=== PATIENT | male | born 1940 | race Caucasian/White ===

== ENCOUNTER 2016-12-26 05:09 | Inpatient (IN) | payer MEDICARE, OTHER ==
[2016-12-26] VITALS (16 sets, daily range): BP systolic 99–150; BP diastolic 63–80; PULSE 76–119; RESP 14–24; O2SAT 91–99
[~2016-12-26] VITALS: Ht 180.3 cm; Wt 104.2 kg
[~2016-12-26 05:09] MED LIST: ALBU8.5H2 INHALATION; ATEN25TA PO; BECL8.7A6 IH; FEXO-46 PO; IPRA3AMP IH; MONT10TA23 PO; OMEP20TA86 PO; OXYC5TAB72 PO; POLY17PO6 PO
[2016-12-26] MEDS ORDERED: Albuterol-Ipratropium 3 mL Inhalation Solution ONE (05:17)
[2016-12-26] MEDS ORDERED: Albuterol 2.5 mg/3 mL Inhalation Solution NEB ONE ×2 (05:24→05:25)
[2016-12-26] MEDS ORDERED: MethylprednisoLONE Sodium Succinate 62.5 mg/mL 2 mL Inj IVPUSH ONE (05:25)
[2016-12-26 05:26] LABS: BASOPHILS % (AUTO) 0.5 % (0-3); EOSINOPHILS % (AUTO) 2.2 % (0-5); MONOCYTES % (AUTO) 5.9 % (4-12); Mean Corpuscular Hemoglobin 29.3 pg (27.0-35.0); Platelet Count 240 bil/L (150-400)
[2016-12-26 05:52] LABS: TROPONIN T 0.01 ug/L (0.0-0.011)
--- NOTE | 2016-12-26 06:02 | ED.REPORT ---
HPI-Dyspnea / Wheezing Date of Service Dec 26, 2016 ED Provider: Timmy Pozo MD 76 year old male with a history of COPD and HTN presents to the ER via EMS due to acute on chronic shortness of breath onset just prior to arrival. He states that he recently started smoking again, about 1/2 pack daily for the past 3-4 weeks and reports associated respiratory symptoms. Over the past 4 days he has increased his cigarette consumption. This morning when he went outside to smoke he felt dramatically worsening shortness of breath and called EMS. Patient denies fever, chills, nausea, vomiting, diarrhea, and any significant cardiac history. At home he is on O2, and takes a DuoNeb every 4 hours. Nursing Notes Stated Complaint: DIFFICULTY BREATHING Chief Complaint: Respiratory Distress Nursing Notes Reviewed: Yes Allergies: Coded Allergies: Penicillins (Verified Allergy, Severe, Skin rash, 12/26/16) Scheduled Atenolol (Atenolol) 25 Mg Tablet 25 MG PO DAILY Fexofenadine (Fexofenadine) 60 Mg Tablet 60 MG PO DAILY Fluticasone Propionate (Flovent HFA 110 mcg) Unknown Strength Aer.w.adap Unknown Dose IH BID Ipratropium/Albuterol Sulfate (Iprat-Albut 0.5-3(2.5) mg/3 mL Inhalant Soln) 3 Ml Ampul.neb 3 ML IH Q4H Montelukast (Montelukast) 10 Mg Tablet 10 MG PO HS Omeprazole (Omeprazole) 20 Mg Tablet.dr 20 MG PO BID Scheduled PRN Albuterol HFA (Proair HFA) 8.5 Gm Hfa.aer.ad 4 PUFFS INHALATION BID PRN PRN For Shortness of Breath General Time Seen by MD: 05:25 Chief Complaint Shortness of breath Hx Obtained From: Patient Arrived By: Ambulance Onset Occurred: Just prior to arrival Symptom Duration: Since onset Associated with: Denies: Fever, Nausea, Vomiting Pertinent Negative: Pt denies other symptoms Context Related History: Reports: COPD, Denies: Congestive heart failure Similar Sx Previous: Yes Past Medical History Past Medical History RA Sleep apnea History of pancreatitis Denies history of AL Reports: COPD, GERD, Hyperlipidemia, Hypertension, Denies: Cancer, Congestive heart failure, Coronary artery disease, Diabetes mellitus, Stroke, Transient ischemic attack Denies: Atrial fibrillation Past Surgical History Right great toe arthroplasty Right knee repair Reports: Appendectomy, Cholecystectomy Smoking History Current Every Day Smoker Review of Systems Constitutional: Denies: Chills, Fever Respiratory: Reports: Shortness of breath, Denies: Non-productive cough Cardiovascular: Denies: Chest pain, Palpitations Musculoskeletal: Denies: Extremity swelling Complete sys rev & neg: except as marked. GI: Denies: Diarrhea, Nausea, Vomiting Physical Exam Initial Vital Signs Vital Signs (First) Date Time Temp Pulse Resp B/P Pulse Ox O2 Delivery O2 Flow Rate FiO2 12/26/16 05:13 37.0 118 24 150/80 99 12/26/16 05:59 Venturi Mask 9 Initial VS: Reviewed Head / Eyes: Atraumatic, Normocephalic Abdomen / GI: Soft, Non-tender, No guarding, No rebound, No distention Extremities: Vascular intact, Neuro intact, No swelling, No tenderness Skin: Warm, Dry, No cyanosis Neurologic: Alert, Oriented, Nonfocal General/Constitutional: Awake, Alert, Well developed, Well nourished Neck: Atraumatic, Supple, No meningismus, Full range of motion, No swelling, Non-tender, No masses Respiratory / Chest: No rales, No rhonchi Wheezing / Retractions: Positive: Wheezing expiratory, Wheezing mild Bloody, dark sputum. Cardiovascular: Regular rhythm, No murmurs Heart Rate / Rhythm: Positive: Tachycardia Interpretation & Diagnostics Lab Results Interpretation Result Diagram: 12/26/1622 12/26/16 0522 Test 12/26/16 05:22 12/26/16 05:55 White Blood Count 19.3th/mm3 (3.8-10.1) Red Blood Count 5.84mil/mm3 (4.40-5.80) Hemoglobin 17.1g/dL (13.8-17.2) Hematocrit 51.4% (41.0-50.0) Mean Corpuscular Volume 88.0fL (81-100) Mean Corpuscular Hemoglobin 29.3pg (27.0-35.0) Mean Corpuscular Hemoglobin Concent 33.3% (32.0-37.0) Red Cell Distribution Width 14.3% (12.3-15.4) Platelet Count 240bil/L (150-400) Neutrophils (%) (Auto) 80.0% (40-74) Lymphocytes (%) (Auto) 10.8% (14-46) Monocytes (%) (Auto) 5.9% (4-12) Eosinophils (%) (Auto) 2.2% (0-5) Basophils (%) (Auto) 0.5% (0-3) Sodium Level 139mEq/L (134-144) Potassium Level 4.0mEq/L (3.5-5.2) Chloride Level 100mEq/L (97-108) Carbon Dioxide Level 22mmol/L (18-29) Blood Urea Nitrogen 9mg/dL (8-27) Creatinine 0.71mg/dL (0.76-1.27) Estimat Glomerular Filtration Rate 115mL/min (>59) Glucose Level 99mg/dL (60-99) Calcium Level 9.8mg/dL (8.5-10.1) Magnesium Level 2.1mg/dL (1.6-2.6) Total Bilirubin 0.3mg/dL (0.0-1.2) Aspartate Amino Transf (AST/SGOT) 29U/L (0-50) Alanine Aminotransferase (ALT/SGPT) 31U/L (0-44) Alkaline Phosphatase 141U/L (25-160) Troponin T 0.010ug/L (0.0-0.011) Total Protein 8.2g/dL (6.4-8.4) Albumin 5.0g/dL (3.4-5.0) Procalcitonin 0.06ng/mL (0.00-0.08) Lactic Acid Level 1.2mmol/L (0.4-2.0) Hold Nguyen Top Tube Received (Received) ECG Interpretation ECG Interpretation: Sinus tachycardia Nonspecific T wave abnormal Mutliple PVC's Time: 06:04 Interpreted by: ED physician X-Ray Chest Interpretation Chest Xray Interpretation: No infiltrate. View: Portable, 1 view Interpretation / Wet Read by: Wet read ED physician Re-Eval/Medical Decision Med Decision/Clinical Course I decided to admit this gentleman empirically for pneumonia despite the relatively normal x-ray and lack of infectious symptoms because of his purulent appearing sputum with blood streaking and severe leukocytosis in the setting of severe COPD. Source of Hx: Old records Re-Evaluation/Progress : Time of Eval: 06:16 Re-Evaluation/Progress Note: Discussed physical examination results and need for admission. Patient is amenable to the plan. All other questions addressed. Consultation : Referral / Consult Name: MichealMax MD Consulted With: Hospitalist Requested Call at: 06:26 Call Returned at: 07:41 Labor Employment Associate: Agrees with eval, Agrees with plan, Accepts admit Counseled Regarding: Diagnosis, Lab results, Need for admission Discharge & Departure Impression: Primary Impression: Pneumonia, community acquired Additional Impression: COPD exacerbation Disposition: ADMITTED TO HOSPITAL Discharge Condition All VS Reviewed: Yes Condition: Stable Referrals: Jane Morales MD (PCP) Shayla Attestation Portions of this note were transcribed by Lowell Arellano. I, Dr. Pozo, personally performed the history, physical exam and medical decision-making; I reviewed and confirmed the accuracy of the information in the transcribed note. Signed by: Shayla Griffin, 12/26/2016 and 07:44 copies to: Jane Morales MD, Kirk H MD Dec 26, 2016 06:02 LOWELL ARELLANO Dec 26, 2016 06:10
[2016-12-26 06:04] LABS: Magnesium 2.1 mg/dL (1.6-2.6)
[2016-12-26] MEDS ORDERED: Azithromycin Inj 500 MG in Dextrose 5% 250 ML IV ONE (06:15)
[2016-12-26] MEDS ORDERED: cefTRIAXone Inj 2,000 MG in Dextrose 5% Minibag Plus 50 ML IV ONE (06:15)
[2016-12-26] MEDS ORDERED: 0.9% Sodium Chloride 1,000 ML IV ONE (06:15)
[2016-12-26] MEDS ORDERED: FLUT12AE8 IH (07:17)
[2016-12-26] MEDS ORDERED: Polyethylene Glycol (PEG) 17 Gm Powder PO PRN (07:50)
[2016-12-26] MEDS ORDERED: Ondansetron 2 mg/mL 2 mL Inj IVPUSH PRN (08:10)
[2016-12-26] MEDS ORDERED: Alum-Mag Hydrox-Simeth 30 mL Suspension PO PRN (08:10)
[2016-12-26] MEDS ORDERED: FEXOFENADINE 60 MG PO SCH (08:30)
--- NOTE | 2016-12-26 08:35 | NUR ---
ADMIT Report received from Sage Veras RN, from ED. Pt brought onto floor via gurney at 0835. Pt unsteady on feet, but able to bear weight. Admit interventions and MED REC completed by admit nurse. Pt oriented to unit, room and call light. Belongings recorded and placed in closet/bedside with waiver signed. Plan to have watch video when we can locate. Pt given pt services booklet. No apparent s/sx of distress. Pt plan put on board and instructions given about care.
--- NOTE | 2016-12-26 08:56 | DRSVH ---
PROCEDURE: X-RAY CHEST ONE VIEW, PORTABLE ([id number]) INDICATIONS: sob TECHNIQUE: One view of the chest was acquired. COMPARISON: Located Within [facility], CR, CHEST 1VW (PORTABLE), 03/12/2013, 9:13. [facility] al, CT, CT CHEST WO CON, 03/01/2016, 14:19. FINDINGS: Surgical changes and devices: None. Lungs and pleura: No pleural effusions or pneumothorax. Lungs are clear. Mediastinum: Mediastinal contours appear normal. Heart size is normal. Bones and chest wall: No suspicious bony lesions. Overlying soft tissues appear unremarkable. Bone island redemonstrated within the left fifth posterior rib. IMPRESSION: No acute cardiopulmonary disease. Dictated by: Robert Pardo RRA Interpreted: Svetlana Ngo MD on 12/26/2016 at 8:56 Transcribed by: ISIS on 12/26/2016 at 8:56 Approved by: Svetlana Ngo MD, PhD on 12/26/2016 at 16:30
[2016-12-26 10:24] LABS: APPEARANCE,URINE HAZY (CLEAR,HAZY); COLOR,URINE STRAW (YELLOW)
[2016-12-26 10:25] LABS: OCCULT BLOOD,URINE TRACE (NEGATIVE); UROBILINOGEN,URINE NORMAL (NORMAL)
[2016-12-26] MEDS: MethylprednisoLONE Sodium Succinate 40 mg/mL Inj IVPUSH SCH ×3 (10:35→23:43)
[2016-12-26] MEDS: Pantoprazole 20 mg ER24 Tablet PO SCH ×2 (10:35→17:12)
--- NOTE | 2016-12-26 11:50 | NUR ---
Pt off floor to CT via WC
--- NOTE | 2016-12-26 12:28 | DRSVH ---
PROCEDURE: CT ANGIO CHEST PULMONARY EMBOLISM ([id number]) INDICATIONS: Hypoxia with normal CXR TECHNIQUE: After the administration of intravenous contrast, 2 mm thick sections acquired from the pulmonary api marcy to the posterior costophrenic angles. 3-dimensional maximum intensity projection (MIP) coronal a nd sagittal reformats were then acquired through the thorax. For radiation dose reduction, the follo wing was used: automated exposure control, adjustment of mA and/or kV according to patient size. COMPARISON: [facility], CT, CT CHEST WO CON, 03/01/2016, 14:19. FINDINGS: Image quality: Excellent. Pulmonary arteries: Pulmonary arteries are normal in size, and demonstrate no intraluminal filling d efects to suggest central pulmonary embolism. Lungs and pleura: No evidence of pneumonia, nor edema. Multiple subpleural nodules within the right u pper lobe, right posterior lung base, and left upper lobe, are unchanged. No pleural effusions or pne umothorax. Central and peripheral airways are patent. Mediastinum: Heart size is normal, without pericardial effusion. There is calcification of the coron grant vasculature. No mediastinal or hilar adenopathy. Thoracic aorta is normal in caliber and enhance ment. Esophagus is normal in caliber, without hiatal hernia. Bones and chest wall: No suspicious bony lesions. Ribs and thoracic spine appear intact throughout. Thyroid gland is within normal limits. No axillary or supraclavicular adenopathy. Abdomen: Visualized portions of the upper abdomen demonstrate no change in the peripherally calcifie d low-density focus in the right hepatic dome laterally, and no change in the low-density focus withi n the medial segment left hepatic lobe measuring roughly 20 mm. There is a 16 mm diameter low-density left adrenal nodule, which demonstrates canceled units of -1.2, consistent with an adenoma, which ap pears to be new since the prior examination. IMPRESSION: 1. No acute process. No pulmonary embolus. 2. No change in small bilateral pulmonary nodules. 3. Cardiomegaly and coronary artery disease. 4. Left adrenal adenoma. Dictated by: Esperanza Self M.D. on 12/26/2016 at 12:22 Approved by: Esperanza Self M.D. on 12/26/2016 at 12:27
[2016-12-26] MEDS: Albuterol 2.5 mg/3 mL Inhalation Solution NEB PRN ×2 (14:03→16:15)
[2016-12-26] MEDS: Albuterol-Ipratropium 3 mL Inhalation Solution NEB SCH ×2 (14:30→20:59)
--- NOTE | 2016-12-26 16:04 | NUR ---
O2 Needs/Ambulation Upon arrival to floor pt tapicnic and SOB with any activity. Given 2-3L O2 NC as needed. Pt respirations WNL, SpO2 in high 90's. After SOB episode was over, place pt back on Room Air. CPOX monitoring in place. Pt satting in mid 90's and tolerating well. Pt directed to not overexert self and call for assistance to ambulate. Ambulation Upon arrival pt very unsteady but able to bear weight. After eating and later in shift, pt found to be steady on feet. Continuing as SBA for safety.
--- NOTE | 2016-12-26 17:31 | PCM.HPMED ---
Subjective Date of Service Dec 26, 2016 Primary Provider: Admitting Physician: Max Burton MD Primary Care Physician: Jane Morales MD Attending Physician: Max Burton MD Chief Complaint: "I was extremely short of breath" History of Present Illness: Patient is a 76-year-old white male with history of COPD and hypertension who recently started smoking again approximately half a pack a day for the past 3 or 4 weeks and reports associated respiratory symptoms. Over the past 4 days he has increased his cigarette consumption. This morning when he went outside to smoke he felt dramatically worse with increased shortness of breath and he went back inside and lacks a door and called EMS services. Patient was seen by EMS services was given a DuoNeb treatment in route to the hospital. Patient was brought to [facility] emergency room where he was evaluated by Dr. Timmy Pozo. Dr. Pozo did a CBC which showed a white blood cell count of 19,300.. Patient had a chest x-ray which showed no acute disease. However due to the elevated white blood cell count and acute on chronic respiratory failure patient was presumed to have pneumonia or acute exacerbation of chronic bronchitis with exacerbation of COPD with acute and chronic respiratory failure and patient was admitted to the hospital service for further evaluation and treatment recommendations. Review of Systems: General: Patient has had no fever chills or sweats. However, he states that he has not intentionally lost 15 pounds recently by putting himself on a diet. HEENT: Patient has no headache, patient has no diplopia, patient has no changes in vision. Patient has no problems with his ears, nose or throat. Patient wears upper and lower dentures.. Patient has no pharyngitis or history of thrush. Neck: Patient has no stiffness in the neck. Patient has no lymphadenopathy. Patient has no other problems with their neck. Pulmonary: Patient has shortness of breath which has improved since treatment in the emergency room. He still is uncomfortable. And his breathing interferes with his ability to speak somewhat has known COPD and is on oxygen at home. However he admits to recently starting smoking and increasing in number of cigarettes that he has been smoking a day. Cardiovascular: Patient has no chest pain. Patient has no history of heart murmur. Patient has no palpitations. Patient has no history of myocardial infarction. Patient has no history of coronary artery disease. He has never had a stress test. Gastrointestinal: Patient has no history of hepatitis A, B or C. Patient has no history of peptic ulcer disease. Patient has no history of gastroesophageal reflux disease. Patient has no history of nausea, vomiting, or diarrhea. Patient has no history of hematemesis, hematochezia, or melena. Patient has no history of colitis. She was diagnosed with gallstone pancreatitis probably 5 years ago and this resulted in a cholecystectomy. Renal: Patient has no history of kidney disease. No history of kidney stones. Genitourinary: Patient has no history of dysuria, frequency, or incontinence at this time. However he had a TURP for benign prostatic hypertrophy. Now he only gets up to the bathroom once at night. And he has no incontinence. Musculoskeletal: Patient has no history of muscular skeletal problems. Neurologic: Patient has no history of stroke, no history of seizure, no history of TIA. Psychiatric: Patient has no history of psychiatric problems. Although he has had a lot of anxiety over the news lately and attributes his relapse into cigarette smoking to this. The remainder of the entire review of systems was reviewed with patient and is as mentioned above otherwise negative. Allergies Coded Allergies: Penicillins (Verified Allergy, Severe, Skin rash, 12/26/16) Home Medications Scheduled Atenolol (Atenolol) 25 Mg Tablet 25 MG PO DAILY Fexofenadine (Fexofenadine) 60 Mg Tablet 60 MG PO DAILY Fluticasone Propionate (Flovent HFA 110 mcg) Unknown Strength Aer.w.adap Unknown Dose IH BID Ipratropium/Albuterol Sulfate (Iprat-Albut 0.5-3(2.5) mg/3 mL Inhalant Soln) 3 Ml Ampul.neb 3 ML IH Q4H Montelukast (Montelukast) 10 Mg Tablet 10 MG PO HS Omeprazole (Omeprazole) 20 Mg Tablet.dr 20 MG PO BID Scheduled PRN Albuterol HFA (Proair HFA) 8.5 Gm Hfa.aer.ad 4 PUFFS INHALATION BID PRN PRN For Shortness of Breath PMH RA is on his computerized list of past medical history patient denies any history of rheumatoid arthritis. He certainly is not being treated for. Sleep apnea, he is not sure about this diagnosis either. History of pancreatitis. He did have gallstone pancreatitis in the past Denies history of NC or other heart disease however he has never had a stress test. Patient report: COPD for which he sees Dr. Rod, GERD, Hyperlipidemia, Hypertension, Surgical History Patient has had a tonsillectomy as a young boy. Patient has had all 4 of his wisdom teeth removed Patient has had a transurethral resection of his prostate. Patient has had a right great toe arthroplasty. Patient has had a right knee repair by arthroscopy. Patient has had a cholecystectomy 5 years ago here at [facility] by Dr. Guerrero. Patient had an umbilical hernia repair with mesh by Dr. Rod Patient's computerized chart states that he had an appendectomy. He states that he has never had an appendectomy. Family History Patient's mother in her 70s from emphysema. Patient's father in his 70s from "cancer" Patient has 1 sibling a sister who is "overweight" he does not know of any other medical problems that his sister might have Social History Hx Alcohol Use: Yes (he drank beer for the first 6 years that he was in the but since then has not had much appetite for alcohol) Hx Substance Use: No Hx Tobacco Use: Yes (Quit last year 2008) Smoking Status: Current Every Day Smoker Additional Information He was born in [place] and graduated high school there and [place]. He went to 2 years of college and then dropped out. 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 He was for 7 years and has one child who is a daughter who lives in [place]. He tells me that his ex- could not handle substance abuse and committed suicide. For the first 6 years in the he drank quite a bit of beer, but since then has not had much of an appetite for alcohol She smoked 1 pack per day from the age of approximately 23 to his 60s. He then quit and then recently approximately 3-4 weeks ago started smoking again. He has been smoking half pack per day he attributes this to the negative news that he is seeing on TV and reading the paper. More recently he smoking even more. Exam Vital Signs Vital Sign - Last Date Time Temp Pulse Resp B/P Pulse Ox O2 Delivery O2 Flow Rate FiO2 12/26/16 16:15 82 20 95 Nasal Cannula 2.00 12/26/16 10:44 36.6 130/69 Exam General: Patient is lying supine in bed with his head elevated at approximately 20. HEENT: Head is atraumatic and normocephalic. Eyes: Pupils are equally round and reactive to light and accommodation. Extraocular muscles are intact. Sclera are white, anicteric. Subconjunctival mucosa is pink. Ears and nose are unremarkable. Oropharynx: There is no mucosal lesions, there is no thrush, there is no pharyngitis. Neck: Is supple, there are no nodes, or masses or tenderness. Chest: Is significant for bilateral scattered wheezing and decreased breath sounds throughout. There are no rubs or rhonchi noted Heart: Rate, rhythm is regular. There is no murmur, rub or gallop. Abdomen: Good bowel sounds are present. Abdomen is soft, nontender, no organomegaly or masses were appreciated. Extremities: Are symmetrical and well perfused. There is no edema, there is no cellulitis, no rash. Neurologic: There are no focal neurological deficits. Cranial nerves II through XII are intact. There are no sensory or motor deficits. Psychiatric: Patients mood is calm and shows no sign of agitation. Genital: Deferred Rectal: Deferred Lab and Diagnostics Result Diagram: 12/26/1652112/26/16521 X-Rays, CTs and MRIs PROCEDURE: X-RAY CHEST ONE VIEW, PORTABLE ([id number]) INDICATIONS: sob TECHNIQUE: One view of the chest was acquired. COMPARISON: [facility], CR, CHEST 1VW (PORTABLE), 03/12/2013, 9:13. [facility], CT, CT CHEST WO CON, 03/01/2016, 14:19. FINDINGS: Surgical changes and devices: None. Lungs and pleura: No pleural effusions or pneumothorax. Lungs are clear. Mediastinum: Mediastinal contours appear normal. Heart size is normal. Bones and chest wall: No suspicious bony lesions. Overlying soft tissues appear unremarkable. Bone island redemonstrated within the left fifth posterior rib. IMPRESSION: No acute cardiopulmonary disease. Dictated by: Robert Pardo RRA Interpreted: Svetlana Ngo MD on 12/26/2016 at 8:56 Transcribed by: ISIS on 12/26/2016 at 8:56 Approved by: Svetlana Ngo MD, PhD on 12/26/2016 at 16:30 PROCEDURE: CT ANGIO CHEST PULMONARY EMBOLISM ([id number]) INDICATIONS: Hypoxia with normal CXR TECHNIQUE: After the administration of intravenous contrast, 2 mm thick sections acquired from the pulmonary apices to the posterior costophrenic angles. 3-dimensional maximum intensity projection (MIP) coronal and sagittal reformats were then acquired through the thorax. For radiation dose reduction, the following was used: automated exposure control, adjustment of mA and/or kV according to patient size. COMPARISON: [facility], CT, CT CHEST WO CON, 03/01/2016, 14:19. FINDINGS: Image quality: Excellent. Pulmonary arteries: Pulmonary arteries are normal in size, and demonstrate no intraluminal filling defects to suggest central pulmonary embolism. Lungs and pleura: No evidence of pneumonia, nor edema. Multiple subpleural nodules within the right upper lobe, right posterior lung base, and left upper lobe, are unchanged. No pleural effusions or pneumothorax. Central and peripheral airways are patent. Mediastinum: Heart size is normal, without pericardial effusion. There is calcification of the coronary vasculature. No mediastinal or hilar adenopathy. Thoracic aorta is normal in caliber and enhancement. Esophagus is normal in caliber, without hiatal hernia. Bones and chest wall: No suspicious bony lesions. Ribs and thoracic spine appear intact throughout. Thyroid gland is within normal limits. No axillary or supraclavicular adenopathy. Abdomen: Visualized portions of the upper abdomen demonstrate no change in the peripherally calcified low-density focus in the right hepatic dome laterally, and no change in the low-density focus within the medial segment left hepatic lobe measuring roughly 20 mm. There is a 16 mm diameter low-density left adrenal nodule, which demonstrates canceled units of -1.2, consistent with an adenoma, which appears to be new since the prior examination. IMPRESSION: 1. No acute process. No pulmonary embolus. 2. No change in small bilateral pulmonary nodules. 3. Cardiomegaly and coronary artery disease. 4. Left adrenal adenoma. Dictated by: Esperanza Self M.D. on 12/26/2016 at 12:22 Approved by: Esperanza Self M.D. on 12/26/2016 at 12:27 Assessment & Plan Patient is a 76-year-old white male with history of COPD and hypertension who recently started smoking again approximately half a pack a day for the past 3 or 4 weeks and reports associated respiratory symptoms. Over the past 4 days he has increased his cigarette consumption. This morning when he went outside to smoke he felt dramatically worse with increased shortness of breath and he went back inside and lacks a door and called EMS services. Patient was seen by EMS services was given a DuoNeb treatment in route to the hospital. Patient was brought to [facility] emergency room where he was evaluated by Dr. Timmy Pozo. Dr. Pozo did a CBC which showed a white blood cell count of 19,300.. Patient had a chest x-ray which showed no acute disease. However due to the elevated white blood cell count and acute on chronic respiratory failure patient was presumed to have pneumonia or acute exacerbation of chronic bronchitis with exacerbation of COPD with acute and chronic respiratory failure and patient was admitted to the hospital service for further evaluation and treatment recommendations. # Acute on chronic respiratory failure with hypoxia - Likely due to AECB (known as acute exacerbation of chronic bronchitis) - We will continue SVN treatments with DuoNeb and albuterol. - We will continue with IV Solu-Medrol, scheduled basis. 125 mg were given in the emergency room. - We will continue with Rocephin and azithromycin given in the emergency room. -We will check blood cultures which are pending - We will order sputum cultures - We will check a respiratory pathogen panel by PCR - We will check a strep pneumonia and urinary antigen and Legionella urinary antigen. - We will continue montelukast # Hypertension - We will continue patient's home medications of atenolol - We will continue to monitor closely # Anxiety leading to recent recurrent tobacco use - Patient counseled on ways to alleviate his anxiety. - The patient was encouraged to quit smoking. # Multiple subpleural nodules within the right upper lobe, right posterior lung base, and left upper lobe - These are reported to be unchanged compared to previous CT scan done in February 2016.. - We will check cocci serology and cryptococcal serology. # Disposition: Patient is likely to be here for a few days in order to improve his acute on chronic respiratory failure. Pain Evaluation: Adequate Pain Control GI Prophylaxis: Proton Pump Inhibitor VTE Prophylaxis: Sub-Q Enoxaparin Resuscitation Status: CPR: Attempt Resuscitation Max Burton MD Dec 26, 2016 17:31
--- NOTE | 2016-12-26 18:16 | NUR ---
TELE Tele reported pt SR 90's with PVCs in pairs and triplets, becoming more common this afternoon. MD notified, new orders placed. Continuing to follow up with plan.
[2016-12-26 19:21] LABS: Magnesium 2.1 mg/dL (1.6-2.6)
--- NOTE | 2016-12-26 22:50 | NUR ---
Resp Pt has faint wheezes to lung bases. Overall decreased. Pt states, "I am feeling much better." He does not require oxygen at this time. Reviewed nebulizer schedule. Pt verbalizes understanding. Will cont to monitor
[2016-12-27] VITALS (13 sets, daily range): BP systolic 118–143; BP diastolic 65–77; PULSE 52–94; RESP 18–20; O2SAT 92–96
[2016-12-27] MEDS: Albuterol 2.5 mg/3 mL Inhalation Solution NEB PRN ×2 (00:08→06:02)
[2016-12-27] MEDS: Albuterol-Ipratropium 3 mL Inhalation Solution NEB SCH ×4 (03:03→20:36)
[2016-12-27 06:48] LABS: BASOPHILS % (AUTO) 0.1 % (0-3); EOSINOPHILS % (AUTO) 0 % (0-5); MONOCYTES % (AUTO) 3.2 % (4-12); Mean Corpuscular Hemoglobin 29.7 pg (27.0-35.0); Mean Corpuscular Volume 89.5 fL (81-100); Platelet Count 196 bil/L (150-400)
[2016-12-27 07:29] LABS: Magnesium 2.2 mg/dL (1.6-2.6)
[2016-12-27] MEDS: cefTRIAXone Inj 2,000 MG in Dextrose 5% Minibag Plus 50 ML IV SCH (07:37)
[2016-12-27] MEDS: Pantoprazole 20 mg ER24 Tablet PO SCH ×2 (07:37→16:18)
[2016-12-27] MEDS: MethylprednisoLONE Sodium Succinate 40 mg/mL Inj IVPUSH SCH ×2 (07:38→16:18)
--- NOTE | 2016-12-27 08:55 | NUR ---
off floor-xray pt off the floor for a chest X-ray.
[2016-12-27] MEDS: Azithromycin Inj 500 MG in Dextrose 5% w/Vial Mate 250 ML IV SCH (09:24)
--- NOTE | 2016-12-27 11:22 | DRSVH ---
PROCEDURE: X-RAY CHEST, TWO VIEWS ([id number]) INDICATIONS: hypoxia with leukocytosis TECHNIQUE: 2 views of the chest were acquired. COMPARISON: [facility], CT, CT ANGIO CHEST PE, 12/26/2016, 11:55. [facility] , CR, XR CHEST 1VW (PORTABLE), 12/26/2016, 5:17. [facility], CR, CHEST 1VW (PORTABLE), 01/2013, 9:13. FINDINGS: Surgical changes and devices: None. Lungs and pleura: No pleural effusions or pneumothorax. Lungs are abnormal with chronic interstitia l prominence, and large lung volumes to the degree of COPD is presumed. Mediastinum: Mediastinal contours are normal. Heart size is normal. Bones and chest wall: No suspicious bony abnormalities. Soft tissues appear unremarkable. IMPRESSION: COPD but no acute disease, chronic interstitial prominence. A definite source of leukocy tosis is not seen. Dictated by: Wilmar Kim M.D. on 12/27/2016 at 11:20 Approved by: Wilmar Kim M.D. on 12/27/2016 at 11:20
--- NOTE | 2016-12-27 11:53 | DRSVH ---
[facility] [address] [place] [address] Echocardiogram Report Name: CARRINGTON MARMOLEJO VStudy Date : 12/27/2016 Height: 71 in Hospital Exam Location: [facility] Weight: 215 lb Gender: Male BSA: 2. 2 m2 : 1940 Age: 76 yrs BP: 128 /63 mmHg Reason For Study: Hypoxia Ordering Physician: HOSPITALIST [facility] Performed By: Miley Collier Referring Physician: Dr Jane Morales Interpretation Summary The left ventricle is grossly normal size. The ejection fraction is estimated to be 60-65%. There are no obvious focal wall motion abnormalities noted but poor endocardial definition reduces the sensitivity for the detection of such. The right ventricle is normal in size and function. The right ventricular systolic pressure is estimated at 27 mmHg assuming a right atrial pressure of 8 mm Hg. The left atrium is mildly dilated. The right atrium is mild to moderately dilated. There is no clear cut evidence for valvular heart disease. The aortic root is mildly dilated. The ascending aorta is mildly enlarged. Procedure: A two-dimensional transthoracic echocardiogram with color flow and Doppler was performed. The study quality was technically difficult. There is no prior echocardiogram noted for this patient. The patient was in normal sinus rhythm during the exam. The patient had occasional PVCs during the exam. Left Ventricle: The left ventricle is grossly normal size. Left ventricular systolic function is normal. The ejection fraction is estimated to be 60-65%. There are no obvious focal wall motion abnormalities noted but poor endocardial definition reduces the sensitivity for the detection of such. Diastolic function could not be accurately assessed due to unobtainable data. Right Ventricle: The right ventricle is normal in size and function. Atria: The left atrium is mildly dilated. The right atrium is mild to moderately dilated. The interatrial septum is intact with no evidence for an atrial septal defect. Mitral Valve: The mitral valve is not well visualized. The mitral valve is grossly normal. There is no mitral regurgitation noted. Aortic Valve: The aortic valve is not well visualized. The aortic valve opens well. No aortic regurgitation is present. Tricuspid Valve: The tricuspid valve is not well visualized, but is grossly normal. There is a trace or physiologic amount of tricuspid regurgitation. The right ventricular systolic pressure is estimated at 27 mmHg assuming a right atrial pressure of 8 mm Hg. Pulmonic Valve: The pulmonic valve is not well visualized. There is no pulmonic valvular regurgitation. There is no significant valvular heart disease. Great Vessels: The aortic root is mildly dilated. The ascending aorta is mildly enlarged. The pulmonary artery is not well visualized, but is probably normal size. The IVC is of normal diameter and collapses less than 50% with a sniff. This suggests a right atrial pressure of 8 mm Hg. Pericardium/ Pleura There is no pericardial effusion. There is no pleural effusion. MMode/2D Measurements & Calculations RA long axis Ao root diam RVD1 (basal) LA A2 area: 23.4 cm : 4.3 cm LA A4 area: 19.1 cm asc Aorta Diam LA length (vol) RA area: 24.0 cm RA vol: 87.3 ml LA vol: 70.5 ml RA : 40.1 ml/m LA vol index RVDd major: 7.3 cm IVC diam: 2.8 cm RVD2 (mid): 4.3 cm Doppler Measurements & Calculations Ao V2 max MV E max michelle MV E/A: 0.79 TR max michelle : 133.7 cm/sec : 75.9 cm/sec MV A dur: 0.13 sec: 219.4 cm/sec Ao max PG MV A max michelle TR max PG : 7.1 mmHg : 96.0 cm/sec : 19.3 mmHg Ao mean PG MV P1/2t: 92.2 msec PA V2 max : 3.2 mmHg : 101.2 cm/sec PA mean PG PA Accel Time : 0.14 sec MV dec time MV P1/2t max michelle Ao V2 mean PA V2 mean : 0.32 sec : 80.6 cm/sec : 68.6 cm/sec Ao V2 VTI: 26.8 cm MVA(P1/2t): 2.4 cm2 Reading Physician:JAIMIE
--- NOTE | 2016-12-27 13:02 | NUR ---
Social Work-initial assessment/ readiness for discharge: Data:See initial assessment. Pt is a 76 y/o male who was admitted on 12/26/16 for CAP per H&P. Pt's insurance is [employer] and PCP is Jane Morales MD. EMR Reviewed. Pt's readmission score is 3-high risk. SW met with pt at bedside to discuss discharge planning, SW role explained. Pt is alert and oriented x3. Pt resides at home alone where he remains independent with ADls. Pt has a fww/cane/ and powerchair, but does not use them. Pt drives and had no HH or SNF history. 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 SW discussed DPOA/ advanced directive, pt states he has completed this, SW encouraged a copy to be brought into the hospital. Per RN notes, pt has been independent in his room. Pt states he will take the bus home or his friend will pick him up .SW provided phone number and plan on white board in room. No anticipated discharge needs. SW will continue to follow if needs arise. Assessment:Pt who is independent at baseline. Plan:Pt to discharge home when medically stable via POV. No anticipated discharge needs. SW will continue to follow if needs arise. MIRNA Storey Addendum: 12/27/16 at 1307 by REYNA ZUNIGA SS Amended: Links added.
[2016-12-27] MEDS ORDERED: LORazepam 0.5 mg Tablet PO PRN (22:10)
--- NOTE | 2016-12-27 22:22 | PCM.PNMED ---
Subjective Date of Service Dec 27, 2016 Subjective Patient was sitting up on the side of bed and the room and he states he feels quite a bit better than he did yesterday. He has no other new complaints. Has no fever, no chills, no nausea, no vomiting and no diarrhea. Exam Vital Signs Vital Sign - Last Date Time Temp Pulse Resp B/P Pulse Ox O2 Delivery O2 Flow Rate FiO2 12/27/16 20:39 52 18 92 Room Air 12/27/16 20:24 36.7 134/73 12/27/16 09:35 2.00 Intake and Output 12/26/16 12/26/16 12/27/16 Cumulative From/Thru 15:00 23:00 07:00 12/26/16 05:13 - 12/27/16 05:51 Intake Total 3072 ml 1600 ml 4672 ml Output Total 1550 ml 3100 ml 4650 ml Balance 1522 ml -1500 ml 22 ml Intake Oral 1572 ml 1600 ml 3172 ml IV Total 1500 ml 1500 ml Output Urine Total 1550 ml 3100 ml 4650 ml # Voids 2 2 # Bowel Movements 1 0 1 Exam General: Patient is sitting up on the side of the bed. HEENT: Head is atraumatic and normocephalic. Eyes: Pupils are equally round and reactive to light and accommodation. Extraocular muscles are intact. Sclera are white, anicteric. Subconjunctival mucosa is pink. Ears and nose are unremarkable. Oropharynx: There is no mucosal lesions, there is no thrush, there is no pharyngitis. Neck: Is supple, there are no nodes, or masses or tenderness. Chest: Is significant for bilateral scattered wheezing and decreased breath sounds throughout. However, the breath sounds are much clearer today. There are no rubs or rhonchi noted. Heart: Rate, rhythm is regular. There is no murmur, rub or gallop. Abdomen: Good bowel sounds are present. Abdomen is soft, nontender, no organomegaly or masses were appreciated. Extremities: Are symmetrical and well perfused. There is no edema, there is no cellulitis, no rash. Neurologic: There are no focal neurological deficits. Cranial nerves II through XII are intact. There are no sensory or motor deficits. Patient's strength appears improved. Psychiatric: Patients mood is calm and shows no sign of agitation. Genital: Deferred Rectal: Deferred Lab and Diagnostics Result Diagram: 12/27/1661412/27/16614 Microbiology Name: CARRINGTON MARMOLEJO V Age/Sex: 76/M Attend Dr: Max Burton Acct: [id number] Unit: [id number] Status: ADM IN Location: [facility] [place] 3028-1 Re12/26/16 Disch: Specimen: [id number] Collected: 12/26/16 Status: RES Req#: [id number] Received: 12/27/16 Source: SPUTUM EXP Sp Desc : Subm Dr: Max Burton MD Ordered: GRAM SPT REFLEX, SPUTUM CULTURE Comments: Collected by Nurse/Unit? Y/N Y Procedure Result Verified Site Microbiology [place] [facility] SPUTUM Final 12/27/16-1002 SPT GRAM STAIN RARE EPITHELIAL CELLS RARE MIXED NORMAL OSWALDO NO POLYS SEEN This Spec is of good Quality and acceptable for Cult X-Rays, CTs and MRIs PROCEDURE: X-RAY CHEST ONE VIEW, PORTABLE ([id number]) INDICATIONS: sob TECHNIQUE: One view of the chest was acquired. COMPARISON: [facility], CR, CHEST 1VW (PORTABLE), 03/12/2013, 9:13. [facility], CT, CT CHEST WO CON, 03/01/2016, 14:19. FINDINGS: Surgical changes and devices: None. Lungs and pleura: No pleural effusions or pneumothorax. Lungs are clear. Mediastinum: Mediastinal contours appear normal. Heart size is normal. Bones and chest wall: No suspicious bony lesions. Overlying soft tissues appear unremarkable. Bone island redemonstrated within the left fifth posterior rib. IMPRESSION: No acute cardiopulmonary disease. Dictated by: Robert Pardo RRA Interpreted: Svetlana Ngo MD on 12/26/2016 at 8:56 Transcribed by: ISIS on 12/26/2016 at 8:56 Approved by: Svetlana Ngo MD, PhD on 12/26/2016 at 16:30 PROCEDURE: CT ANGIO CHEST PULMONARY EMBOLISM ([id number]) INDICATIONS: Hypoxia with normal CXR TECHNIQUE: After the administration of intravenous contrast, 2 mm thick sections acquired from the pulmonary apices to the posterior costophrenic angles. 3-dimensional maximum intensity projection (MIP) coronal and sagittal reformats were then acquired through the thorax. For radiation dose reduction, the following was used: automated exposure control, adjustment of mA and/or kV according to patient size. COMPARISON: [facility], CT, CT CHEST WO CON, 03/01/2016, 14:19. FINDINGS: Image quality: Excellent. Pulmonary arteries: Pulmonary arteries are normal in size, and demonstrate no intraluminal filling defects to suggest central pulmonary embolism. Lungs and pleura: No evidence of pneumonia, nor edema. Multiple subpleural nodules within the right upper lobe, right posterior lung base, and left upper lobe, are unchanged. No pleural effusions or pneumothorax. Central and peripheral airways are patent. Mediastinum: Heart size is normal, without pericardial effusion. There is calcification of the coronary vasculature. No mediastinal or hilar adenopathy. Thoracic aorta is normal in caliber and enhancement. Esophagus is normal in caliber, without hiatal hernia. Bones and chest wall: No suspicious bony lesions. Ribs and thoracic spine appear intact throughout. Thyroid gland is within normal limits. No axillary or supraclavicular adenopathy. Abdomen: Visualized portions of the upper abdomen demonstrate no change in the peripherally calcified low-density focus in the right hepatic dome laterally, and no change in the low-density focus within the medial segment left hepatic lobe measuring roughly 20 mm. There is a 16 mm diameter low-density left adrenal nodule, which demonstrates canceled units of -1.2, consistent with an adenoma, which appears to be new since the prior examination. IMPRESSION: 1. No acute process. No pulmonary embolus. 2. No change in small bilateral pulmonary nodules. 3. Cardiomegaly and coronary artery disease. 4. Left adrenal adenoma. Dictated by: Esperanza Self M.D. on 12/26/2016 at 12:22 Approved by: Esperanza Self M.D. on 12/26/2016 at 12:27 Cardiac Echo Impressions Echocardiogram Report Name: CARRINGTON MARMOLEJO VStudy Date : 12/27/2016 Height: 71 in Hospital Exam Location: [facility] Weight: 215 lb Gender: Male BSA: 2. 2 m2 : 1940 Age: 76 yrs BP: 128 /63 mmHg Reason For Study: Hypoxia Ordering Physician: HOSPITALIST [facility] Performed By: Miley Collier Referring Physician: Dr Jane Morales Interpretation Summary The left ventricle is grossly normal size. The ejection fraction is estimated to be 60-65%. There are no obvious focal wall motion abnormalities noted but poor endocardial definition reduces the sensitivity for the detection of such. The right ventricle is normal in size and function. The right ventricular systolic pressure is estimated at 27 mmHg assuming a right atrial pressure of 8 mm Hg. The left atrium is mildly dilated. The right atrium is mild to moderately dilated. There is no clear cut evidence for valvular heart disease. The aortic root is mildly dilated. The ascending aorta is mildly enlarged. Assessment & Plan Patient is a 76-year-old white male with history of COPD and hypertension who recently started smoking again approximately half a pack a day for the past 3 or 4 weeks and reports associated respiratory symptoms. Over the past 4 days he has increased his cigarette consumption. This morning when he went outside to smoke he felt dramatically worse with increased shortness of breath and he went back inside and lacks a door and called EMS services. Patient was seen by EMS services was given a DuoNeb treatment in route to the hospital. Patient was brought to [facility] emergency room where he was evaluated by Dr. Timmy Pozo. Dr. Pozo did a CBC which showed a white blood cell count of 19,300.. Patient had a chest x-ray which showed no acute disease. However due to the elevated white blood cell count and acute on chronic respiratory failure patient was presumed to have pneumonia or acute exacerbation of chronic bronchitis with exacerbation of COPD with acute and chronic respiratory failure and patient was admitted to the hospital service for further evaluation and treatment recommendations. # Acute on chronic respiratory failure with hypoxia - Likely due to AECB (known as acute exacerbation of chronic bronchitis) - We will continue SVN treatments with DuoNeb and albuterol. - We will continue with IV Solu-Medrol, scheduled basis. 125 mg were given in the emergency room. We will continue Cymetra 40 mg IV every 8 hours and continue to wean as tolerated. - We will continue with Rocephin and azithromycin given in the emergency room. -We will check blood cultures which are pending - We will order sputum cultures which are pending. - We have checked a respiratory pathogen panel by PCR and this was negative. - We will check a strep pneumonia and urinary antigen and Legionella urinary antigen. - We will continue montelukast # Hypertension - We will continue patient's home medications of atenolol - We will continue to monitor closely # Anxiety leading to recent recurrent tobacco use - Patient counseled on ways to alleviate his anxiety. - The patient was encouraged to quit smoking. - The patient now appears motivated to quit smoking. # Multiple subpleural nodules within the right upper lobe, right posterior lung base, and left upper lobe - These are reported to be unchanged compared to previous CT scan done in February 2016.. - We will check cocci serology and cryptococcal serology. # Disposition: Patient is likely to be here for a few days in order to improve his acute on chronic respiratory failure. Pain Evaluation: Adequate Pain Control GI Prophylaxis: Proton Pump Inhibitor VTE Prophylaxis: Sub-Q Enoxaparin VTE Mechanical Devices: Venous Foot Pump Resuscitation Status: CPR: Attempt Resuscitation Max Burton MD Dec 27, 2016 22:22
[2016-12-28] VITALS (11 sets, daily range): BP systolic 118–156; BP diastolic 58–90; PULSE 58–91; RESP 16–22; O2SAT 94–97
[2016-12-28] MEDS: MethylprednisoLONE Sodium Succinate 40 mg/mL Inj IVPUSH SCH ×3 (00:39→16:26)
[2016-12-28] MEDS: Albuterol-Ipratropium 3 mL Inhalation Solution NEB SCH ×4 (01:10→17:32)
[2016-12-28 07:21] LABS: BASOPHILS % (AUTO) 0.1 % (0-3); EOSINOPHILS % (AUTO) 0 % (0-5); MONOCYTES % (AUTO) 2.1 % (4-12); Mean Corpuscular Hemoglobin 29.4 pg (27.0-35.0); Mean Corpuscular Volume 89.6 fL (81-100); NEUTROPHILS % (AUTO) 90.9 % (40-74); Platelet Count 200 bil/L (150-400)
[2016-12-28 07:42] LABS: Magnesium 2.2 mg/dL (1.6-2.6)
[2016-12-28] MEDS: Pantoprazole 20 mg ER24 Tablet PO SCH ×2 (08:09→16:27)
[2016-12-28] MEDS: cefTRIAXone Inj 2,000 MG in Dextrose 5% Minibag Plus 50 ML IV SCH (09:08)
[2016-12-28] MEDS: Azithromycin Inj 500 MG in Dextrose 5% w/Vial Mate 250 ML IV SCH (10:14)
--- NOTE | 2016-12-28 22:28 | PCM.PNMED ---
Subjective Date of Service Dec 28, 2016 Subjective Patient is beginning to feel better. No new complaints. He is breathing better and coughing less. He states that he is able to go 6 hours in between DuoNeb treatments which he is normally not able to do at home. Exam Vital Signs Vital Sign - Last Date Time Temp Pulse Resp B/P Pulse Ox O2 Delivery O2 Flow Rate FiO2 12/28/16 20:30 Supplement Oxygen 12/28/16 20:27 36.7 74 20 132/69 97 12/27/16 09:35 2.00 Intake and Output 12/27/16 12/27/16 12/28/16 Cumulative From/Thru 15:00 23:00 07:00 12/26/16 05:13 - 12/28/16 06:36 Intake Total 1362 ml 480 ml 6514 ml Output Total 1375 ml 1520 ml 7545 ml Balance -13 ml -1040 ml -1031 ml Intake Oral 1012 ml 480 ml 4664 ml IV Total 350 ml 1850 ml Output Urine Total 1375 ml 1520 ml 7545 ml # Voids 2 # Bowel Movements 1 Exam General: Patient is laying on his right side in bed in no apparent distress. HEENT: Head is atraumatic and normocephalic. Eyes: Pupils are equally round and reactive to light and accommodation. Extraocular muscles are intact. Sclera are white, anicteric. Subconjunctival mucosa is pink. Ears and nose are unremarkable. Oropharynx: There is no mucosal lesions, there is no thrush, there is no pharyngitis. Neck: Is supple, there are no nodes, or masses or tenderness. Chest: Is significant for much clearer breath sounds today. There are no rubs or rhonchi noted. Heart: Rate, rhythm is regular. There are a few irregular beats here and there There is no murmur, rub or gallop. Abdomen: Good bowel sounds are present. Abdomen is soft, nontender, no organomegaly or masses were appreciated. Extremities: Are symmetrical and well perfused. There is no edema, there is no cellulitis, no rash. Neurologic: There are no focal neurological deficits. Cranial nerves II through XII are intact. There are no sensory or motor deficits. Patient's strength appears improved. Psychiatric: Patients mood is calm and shows no sign of agitation. Genital: Deferred Rectal: Deferred Lab and Diagnostics Result Diagram: 12/28/1658 12/28/1658 Microbiology Name: CARRINGTON MARMOLEJO V Age/Sex: 76/M Attend Dr: Max Burton Acct: [id number] Unit: [id number] Status: ADM [place] [facility] [place]28-1 Re12/26/16 Disch: Specimen: [id number] Collected: 12/26/16 Status: RES Req#: [id number] Received: 12/27/16 Source: SPUTUM EXP Sp Desc : Subm Dr: Max Burton MD Ordered: GRAM SPT REFLEX, SPUTUM CULTURE Comments: Collected by Nurse/Unit? Y/N Y Procedure Result Verified Site Microbiology [place] [facility] SPUTUM GS Final 12/27/16-1002 SPT GRAM STAIN RARE EPITHELIAL CELLS RARE MIXED NORMAL OSWALDO NO POLYS SEEN This Spec is of good Quality and acceptable for Cult RESPIRATORY CULTURE Preliminary 12/28/16-0841 SCANT NORMAL OSWALDO PRESENT X-Rays, CTs and MRIs PROCEDURE: X-RAY CHEST ONE VIEW, PORTABLE ([id number]) INDICATIONS: sob TECHNIQUE: One view of the chest was acquired. COMPARISON: [facility], CR, CHEST 1VW (PORTABLE), 03/12/2013, 9:13. [facility], CT, CT CHEST WO CON, 03/01/2016, 14:19. FINDINGS: Surgical changes and devices: None. Lungs and pleura: No pleural effusions or pneumothorax. Lungs are clear. Mediastinum: Mediastinal contours appear normal. Heart size is normal. Bones and chest wall: No suspicious bony lesions. Overlying soft tissues appear unremarkable. Bone island redemonstrated within the left fifth posterior rib. IMPRESSION: No acute cardiopulmonary disease. Dictated by: Robert Pardo RR Interpreted: Svetlana gNo MD on 12/26/2016 at 8:56 Transcribed by: ISIS on 12/26/2016 at 8:56 Approved by: Svetlana Ngo MD, PhD on 12/26/2016 at 16:30 PROCEDURE: CT ANGIO CHEST PULMONARY EMBOLISM ([id number]) INDICATIONS: Hypoxia with normal CXR TECHNIQUE: After the administration of intravenous contrast, 2 mm thick sections acquired from the pulmonary apices to the posterior costophrenic angles. 3-dimensional maximum intensity projection (MIP) coronal and sagittal reformats were then acquired through the thorax. For radiation dose reduction, the following was used: automated exposure control, adjustment of mA and/or kV according to patient size. COMPARISON: [facility], CT, CT CHEST WO CON, 03/01/2016, 14:19. FINDINGS: Image quality: Excellent. Pulmonary arteries: Pulmonary arteries are normal in size, and demonstrate no intraluminal filling defects to suggest central pulmonary embolism. Lungs and pleura: No evidence of pneumonia, nor edema. Multiple subpleural nodules within the right upper lobe, right posterior lung base, and left upper lobe, are unchanged. No pleural effusions or pneumothorax. Central and peripheral airways are patent. Mediastinum: Heart size is normal, without pericardial effusion. There is calcification of the coronary vasculature. No mediastinal or hilar adenopathy. Thoracic aorta is normal in caliber and enhancement. Esophagus is normal in caliber, without hiatal hernia. Bones and chest wall: No suspicious bony lesions. Ribs and thoracic spine appear intact throughout. Thyroid gland is within normal limits. No axillary or supraclavicular adenopathy. Abdomen: Visualized portions of the upper abdomen demonstrate no change in the peripherally calcified low-density focus in the right hepatic dome laterally, and no change in the low-density focus within the medial segment left hepatic lobe measuring roughly 20 mm. There is a 16 mm diameter low-density left adrenal nodule, which demonstrates canceled units of -1.2, consistent with an adenoma, which appears to be new since the prior examination. IMPRESSION: 1. No acute process. No pulmonary embolus. 2. No change in small bilateral pulmonary nodules. 3. Cardiomegaly and coronary artery disease. 4. Left adrenal adenoma. Dictated by: Esperanza Self M.D. on 12/26/2016 at 12:22 Approved by: Esperanza Self M.D. on 12/26/2016 at 12:27 Cardiac Echo Impressions Echocardiogram Report Name: CARRINGTON MARMOLEJO VStudy Date : 12/27/2016 Height: 71 in Hospital Exam Location: [facility] Weight: 215 lb Gender: Male BSA: 2. 2 m2 : 1940 Age: 76 yrs BP: 128 /63 mmHg Reason For Study: Hypoxia Ordering Physician: HOSPITALIST [facility] Performed By: Miley Collier Referring Physician: Dr Jane Morales Interpretation Summary The left ventricle is grossly normal size. The ejection fraction is estimated to be 60-65%. There are no obvious focal wall motion abnormalities noted but poor endocardial definition reduces the sensitivity for the detection of such. The right ventricle is normal in size and function. The right ventricular systolic pressure is estimated at 27 mmHg assuming a right atrial pressure of 8 mm Hg. The left atrium is mildly dilated. The right atrium is mild to moderately dilated. There is no clear cut evidence for valvular heart disease. The aortic root is mildly dilated. The ascending aorta is mildly enlarged. Assessment & Plan Patient is a 76-year-old white male with history of COPD and hypertension who recently started smoking again approximately half a pack a day for the past 3 or 4 weeks and reports associated respiratory symptoms. Over the past 4 days he has increased his cigarette consumption. This morning when he went outside to smoke he felt dramatically worse with increased shortness of breath and he went back inside and lacks a door and called EMS services. Patient was seen by EMS services was given a DuoNeb treatment in route to the hospital. Patient was brought to [facility] emergency room where he was evaluated by Dr. Timmy Pozo. Dr. Pozo did a CBC which showed a white blood cell count of 19,300.. Patient had a chest x-ray which showed no acute disease. However due to the elevated white blood cell count and acute on chronic respiratory failure patient was presumed to have pneumonia or acute exacerbation of chronic bronchitis with exacerbation of COPD with acute and chronic respiratory failure and patient was admitted to the hospital service for further evaluation and treatment recommendations. # Acute on chronic respiratory failure with hypoxia - Likely due to AECB (known as acute exacerbation of chronic bronchitis) - We will continue SVN treatments with DuoNeb and albuterol. - We will continue with IV Solu-Medrol, scheduled basis. 125 mg were given in the emergency room. We will continue Cymetra 40 mg IV every 8 hours and continue to wean as tolerated. - We will continue with Rocephin and azithromycin given in the emergency room. -We will check blood cultures which are pending - We will order sputum cultures which are pending. - We have checked a respiratory pathogen panel by PCR and this was negative. - We will check a strep pneumonia and urinary antigen and Legionella urinary antigen. - We will continue montelukast # Leukocytosis - History of been secondary to acute exacerbation of chronic bronchitis - White blood cell count is improving and current IV antibiotics - Continue IV Rocephin and azithromycin for 1 more day and then switch to by mouth medications. # Frequent PVCs with occasional bigeminy - Continue to monitor and correct electrolytes as needed - She likely needs cardiology follow-up as an outpatient. # Hypertension - We will continue patient's home medications of atenolol - We will continue to monitor closely # Anxiety leading to recent recurrent tobacco use - Patient counseled on ways to alleviate his anxiety. - The patient was encouraged to quit smoking. - The patient now appears motivated to quit smoking. # Multiple subpleural nodules within the right upper lobe, right posterior lung base, and left upper lobe - These are reported to be unchanged compared to previous CT scan done in February 2016.. - We will check cocci serology and cryptococcal serology. # Disposition: We will continue IV and about except for 1 more day and then likely discharge patient home on oral antibiotics tomorrow.. Pain Evaluation: Adequate Pain Control GI Prophylaxis: Proton Pump Inhibitor VTE Prophylaxis: Sub-Q Enoxaparin VTE Mechanical Devices: Venous Foot Pump Resuscitation Status: CPR: Attempt Resuscitation Max Burton MD Dec 28, 2016 22:28
[2016-12-29] VITALS (9 sets, daily range): BP systolic 111–132; BP diastolic 56–72; PULSE 56–94; RESP 16–20; O2SAT 72–98
[2016-12-29] MEDS: MethylprednisoLONE Sodium Succinate 40 mg/mL Inj IVPUSH SCH ×2 (00:02→09:33)
[2016-12-29] MEDS: Albuterol-Ipratropium 3 mL Inhalation Solution NEB SCH ×3 (00:18→12:07)
--- NOTE | 2016-12-29 03:25 | NUR ---
Heart Rate Sinus Santhosh 42-45 bpm during night with periodic non-sustained vtach >90 bpm lasting a few seconds.
[2016-12-29 07:16] LABS: BASOPHILS % (AUTO) 0.1 % (0-3); EOSINOPHILS % (AUTO) 0 % (0-5); MONOCYTES % (AUTO) 3.7 % (4-12); Mean Corpuscular Hemoglobin 29.4 pg (27.0-35.0); Mean Corpuscular Volume 88.7 fL (81-100); NEUTROPHILS % (AUTO) 86.2 % (40-74); Platelet Count 218 bil/L (150-400)
[2016-12-29 07:42] LABS: Magnesium 2.2 mg/dL (1.6-2.6)
[2016-12-29] MEDS: Pantoprazole 20 mg ER24 Tablet PO SCH (09:32)
[2016-12-29] MEDS: cefTRIAXone Inj 2,000 MG in Dextrose 5% Minibag Plus 50 ML IV SCH (09:32)
[2016-12-29] MEDS: Azithromycin Inj 500 MG in Dextrose 5% w/Vial Mate 250 ML IV SCH (10:34)
--- NOTE | 2016-12-29 15:13 | NUR ---
Social Work: Discharge Data: Pt is a 76 y/o male admitted for CAP, COPD exacerbation. Day 3 of hospitalization. D/C orders are in. EMR reviewed. No d/c needs. [employer] OPERATOR will continue to follow if needs arise. Assessment: Pt who is independent at baseline. Plan: Pt will d/c home via POV today. No d/c needs. TOW MOTOR OPERATOR will continue to follow if needs arise. MIRNA Richards
--- NOTE | 2016-12-29 15:18 | PCM.DIMED ---
Discharge Instructions Date of Service Dec 29, 2016 Dates of Hospitalization Dec 26, 2016 at 07:56 Discharge Diagnosis Discharge Diagnosis Acute Exacerbation of Chronic Broncitis with Acute on Chronic Respiratory Failure Diet Heart Healthy Activity No restrictions (Patient may return to usual activities gradually as tolerated) Call your provider Fever or Chills, Shortness of breath, Bleeding, Chest pain, Vomitting, Excessive diarrhea, Weakness (unilateral), Other Patient Instructions Follow-up Provider: Jane Morales MD Follow-up with PCP in: 1 week Max Burton MD Dec 29, 2016 15:18
[2016-12-29] MEDS ORDERED: CEFD300C3 PO (15:21)
[2016-12-29] MEDS ORDERED: AZIT250T4 PO (15:21)
[2016-12-29] MEDS ORDERED: NICO1PAT16 TRANSDERM (15:55)
--- NOTE | 2016-12-29 16:12 | NUR ---
Discharge Reviewed d/c instructions with pt in room including new prescriptions and care notes, pt signed and given original, copies to chart. IV d/c intact, tele removed. VS stable at d/c. All belongings packed by pt in room and taken with them. Pt taken off unit via WC by [employer] to bus pick up man, pt will take bus which drops off right at his house
--- NOTE | 2016-12-30 00:50 | PCM.DC.MED ---
Discharge Summary Date of Service Dec 29, 2016 Dates of Hospitalization Date of Hospital Admission Dec 26, 2016 at 07:56 Date of Discharge: Dec 29, 2016 Providers: Admitting Physician: Max Burton MD Primary Care Physician: Jane Morales MD Attending Physician: Max Burton MD Diagnosis at Time of Discharge Diagnosis at Time of Discharge Acute Exacerbation of Chronic Broncitis with Acute on Chronic Respiratory Failure Procedures XRay, CTs & MRIs PROCEDURE: X-RAY CHEST ONE VIEW, PORTABLE ([id number]) INDICATIONS: sob TECHNIQUE: One view of the chest was acquired. COMPARISON: [facility], CR, CHEST 1VW (PORTABLE), 03/12/2013, 9:13. [facility], CT, CT CHEST WO CON, 03/01/2016, 14:19. FINDINGS: Surgical changes and devices: None. Lungs and pleura: No pleural effusions or pneumothorax. Lungs are clear. Mediastinum: Mediastinal contours appear normal. Heart size is normal. Bones and chest wall: No suspicious bony lesions. Overlying soft tissues appear unremarkable. Bone island redemonstrated within the left fifth posterior rib. IMPRESSION: No acute cardiopulmonary disease. Dictated by: Robert Pardo RRA Interpreted: Svetlana Ngo MD on 12/26/2016 at 8:56 Transcribed by: ISIS on 12/26/2016 at 8:56 Approved by: Svetlana Ngo MD, PhD on 12/26/2016 at 16:30 PROCEDURE: CT ANGIO CHEST PULMONARY EMBOLISM ([id number]) INDICATIONS: Hypoxia with normal CXR TECHNIQUE: After the administration of intravenous contrast, 2 mm thick sections acquired from the pulmonary apices to the posterior costophrenic angles. 3-dimensional maximum intensity projection (MIP) coronal and sagittal reformats were then acquired through the thorax. For radiation dose reduction, the following was used: automated exposure control, adjustment of mA and/or kV according to patient size. COMPARISON: [facility], CT, CT CHEST WO CON, 03/01/2016, 14:19. FINDINGS: Image quality: Excellent. Pulmonary arteries: Pulmonary arteries are normal in size, and demonstrate no intraluminal filling defects to suggest central pulmonary embolism. Lungs and pleura: No evidence of pneumonia, nor edema. Multiple subpleural nodules within the right upper lobe, right posterior lung base, and left upper lobe, are unchanged. No pleural effusions or pneumothorax. Central and peripheral airways are patent. Mediastinum: Heart size is normal, without pericardial effusion. There is calcification of the coronary vasculature. No mediastinal or hilar adenopathy. Thoracic aorta is normal in caliber and enhancement. Esophagus is normal in caliber, without hiatal hernia. Bones and chest wall: No suspicious bony lesions. Ribs and thoracic spine appear intact throughout. Thyroid gland is within normal limits. No axillary or supraclavicular adenopathy. Abdomen: Visualized portions of the upper abdomen demonstrate no change in the peripherally calcified low-density focus in the right hepatic dome laterally, and no change in the low-density focus within the medial segment left hepatic lobe measuring roughly 20 mm. There is a 16 mm diameter low-density left adrenal nodule, which demonstrates canceled units of -1.2, consistent with an adenoma, which appears to be new since the prior examination. IMPRESSION: 1. No acute process. No pulmonary embolus. 2. No change in small bilateral pulmonary nodules. 3. Cardiomegaly and coronary artery disease. 4. Left adrenal adenoma. Dictated by: Esperanza Self M.D. on 12/26/2016 at 12:22 Approved by: Esperanza Self M.D. on 12/26/2016 at 12:27 Cardiac Echo Impression Echocardiogram Report Name: CARRINGTON MARMOLEJO VStudy Date : 12/27/2016 Height: 71 in Hospital Exam Location: [facility] Weight: 215 lb Gender: Male BSA: 2. 2 m2 : 1940 Age: 76 yrs BP: 128 /63 mmHg Reason For Study: Hypoxia Ordering Physician: HOSPITALIST [facility] Performed By: Miley Collier Referring Physician: Dr Jane Morales Interpretation Summary The left ventricle is grossly normal size. The ejection fraction is estimated to be 60-65%. There are no obvious focal wall motion abnormalities noted but poor endocardial definition reduces the sensitivity for the detection of such. The right ventricle is normal in size and function. The right ventricular systolic pressure is estimated at 27 mmHg assuming a right atrial pressure of 8 mm Hg. The left atrium is mildly dilated. The right atrium is mild to moderately dilated. There is no clear cut evidence for valvular heart disease. The aortic root is mildly dilated. The ascending aorta is mildly enlarged. Brief History Patient is a 76-year-old white male with history of COPD and hypertension who recently started smoking again approximately half a pack a day for the past 3 or 4 weeks and reports associated respiratory symptoms. Over the past 4 days he has increased his cigarette consumption. This morning when he went outside to smoke he felt dramatically worse with increased shortness of breath and he went back inside and lacks a door and called EMS services. Patient was seen by EMS services was given a DuoNeb treatment in route to the hospital. Patient was brought to [facility] emergency room where he was evaluated by Dr. Timmy Pozo. Dr. Pozo did a CBC which showed a white blood cell count of 19,300.. Patient had a chest x-ray which showed no acute disease. However, due to the elevated white blood cell count and acute on chronic respiratory failure patient was presumed to have pneumonia or acute exacerbation of chronic bronchitis with exacerbation of COPD with acute and chronic respiratory failure. Therefore, patient was admitted to the hospitalist service for further evaluation and treatment recommendations. Hospital Course Patient is a 76-year-old white male with history of COPD and hypertension who recently started smoking again approximately half a pack a day for the past 3 or 4 weeks and reports associated respiratory symptoms. Over the past 4 days he has increased his cigarette consumption. This morning when he went outside to smoke he felt dramatically worse with increased shortness of breath and he went back inside and lacks a door and called EMS services. Patient was seen by EMS services was given a DuoNeb treatment in route to the hospital. Patient was brought to [facility] emergency room where he was evaluated by Dr. Timmy Pozo. Dr. Pozo did a CBC which showed a white blood cell count of 19,300.. Patient had a chest x-ray which showed no acute disease. However, due to the elevated white blood cell count and acute on chronic respiratory failure patient was presumed to have pneumonia or acute exacerbation of chronic bronchitis with exacerbation of COPD with acute and chronic respiratory failure. Therefore, patient was admitted to the hospitalist service for further evaluation and treatment recommendations. # Acute on chronic respiratory failure with hypoxia - Likely due to AECB (known as acute exacerbation of chronic bronchitis) - We will continue SVN treatments with DuoNeb and albuterol. - We will continue with IV Solu-Medrol, scheduled basis. 125 mg were given in the emergency room. We will continue Cymetra 40 mg IV every 8 hours and continue to wean as tolerated. - We will continue with Rocephin and azithromycin given in the emergency room. -We will check blood cultures which are pending - We will order sputum cultures which are pending. - We have checked a respiratory pathogen panel by PCR and this was negative. - We will check a strep pneumonia and urinary antigen and Legionella urinary antigen. - We will continue montelukast # Leukocytosis - History of been secondary to acute exacerbation of chronic bronchitis - White blood cell count is improving and current IV antibiotics - Continue IV Rocephin and azithromycin for 1 more day and then switch to by mouth medications. # Frequent PVCs with occasional bigeminy - Continue to monitor and correct electrolytes as needed - She likely needs cardiology follow-up as an outpatient. # Hypertension - We will continue patient's home medications of atenolol - We will continue to monitor closely # Anxiety leading to recent recurrent tobacco use - Patient counseled on ways to alleviate his anxiety. - The patient was encouraged to quit smoking. - The patient now appears motivated to quit smoking. # Multiple subpleural nodules within the right upper lobe, right posterior lung base, and left upper lobe - These are reported to be unchanged compared to previous CT scan done in February 2016.. - We will check cocci serology and cryptococcal serology. # Disposition: We will continue IV and about except for 1 more day and then likely discharge patient home on oral antibiotics tomorrow.. Exam Vital Signs (Last) Date Time Temp Pulse Resp B/P Pulse Ox O2 Delivery O2 Flow Rate FiO2 12/29/16 13:16 36.7 76 18 117/68 93 Room Air 12/27/16 09:35 2.00 Exam General: Patient is laying on his right side in bed in no apparent distress. HEENT: Head is atraumatic and normocephalic. Eyes: Pupils are equally round and reactive to light and accommodation. Extraocular muscles are intact. Sclera are white, anicteric. Subconjunctival mucosa is pink. Ears and nose are unremarkable. Oropharynx: There is no mucosal lesions, there is no thrush, there is no pharyngitis. Neck: Is supple, there are no nodes, or masses or tenderness. Chest: Is significant for much clearer breath sounds today. There are no rubs or rhonchi noted. Heart: Rate, rhythm is regular. There are a few irregular beats here and there There is no murmur, rub or gallop. Abdomen: Good bowel sounds are present. Abdomen is soft, nontender, no organomegaly or masses were appreciated. Extremities: Are symmetrical and well perfused. There is no edema, there is no cellulitis, no rash. Neurologic: There are no focal neurological deficits. Cranial nerves II through XII are intact. There are no sensory or motor deficits. Patient's strength appears improved. Psychiatric: Patients mood is calm and shows no sign of agitation. Genital: Deferred Rectal: Deferred Test 12/26/16 05:22 12/26/16 05:55 12/26/16 09:18 12/26/16 23:31 Troponin T 0.010ug/L (0.0-0.011) Pro-B-Type Natriuretic Peptide 161.2pg/mL (0-486) Procalcitonin 0.06ng/mL (0.00-0.08) Thyroid Stimulating Hormone (TSH) 1.450uIU/mL (0.450-4.500) Lactic Acid Level 1.2mmol/L (0.4-2.0) Hold Nguyen Top Tube Received (Received) Urine Color Straw (YELLOW) Urine Appearance Hazy (CLEAR,HAZY) Urine pH 6.0 (5.0-8.0) Urine Specific [place] 1.005 (1.003-1.035) Urine Protein Negativemg/dL (NEG,TRACE) Urine Glucose (UA) Negativemg/dL (NEGATIVE) Urine Ketones Negativemg/dL (NEGATIVE) Urine Occult Blood Trace (NEGATIVE) Urine Nitrite Negative (NEGATIVE) Urine Bilirubin Negative (NEGATIVE) Urine Urobilinogen Normalmg/dL (NORMAL) Urine Leukocyte Esterase Negative (NEGATIVE) Urine RBC 0-2/hpf (0-2) Urine WBC 0-5/hpf (0-5) Urine Epithelial Cells Occasional/hpf (NONE-MOD) Urine Crystals None seen (NONE SEEN) Urine Bacteria None/hpf (NONE-FEW) Urine Hyaline Casts None/lpf (NONE) Urine Granular Casts None seen (NONE SEEN) Urine Waxy Casts None seen (NONE SEEN) Urine Red Blood Cell Casts None seen (NONE SEEN) Urine White Blood Cell Casts None seen (NONE SEEN) Urine Mucus None seen (None Seen) Urine Trichomonas None seen (NONE SEEN) Urine Yeast None (NONE SEEN) Urinalysis Comment None Urine Culture Reflexed Not indicated Urine Legionella pneumophilia Ag Negative (Negative) Test 12/27/16 06:15 12/29/16 07:00 Phosphorus Level 3.0mg/dL (2.5-4.9) White Blood Count 10.3th/mm3 (3.8-10.1) Red Blood Count 5.23mil/mm3 (4.40-5.80) Hemoglobin 15.4g/dL (13.8-17.2) Hematocrit 46.4% (41.0-50.0) Mean Corpuscular Volume 88.7fL (81-100) Mean Corpuscular Hemoglobin 29.4pg (27.0-35.0) Mean Corpuscular Hemoglobin Concent 33.2% (32.0-37.0) Red Cell Distribution Width 14.2% (12.3-15.4) Platelet Count 218bil/L (150-400) Neutrophils (%) (Auto) 86.2% (40-74) Lymphocytes (%) (Auto) 8.9% (14-46) Monocytes (%) (Auto) 3.7% (4-12) Eosinophils (%) (Auto) 0% (0-5) Basophils (%) (Auto) 0.1% (0-3) Sodium Level 139mEq/L (134-144) Potassium Level 4.6mEq/L (3.5-5.2) Chloride Level 102mEq/L (97-108) Carbon Dioxide Level 22mmol/L (18-29) Blood Urea Nitrogen 16mg/dL (8-27) Creatinine 0.72mg/dL (0.76-1.27) Estimat Glomerular Filtration Rate 113mL/min (>59) Glucose Level 134mg/dL (60-99) Calcium Level 9.6mg/dL (8.5-10.1) Magnesium Level 2.2mg/dL (1.6-2.6) Total Bilirubin 0.2mg/dL (0.0-1.2) Aspartate Amino Transf (AST/SGOT) 13U/L (0-50) Alanine Aminotransferase (ALT/SGPT) 22U/L (0-44) Alkaline Phosphatase 86U/L (25-160) Total Protein 6.4g/dL (6.4-8.4) Albumin 4.1g/dL (3.4-5.0) Microbiology Results Name: CARRINGTON MARMOLEJO Jason Age/Sex: 76/M Attend Dr: Max Burton Acct: [id number] Unit: [id number] Status: ADM [place] [facility] [place] Re12/26/16 Disch: Specimen: [id number] Collected: 12/26/16 Status: RES Req#: [id number] Received: 12/27/16 Source: SPUTUM EXP Sp Desc : Subm Dr: Max Burton MD Ordered: GRAM SPT REFLEX, SPUTUM CULTURE Comments: Collected by Nurse/Unit? Y/N Y Procedure Result Verified Site Microbiology [place] CULT SPUTUM GS Final 12/27/16-1002 SPT GRAM STAIN RARE EPITHELIAL CELLS RARE MIXED NORMAL OSWALDO NO POLYS SEEN This Spec is of good Quality and acceptable for Cult RESPIRATORY CULTURE Preliminary 12/28/16-840 SCANT NORMAL OSWALDO PRESENT Discharge Medications Discharge Medications Atenolol (Atenolol) 25 Mg Tablet 25 MG PO DAILY (Reported) Azithromycin (Zithromax (Z-Smith)) 250 Mg Tablet 250 MG PO DIRECTED Take two tablets by mouth on day 1, then take one tablet daily on days 2 through 5. Prescribed by: MARZENA BURTON MD Cefdinir (Cefdinir) 300 Mg Capsule 300 MG PO BID Prescribed by: MARZENA BURTON MD Fexofenadine (Fexofenadine) 60 Mg Tablet 60 MG PO DAILY (Reported) Fluticasone Propionate (Flovent HFA 110 mcg) Unknown Strength Aer.w.adap Unknown Dose IH BID (Reported) Ipratropium/Albuterol Sulfate (Iprat-Albut 0.5-3(2.5) mg/3 mL Inhalant Soln) 3 Ml Ampul.neb 3 ML IH Q4H (Reported) Montelukast (Montelukast) 10 Mg Tablet 10 MG PO HS (Reported) Nicotine 21 mg/24 hr Patch (Nicotine 21 mg/24 hr Patch) 1 Each Patch.dysq 1 PATCH TRANSDERM DAILY Prescribed by: MARZENA BURTON MD Omeprazole (Omeprazole) 20 Mg Tablet.dr 20 MG PO BID (Reported) As needed Albuterol HFA (Proair HFA) 8.5 Gm Hfa.aer.ad 4 PUFFS INHALATION BID PRN PRN For Shortness of Breath (Reported) Followup Plan Disposition: Patient is being discharged home. Discharge Diet: Heart Healthy Discharge Activity: No restrictions (Patient may return to usual activities gradually as tolerated) Follow-up Provider: Jane Morales MD Follow-up with PCP in: 1 week Time spent Time spent on discharging this patient was greater than 35 minutes, over half of which was involved in counseling and coordination of care. Max Burton MD Dec 30, 2016 00:50
== END 2016-12-29 16:14 | disposition home or self-care (01) | DRG 189 ==
LOC: SED 05:09 → EDBD 05:09 → MPC 07:56
PROVIDERS: ADMIT Internal Medicine Infectious Disease; ATTEND Internal Medicine Infectious Disease
DX: J96.21 Acute and chronic respiratory failure with hypoxia (principal); J18.9 Pneumonia, unspecified organism; J44.1 Chronic obstructive pulmonary disease with (acute) exacerbation; J20.9 Acute bronchitis, unspecified; F17.210 Nicotine dependence, cigarettes, uncomplicated; I10 Essential (primary) hypertension; R91.8 Other nonspecific abnormal finding of lung field; D72.829 Elevated white blood cell count, unspecified

== ENCOUNTER 2017-02-19 07:07 | Emergency (ER) | payer MEDICARE, OTHER ==
[~2017-02-19] VITALS: Ht 180.3 cm; Wt 109.1 kg
[2017-02-19 07:07] VITALS: BP 132/97; PULSE 82; RESP 21; O2SAT 94
[~2017-02-19 07:07] MED LIST changes: +AZIT250T4 PO; -BECL8.7A6 IH; +CEFD300C3 PO; +FLUT12AE8 IH; +NICO1PAT16 TRANSDERM; -OXYC5TAB72 PO; -POLY17PO6 PO
--- NOTE | 2017-02-19 07:56 | ED.REPORT ---
HPI-NVD Date of Service February 19, 2017 ED Provider: Giuseppe Enrique DO The pt is a 76 y/o male w/ a hx of COPD, GERD, HTN, hyperlipidemia, and a cholecystectomy presenting to the ED via EMS complaining of diarrhea onset 2 days ago. He reports having 20 bowel movements a day with lightly colored fluid. Imodium provided no relief. He also had one episode of vomiting earlier this morning due to motion sickness from the ambulance for which he received 80 mg of Zofran. He denies any pain or fever. He was hospitalized for pneumonia on 12/26/16 and discharged on 12/29/16. Nursing Notes Stated Complaint: DIARRHEA Chief Complaint: Male Abdominal Pain Nursing Notes Reviewed: Yes Allergies: Coded Allergies: Penicillins (Verified Allergy, Severe, Skin rash, 02/19/17) Scheduled Atenolol (Atenolol) 25 Mg Tablet 25 MG PO DAILY Azithromycin (Zithromax (Z-Smith)) 250 Mg Tablet 250 MG PO DIRECTED Take two tablets by mouth on day 1, then take one tablet daily on days 2 through 5. Cefdinir (Cefdinir) 300 Mg Capsule 300 MG PO BID Fexofenadine (Fexofenadine) 60 Mg Tablet 60 MG PO DAILY Fluticasone Propionate (Flovent HFA 110 mcg) Unknown Strength Aer.w.adap Unknown Dose IH BID Ipratropium/Albuterol Sulfate (Iprat-Albut 0.5-3(2.5) mg/3 mL Inhalant Soln) 3 Ml Ampul.neb 3 ML IH Q4H Montelukast (Montelukast) 10 Mg Tablet 10 MG PO HS Nicotine 21 mg/24 hr Patch (Nicotine 21 mg/24 hr Patch) 1 Each Patch.dysq 1 PATCH TRANSDERM DAILY Omeprazole (Omeprazole) 20 Mg Tablet.dr 20 MG PO BID Scheduled PRN Albuterol HFA (Proair HFA) 8.5 Gm Hfa.aer.ad 4 PUFFS INHALATION BID PRN PRN For Shortness of Breath Diphenoxylate/Atropine 2.5-0.025 mg (Lomotil 2.5-0.025 mg) 1 Each Tablet 1 TABLET PO DIRECTED PRN PRN For Diarrhea or Loose Stool 1-2 tabs every 6hrs, hold if constipated General Time Seen by MD: 07:55 Chief Complaint Diarrhea Hx Obtained From: Patient Arrived By: Ambulance Onset Occurred: 2 days ago Symptom Duration: Since onset Recent Healthcare: Recent doctor visit, Recent hospitalization Past Medical History Past Medical History RA Sleep apnea History of pancreatitis Denies history of CA Reports: COPD, GERD, Hyperlipidemia, Hypertension Past Surgical History Right great toe arthroplasty Right knee repair Reports: Appendectomy, Cholecystectomy Smoking History Current Every Day Smoker Ambulatory Status Independent Review of Systems Constitutional: Denies: Fever GI: Reports: Diarrhea, Nausea, Vomiting, Denies: Abdominal pain Complete sys rev & neg: except as marked. Cardiovascular: Denies: Chest pain Musculoskeletal: Denies: Back pain, Extremity pain Physical Exam Initial Vital Signs Vital Signs (First) Date Time Temp Pulse Resp B/P Pulse Ox O2 Delivery O2 Flow Rate FiO2 02/19/17 07:07 35.8 82 21 132/97 94 Room Air Initial VS: Reviewed General/Constitutional: Awake, Alert Distress / Hydration: Positive: Dehydration mild Abdomen: Atraumatic, Soft, Non-tender ENT: Airway patent Mouth: Positive: Mucous membranes dry Respiratory / Chest: Atraumatic, Breath sounds = bilat, No rhonchi, No wheezing Rales / Rhonchi: Positive: Rales diffuse (Faint ) Cardiovascular: Heart rate NL, Regular rhythm, Heart sounds NL Back: Atraumatic, Full range of motion Skin: Atraumatic, Color NL, No rash, Warm, Dry Neurologic: Oriented X3, Speech NL Head / Eyes: Atraumatic, Normocephalic Neck: Atraumatic, Full range of motion Psychiatric: Affect NL, Mood NL Interpretation & Diagnostics Lab Results Interpretation Result Diagram: 02/19/17 0840 02/19/17 0840 Test 02/19/17 08:40 White Blood Count 14.9th/mm3 (3.8-10.1) Red Blood Count 5.76mil/mm3 (4.40-5.80) Hemoglobin 16.8g/dL (13.8-17.2) Hematocrit 50.1% (41.0-50.0) Mean Corpuscular Volume 87.0fL (81-100) Mean Corpuscular Hemoglobin 29.2pg (27.0-35.0) Mean Corpuscular Hemoglobin Concent 33.5% (32.0-37.0) Red Cell Distribution Width 14.5% (12.3-15.4) Platelet Count 247bil/L (150-400) Neutrophils (%) (Auto) 87.6% (40-74) Lymphocytes (%) (Auto) 5.3% (14-46) Monocytes (%) (Auto) 5.4% (4-12) Eosinophils (%) (Auto) 1.0% (0-5) Basophils (%) (Auto) 0.3% (0-3) Sodium Level 138mEq/L (134-144) Potassium Level 3.8mEq/L (3.5-5.2) Chloride Level 103mEq/L (97-108) Carbon Dioxide Level 18mmol/L (18-29) Blood Urea Nitrogen 20mg/dL (8-27) Creatinine 0.86mg/dL (0.76-1.27) Estimat Glomerular Filtration Rate 92mL/min (>59) Glucose Level 140mg/dL (60-99) Calcium Level 10.0mg/dL (8.5-10.1) Magnesium Level 1.7mg/dL (1.6-2.6) Total Bilirubin 0.5mg/dL (0.0-1.2) Aspartate Amino Transf (AST/SGOT) 23U/L (0-50) Alanine Aminotransferase (ALT/SGPT) 33U/L (0-44) Alkaline Phosphatase 137U/L (25-160) Total Protein 7.4g/dL (6.4-8.4) Albumin 4.7g/dL (3.4-5.0) Lipase 12U/L (13-60) Hold Nguyen Top Tube Received (Received) CT Abd / Pelvis Interpretation IMPRESSION: 1. Fluid distention of the small and large bowel without a focal transition point. Findings likely represent an ileus and possible gastroenteritis. 2. Pneumobilia redemonstrated in the left hepatic lobe likely related to prior surgery or other intervention. Dictated by: Colt Childers M.D. on 02/19/2017 at 12:07 Approved by: Colt Childers M.D. on 02/19/2017 at 12:15 Study type: Abdom CT oral contrast Interpretation / Wet Read by: Interpret - Radiologist Re-Eval/Medical Decision Med Decision/Clinical Course No obvious infectious cause for diarrhea, CT shows gastroenteritis without ileus or obstruction given the general absence of vomiting. Will treat with antidiarrheals and recommend strict return and follow-up precautions. Source of Hx: Old records Re-Evaluation/Progress #1: Time of Eval: 09:35 Re-Evaluation/Progress Note: Pt rechecked. Stool sample is negative. Will examine CT. Re-Evaluation/Progress #2: Time of Eval: 12:41 Re-Evaluation/Progress Note: Pt rechecked. Informed pt of plan for treatment. Pt understands and agrees with plan for treatment. F/U instructions and RTER warnings given. All questions addressed. Counseled Regarding: Diagnosis, Lab results Discharge & Departure Impression: Primary Impression: Diarrhea Diarrhea type: unspecified type Qualified Code: R19.7 - Diarrhea, unspecified Disposition: Home Discharge Condition All VS Reviewed: Yes Condition: Stable Additional Instructions: Overall your labs are reassuring. Use Lomotil to help with your diarrhea. Stay hydrated. Call your regular doctor in the morning for close follow-up. Return to the ER as needed for worsening symptoms. Referrals: Jane Morales MD (PCP) Scribe Attestation Portions of this note were transcribed by Drew Key and Saman Jones. I, Dr. Brian Leavitt personally performed the history, physical exam and medical decision- making; I reviewed and confirmed the accuracy of the information in the transcribed note. Signed by: Drew Key and Leslie Hardy, 02/19/17 and 1135. copies to: Jane Morales MD, Timmildred Hernandez February 19, 2017 07:56 Drew Key February 19, 2017 11:25 SAMAN JONES February 19, 2017 11:45
[2017-02-19] MEDS ORDERED: 0.9% Sodium Chloride 1,000 ML IV ONE (08:09)
[2017-02-19] MEDS: Ondansetron 2 mg/mL 2 mL Inj IVPUSH PRN ×2 (08:40→12:35)
[2017-02-19 08:50] LABS: BASOPHILS % (AUTO) 0.3 % (0-3); MONOCYTES % (AUTO) 5.4 % (4-12); Mean Corpuscular Hemoglobin 29.2 pg (27.0-35.0); NEUTROPHILS % (AUTO) 87.6 % (40-74); Platelet Count 247 bil/L (150-400)
[2017-02-19 09:15] LABS: Magnesium 1.7 mg/dL (1.6-2.6)
[2017-02-19 09:43] VITALS: BP 125/95; PULSE 106; RESP 12; O2SAT 92
[2017-02-19] MEDS ORDERED: Albuterol-Ipratropium 3 mL Inhalation Solution NEB ONE (10:45)
[2017-02-19 10:57] VITALS: PULSE 106; RESP 22; O2SAT 93
--- NOTE | 2017-02-19 12:22 | DRSVH ---
PROCEDURE: CT ABDOMEN AND PELVIS WITH CONTRAST ([id number]) INDICATIONS: leukocytosis, abdominal pain, diarrhea TECHNIQUE: After the administration of oral and intravenous contrast, 5 mm thick sections acquired from the diap hragms to the symphysis. 5 mm thick coronal and sagittal reformats were performed. For radiation do se reduction, the following was used: automated exposure control, adjustment of mA and/or kV accordi ng to patient size. COMPARISON: [facility], CT, ABD/PELVIS W/CON (PN), 10/19/2012, 9:58. FINDINGS: Image quality: Excellent. ABDOMEN: Lung bases: There is a stable small 3 mm nodule in the right lower lobe. Mild linear scarring is als o demonstrated in the right lower lobe. Heart size is normal. There is coronary arterial vascular c alcification. A small hiatal hernia is present with a small amount of fluid in the visualized distal esophagus. Solid organs: There is a small cyst is redemonstrated in the liver as well as a peripherally calcifie d lesion in the right hepatic dome which appears stable. A small amount of pneumobilia is again note d in the left hepatic lobe. Gallbladder is surgically absent. There is mild biliary ductal dilatati on likely reflecting postsurgical change. The spleen is normal in size. Pancreas enhances normally. There is a stable small right adrenal nodule measuring 9 mm. Kidneys demonstrate no hydronephrosis . Peritoneum and bowel: There is prominent fluid distention of the stomach and proximal duodenum as wel l small fluid distention throughout the small bowel except for a nondistended segment in the terminal ileum. There is also mild fluid distention in the ascending and proximal transverse colon with nond istention of the distal colon. There are scattered air-fluid levels. No localized wall thickening. The appendix is normal in appearance. There is colonic diverticulosis. No free fluid or air. Nodes and vessels: No retroperitoneal or mesenteric adenopathy. Aorta and inferior vena cava are no rmal in caliber. Miscellaneous: No ventral hernias. PELVIS: Genitourinary: Bladder wall thickness is normal. Miscellaneous: No inguinal hernias or adenopathy. Bones: No suspicious bony lesions. No vertebral body compression fractures. IMPRESSION: 1. Fluid distention of the small and large bowel without a focal transition point. Findings likely represent an ileus and possible gastroenteritis. 2. Pneumobilia redemonstrated in the left hepatic lobe likely related to prior surgery or other inte rvention. Dictated by: Colt Childers M.D. on 02/19/2017 at 12:07 Approved by: Colt Childers M.D. on 02/19/2017 at 12:15
[2017-02-19 12:25] VITALS: BP 109/60; PULSE 104; RESP 16; O2SAT 94
[2017-02-19] MEDS ORDERED: DIPH1TAB PO (12:44)
== END 2017-02-19 13:28 | disposition home or self-care (01) ==
LOC: SED 07:07
DX: R19.7 Diarrhea, unspecified (principal); I10 Essential (primary) hypertension; J44.9 Chronic obstructive pulmonary disease, unspecified; K21.9 Gastro-esophageal reflux disease without esophagitis; M06.9 Rheumatoid arthritis, unspecified; E78.5 Hyperlipidemia, unspecified; F17.200 Nicotine dependence, unspecified, uncomplicated; Z88.0 Allergy status to penicillin
CPT/HCPCS: 36415; 74177; 80053; 83690; 83735; 85025; 87507; 94664; 96374; 96376; 99285; J2405; J7030; J7620; Q9967

== ENCOUNTER 2017-03-07 12:15 | Inpatient (IN) | payer MEDICARE, OTHER ==
[~2017-03-07] VITALS: Ht 180.3 cm; Wt 102.3 kg
[2017-03-07] VITALS (11 sets, daily range): BP systolic 113–144; BP diastolic 74–93; PULSE 90–114; RESP 18–28; O2SAT 91–97
[~2017-03-07 12:15] MED LIST changes: +DIPH1TAB PO; +Vancomycin Dose per Pharmacist XX ONE
--- NOTE | 2017-03-07 12:23 | ED.REPORT ---
HPI-General Illness Date of Service March 07, 2017 ED Provider: Giuseppe Enrique DO Patient is a 76 year old male with a history of COPD and hypertension who presents to the ED via EMS due to weakness. Associated symptoms include fatigue , vomiting and diarrhea. The patient has had 3 episodes of diarrhea a day continued from the last time he was seen in the ED on 02/19/17 for diarrhea. He reports he has 1 episode of vomiting a day. When asked if he is having difficulty breathing, he responds that "it's time for a breathing treatment". He denies abdominal pain, numbness or chest pain. Patient was found slumped over the table by a friend and reports that he was too weak to hold himself up. The patient states that he followed up with his primary care doctor after being discharged from the ED and doesn't think he has a new pneumonia. Patient was also recently hospitalized on 12/26/16 for pneumonia. Nursing Notes Stated Complaint: WEAKNESS Nursing Notes Reviewed: Yes Allergies: Coded Allergies: Penicillins (Verified Allergy, Severe, Skin rash, 02/19/17) Scheduled Atenolol (Atenolol) 25 Mg Tablet 25 MG PO DAILY Azithromycin (Zithromax (Z-Smith)) 250 Mg Tablet 250 MG PO DIRECTED Take two tablets by mouth on day 1, then take one tablet daily on days 2 through 5. Cefdinir (Cefdinir) 300 Mg Capsule 300 MG PO BID Fexofenadine (Fexofenadine) 60 Mg Tablet 60 MG PO DAILY Fluticasone Propionate (Flovent HFA 110 mcg) Unknown Strength Aer.w.adap Unknown Dose IH BID Ipratropium/Albuterol Sulfate (Iprat-Albut 0.5-3(2.5) mg/3 mL Inhalant Soln) 3 Ml Ampul.neb 3 ML IH Q4H Montelukast (Montelukast) 10 Mg Tablet 10 MG PO HS Nicotine 21 mg/24 hr Patch (Nicotine 21 mg/24 hr Patch) 1 Each Patch.dysq 1 PATCH TRANSDERM DAILY Omeprazole (Omeprazole) 20 Mg Tablet.dr 20 MG PO BID Scheduled PRN Albuterol HFA (Proair HFA) 8.5 Gm Hfa.aer.ad 4 PUFFS INHALATION BID PRN PRN For Shortness of Breath Diphenoxylate/Atropine 2.5-0.025 mg (Lomotil 2.5-0.025 mg) 1 Each Tablet 1 TABLET PO DIRECTED PRN PRN For Diarrhea or Loose Stool 1-2 tabs every 6hrs, hold if constipated General Time Seen by MD: 12:23 Chief Complaint Weakness Hx Obtained From: Patient Arrived By: Ambulance Sudden in Onset?: Yes Severity: Current: No pain currently Recent Healthcare: Recent doctor visit, Recent hospitalization Similar Sx Previous: Yes Past Medical History Past Medical History RA Sleep apnea History of pancreatitis Denies history of DE Reports: COPD, GERD, Hyperlipidemia, Hypertension Past Surgical History Right great toe arthroplasty Right knee repair Reports: Appendectomy, Cholecystectomy Smoking History Current Every Day Smoker Ambulatory Status Independent Review of Systems Full Review of Systems Constitutional: Reports: Malaise, Weakness - generalized Respiratory: Reports: Shortness of breath, Denies: Non-productive cough Cardiovascular: Denies: Chest pain GI: Reports: Diarrhea, Vomiting, Denies: Abdominal pain Neurologic: Denies: Numbness Complete sys rev & neg: except as marked. Physical Exam Vital Signs Vital Signs Date Time Temp Pulse Resp B/P Pulse Ox O2 Delivery O2 Flow Rate FiO2 03/07/17 14:45 91 18 144/83 95 Nasal Cannula 2 03/07/17 13:07 101 22 117/84 95 Nasal Cannula 2 03/07/17 13:06 106 24 94 Nasal Cannula 2 03/07/17 12:27 36.4 114 24 113/87 94 Room Air Initial VS: Reviewed General/Constitutional: Awake, Alert slow to respond Head / Eyes: Atraumatic, Normocephalic, PERRL, EOMI Respiratory / Chest: Atraumatic, No respiratory distress tachypneic Cardiovascular: Regular rhythm, Heart sounds NL Heart Rate / Rhythm: Positive: Tachycardia Abdomen: Soft, Non-tender abdomen distention Lower Extremity / Pelvis / MS: Atraumatic, Full range of motion trace lower extremity edema Skin: Atraumatic, No rash, Warm, Dry modeling on adbomen and extremities Neurologic: Oriented X3, Speech NL, No motor deficits, No sensory deficits Psychiatric: Affect NL, Mood NL Interpretation & Diagnostics Lab Results Interpretation Result Diagram: 03/07/17 1228 03/07/17 1228 Test 03/07/17 12:28 03/07/17 14:32 White Blood Count 23.4th/mm3 (3.8-10.1) Red Blood Count 6.41mil/mm3 (4.40-5.80) Hemoglobin 18.7g/dL (13.8-17.2) Hematocrit 47.8% (41.0-50.0) Mean Corpuscular Volume 74.6fL (81-100) Mean Corpuscular Hemoglobin 29.2pg (27.0-35.0) Mean Corpuscular Hemoglobin Concent 39.1% (32.0-37.0) Red Cell Distribution Width 13.6% (12.3-15.4) Platelet Count 313bil/L (150-400) Neutrophils (%) (Auto) 83% (40-74) Lymphocytes (%) (Auto) 2% (14-46) Monocytes (%) (Auto) 4% (4-12) Eosinophils (%) (Auto) 0% (0-5) Basophils (%) (Auto) 0% (0-3) Band Neutrophils % 10% (1-5) Metamyelocytes % 1% (0-0) Lactic Acid Level 3.3mmol/L (0.4-2.0) Magnesium Level 1.6mg/dL (1.6-2.6) Total Bilirubin 0.6mg/dL (0.0-1.2) Aspartate Amino Transf (AST/SGOT) 20U/L (0-50) Alanine Aminotransferase (ALT/SGPT) 31U/L (0-44) Alkaline Phosphatase 127U/L (25-160) Troponin T 0.019ug/L (0.0-0.011) Total Protein 6.6g/dL (6.4-8.4) Albumin 3.4g/dL (3.4-5.0) Lipase 4U/L (13-60) Procalcitonin 2.13ng/mL (0.00-0.08) ECG Interpretation ECG Interpretation: sinus tachycardia, rate [address] changes Time: 12:24 Interpreted by: ED physician X-Ray Chest Interpretation Chest Xray Interpretation: IMPRESSION: Source of dyspnea and weakness is not found. No pneumonia seen. Dictated by: Wilmar Kim M.D. on 03/07/2017 at 13:18 Approved by: Wilmar Kim M.D. on 03/07/2017 at 13:30 View: Portable, 1 view Interpretation / Wet Read by: Interpret - Radiologist CT Head Interpretation IMPRESSION: 1. 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 2. Mild ventricular prominence is likely related to cerebral volume loss given the associated prominence of the sulci. A component of hydrocephalus cannot be fully excluded. 3. Slight rightward midline shift by approximately 3 mm is nonspecific. No definite evidence of uncal herniation. Further evaluation may be obtained with an MRI if clinically indicated. Findings discussed with Dr. Enrique on 03/07/17 at 2:20 PM. Dictated by: Colt Childers M.D. on 03/07/2017 at 14:14 Approved by: Colt Childers M.D. on 03/07/2017 at 14:27 Interpretation / Wet Read by: Interpret - Radiologist CT Abd / Pelvis Interpretation IMPRESSION: 1. Multiple dilated loops of small and large bowel with scattered air-fluid levels but no focal transition point. The findings again likely represent an ileus or gastroenteritis. No definite evidence of obstruction. 2. Pneumobilia redemonstrated likely related to prior surgery or other intervention. 3. Hypoattenuation of the liver compatible with steatosis. 4. Mild anterior compression deformity of L1 vertebral body appears unchanged. Dictated by: Colt Childers M.D. on 03/07/2017 at 14:27 Approved by: Colt Childers M.D. on 03/07/2017 at 14:41 Interpretation / Wet Read by: Vangie w radiologist Re-Eval/Medical Decision Med Decision/Clinical Course Patient presents with altered mental status, sepsis, tachycardia, lactic acidosis, leukocytosis with bandemia, the underlying etiology seems to be a diarrheal illness. CT shows no evidence of abscess or obstruction, stool studies were obtained during the last ER visit and were unremarkable. Stool studies today are still pending. Patient has significant electrolyte abnormalities. A basic metabolic panel will be redrawn however both supplemental saline and IV potassium has been ordered while waiting for the repeat lab test. Broad-spectrum antibiotics are initiated: Meropenem, oral and IV vancomycin. A head CT was ordered initially due to initial altered mental status and unclear etiology as to the underlying cause of the patient's symptoms. There is a nonemergent finding of a colloid cyst that will need further outpatient evaluation. The patient's mental status has continued to improve as we have hydrated him. Patient will be admitted. Source of Hx: Old records Time of Eval: 14:26 Re-Evaluation/Progress Note: Discussed results and plan for admit. The patient understands and agrees to the plan for admit. All questions were addressed. Consultation #1: Referral / Consult Name: Kal Ochoa MD Consulted With: Nephrology Call Returned at: 12:13 Flight Physician: Will see patient, Agrees with eval, Agrees with plan Consultation #2: Referral / Consult Name: Lino Bucio MD Consulted With: Hospitalist Call Returned at: 14:46 Flight Physician: Agrees with eval, Agrees with plan, Accepts admit Counseled Regarding: Diagnosis, Lab results, Need for admission Discharge & Departure Primary Impression: Hyponatremia Additional Impressions: Dehydration Diarrhea Diarrhea type: unspecified type Qualified Code: R19.7 - Diarrhea, unspecified Gastroenteritis Acute kidney injury Disposition: ADMITTED TO HOSPITAL Discharge Condition All VS Reviewed: Yes Condition: Stable Referrals: Jane Morales MD (PCP) Shayla Attestation Portions of this note were transcribed by Michelle Arce. I, Dr. Steven Stephens personally performed the history, physical exam and medical decision-making; I reviewed and confirmed the accuracy of the information in the transcribed note. Signed by: Shayla Lerner, 03/07/17 and 1233 copies to: Jane Morales MD, Timothy S DO March 07, 2017 12:23 Toña Arce March 07, 2017 12:32
[2017-03-07] MEDS ORDERED: 0.9% Sodium Chloride 1,000 ML IV ONE ×2 (12:28→13:40)
[2017-03-07 12:31] LABS: EOSINOPHILS % (AUTO) 0 % (0-5)
[2017-03-07] MEDS ORDERED: Albuterol-Ipratropium 3 mL Inhalation Solution NEB ONE (12:35)
--- NOTE | 2017-03-07 12:52 | ABG ---
DateTimeAnalyzed 12:45:34 -_ pH ____7.422 - 7.350 7.450 pCO2 ___30.0__ -mmHg 35.0 45.0 pO2 ___94.3__ -mmHg 69.0 116 HCO3- ___19.5__ -mmol/L 22.0 26.0 ABE ___-4.1__ -mmol/L tHb ___17.5__ -g/dL O2Hb ___95.8__ -% COHb ____1.3__ -% 1.5 MetHb ____1.2__ -% sO2 ___98.3__ -% FIO2 ___28.0__ -% Drawn By [facility] - Date/Time Notified____ 12:52:00 -_ Oxygen Device 1 __CANNULA - Notified By [facility] - Notified Whom Okelley, Giuseppe DO -_ tO2 ___23.6__ -Vol% Carlos test _Positive -
[2017-03-07 13:13] LABS: MONOCYTES % (AUTO) 4 % (4-12); Mean Corpuscular Hemoglobin 29.2 pg (27.0-35.0); Mean Corpuscular Volume 74.6 fL (81-100); NEUTROPHILS % (AUTO) 83 % (40-74); Platelet Count 313 bil/L (150-400)
[2017-03-07 13:14] LABS: BASOPHILS % (AUTO) 0 % (0-3)
--- NOTE | 2017-03-07 13:31 | DRSVH ---
PROCEDURE: X-RAY CHEST ONE VIEW, PORTABLE ([id number]) INDICATIONS: dyspnea, weakness TECHNIQUE: One view of the chest was acquired. COMPARISON: [facility], CR, XR CHEST 2VW, 12/27/2016, 8:59. [facility], CR, XR CHEST 1VW (PORTABLE), 12/26/2016, 5:17. FINDINGS: Surgical changes and devices: None. Lungs and pleura: No pleural effusions or pneumothorax. Lungs are clear. Mediastinum: Mediastinal contours appear normal. Heart size is normal. Bones and chest wall: No suspicious bony lesions. Overlying soft tissues appear unremarkable. IMPRESSION: Source of dyspnea and weakness is not found. No pneumonia seen. Dictated by: Wilmar Kim M.D. on 03/07/2017 at 13:18 Approved by: Wilmar Kim M.D. on 03/07/2017 at 13:30
[2017-03-07 13:37] LABS: Magnesium 1.6 mg/dL (1.6-2.6)
[2017-03-07] MEDS ORDERED: 0.9% Sodium Chloride 1,000 ML IV SCH ×3 (13:40→15:06)
[2017-03-07] MEDS ORDERED: 0.9% Sodium Chloride 500 ML IV ONE (13:40)
[2017-03-07 13:48] LABS: TROPONIN T 0.019 ug/L (0.0-0.011)
[2017-03-07] MEDS ORDERED: KCl 40 mEq/D5W 500 mL 40 MEQ in IV Premix 1 EACH IV ONE (13:50)
[2017-03-07] MEDS ORDERED: Meropenem Inj 1,000 MG in IV Premix 1 EACH IV ONE (13:55)
[2017-03-07] MEDS ORDERED: Meropenem Inj 1,000 MG in 0.9% Sodium Chloride 50 ML IV ONE (14:05)
[2017-03-07] MEDS ORDERED: Vancomycin 250 mg Oral Capsule PO ONE (14:10)
[2017-03-07] MEDS ORDERED: Vancomycin Inj 1,750 MG in 0.9% Sodium Chloride 500 ML IV ONE (14:10)
[2017-03-07] MEDS ORDERED: 0.9% NaCl + KCl 20 mEq/L 1,000 ML IV SCH (14:25)
[2017-03-07] MEDS ORDERED: Magnesium Sulf 2 Gm/50mL Water 2 GM in IV Premix 1 EACH IV ONE (14:25)
--- NOTE | 2017-03-07 14:29 | DRSVH ---
PROCEDURE: CT BRAIN WITHOUT CONTRAST ([id number]) INDICATIONS: ALOC TECHNIQUE: Noncontrast 4.5 mm thick angled axial sections acquired from the foramen magnum to the vertex, with c oronal reformats. COMPARISON: None. FINDINGS: Image quality: Excellent. CSF spaces: Basal cisterns are patent. No extra-axial fluid collections. There is mild cerebral vo lume loss, with resultant ventricular and sulcal prominence. Brain: At the foramen of Wiseman, there is a small hyperdense ovoid lesion measuring up to 8 mm in darian meter. There is slight rightward midline shift by approximately 3 mm. There are subcortical, perive ntricular and deep white matter hypodensities consistent with chronic small vessel ischemic changes. There is intracranial internal carotid artery atherosclerosis. Skull and face: Calvarium and visualized facial bones appear intact, without suspicious lesions. Sinuses: Visualized sinuses and mastoids are clear. IMPRESSION: 1. 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 2. Mild ventricular prominence is likely related to cerebral volume loss given the associated promin ence of the sulci. A component of hydrocephalus cannot be fully excluded. 3. Slight rightward midline shift by approximately 3 mm is nonspecific. No definite evidence of unc al herniation. Further evaluation may be obtained with an MRI if clinically indicated. Findings discussed with Dr. Enrique on 03/07/17 at 2:20 PM. Dictated by: Colt Childers M.D. on 03/07/2017 at 14:14 Approved by: Colt Childers M.D. on 03/07/2017 at 14:27
--- NOTE | 2017-03-07 14:43 | DRSVH ---
PROCEDURE: CT ABDOMEN AND PELVIS WITHOUT CONTRAST ([id number]) INDICATIONS: sepsis TECHNIQUE: Noncontrast 5 mm thick sections acquired from the diaphragms to the symphysis. 5 mm coronal and sagi ttal reformats were then performed. For radiation dose reduction, the following was used: automated exposure control, adjustment of mA and/or kV according to patient size. COMPARISON: [facility], CT, ABD/PELVIS W/CON (PNL), 10/19/2012, 9:58. [facility], CT, CT ABD PELVIS W CON, 02/19/2017, 12:01. FINDINGS: Image quality: There is mild motion artifact. ABDOMEN: Lung bases: There is a small peripheral nodule posteriorly in the right lower lobe measuring 2-3 mm which appears stable compared to the prior studies. Heart size is normal. Solid organs: There is diffuse hypoattenuation of the liver consistent with fatty infiltration. The re is a cyst redemonstrated anteriorly in the right hepatic lobe. A small amount of pneumobilia is r edemonstrated. The gallbladder is surgically absent. The spleen is normal in size. Pancreas is nor mal in contours. There is mild thickening of the left adrenal gland which appears similar to the shawn or studies. Kidneys demonstrate no hydronephrosis. There is a small exophytic left renal cyst redem onstrated. Peritoneum and bowel: There is a small hiatal hernia. There is mild fluid distention of the stomach and throughout the small and large bowel with scattered air-fluid levels. No definite focal transit ion point, with sequential areas of non-distention in the colon. No free fluid or air. Nodes and vessels: No retroperitoneal or mesenteric adenopathy by size criteria. Aorta and inferior vena cava are normal in caliber. There is scattered vascular calcification without bulky calcificat ion at the origins of the celiac or superior mesenteric arteries. Miscellaneous: No ventral hernias. PELVIS: Genitourinary: Bladder wall thickness is normal. Miscellaneous: No inguinal hernias or adenopathy. Bones: No suspicious bony lesions. There is a mild anterior compression deformity of L1 vertebral b mack which appears unchanged from the prior study. No new vertebral body compression fractures. IMPRESSION: 1. Multiple dilated loops of small and large bowel with scattered air-fluid levels but no focal sprague sition point. The findings again likely represent an ileus or gastroenteritis. No definite evidence of obstruction. 2. Pneumobilia redemonstrated likely related to prior surgery or other intervention. 3. Hypoattenuation of the liver compatible with steatosis. 4. Mild anterior compression deformity of L1 vertebral body appears unchanged. Dictated by: Colt Childers M.D. on 03/07/2017 at 14:27 Approved by: Colt Childers M.D. on 03/07/2017 at 14:41
[2017-03-07] MEDS ORDERED: Ondansetron 2 mg/mL 2 mL Inj IVPUSH PRN ×2 (14:50→15:10)
[2017-03-07] MEDS ORDERED: Alum-Mag Hydrox-Simeth 30 mL Suspension PO PRN ×2 (14:50→15:10)
[2017-03-07 15:10] LABS: Phosphorus 3.9 mg/dL (2.5-4.9)
[2017-03-07] MEDS ORDERED: Polyethylene Glycol (PEG) 17 Gm Powder PO PRN (15:10)
[2017-03-07] MEDS ORDERED: VARE1TAB22 PO (15:49)
[2017-03-07] MEDS ORDERED: FLUT9.9S NS (15:50)
[2017-03-07] MEDS ORDERED: Vancomycin Dose per Pharmacist XX SCH (15:55)
--- NOTE | 2017-03-07 16:02 | PCM.HPMED ---
Subjective Date of Service March 07, 2017 Primary Provider: Admitting Physician: Lino Bucio MD Primary Care Physician: Jane Morales MD Attending Physician: Lino Bucio MD Chief Complaint: Nausea and vomiting and weakness History of Present Illness: 76-year-old male smoker with a history of COPD, hyperlipidemia, rheumatoid arthritis, sleep apnea and hypertension who presented to the emergency Department via EMS after a friend found him slumped over on the table and responsive. Patient states that he has had 3 weeks of nonbloody diarrhea, fatigue, weakness, and 1 week of severe nonbloody emesis. Patient states that 3 weeks ago he began having watery and foul smelling diarrhea and states that this occurs up to 5 times daily. Vomiting began last week and occurs postprandial up to 5 times daily. Patient has been unable to eat or drink. Patient denies fever, chills, cough, abdominal pain, dysuria, or chest pain. Patient was recently admitted in December with acute COPD exacerbation with negative MRSA and negative viral PCR. COPD who was diagnosed in 2014 with PFTs showing no response to bronchodilators in FEV1/FEC of 53. Patient states that he is compliant with his allergy medications, Flovent, DuoNeb's, and albuterol inhaler. The emergency department patient's vitals were 36.4, 114, 24, 113/87, 94 in room air. Patient seeing required 2 L of nasal cannula with saturation 95%. Meeting sirs and increased lactic acid, patient was treated with IV resuscitation. Patient had a moderate leukocytosis of 23.4, with a hemoglobin/hematocrit of 18.7/47.8. Was left shift with neutrophils of 83%. Patient also has macrocytosis. CMP was drastically worse with a sodium of 118, potassium of 1.8, chloride of 78 , bicarbonate 15, BUN/creatinine of 84, creatinine of 1.97, glucose of 1.77. Review of Systems: Complete review of systems performed; pertinent positives and negatives in history of present illness, all other systems reviewed and are negative. Allergies Coded Allergies: Penicillins (Verified Allergy, Severe, Skin rash, 02/19/17) Home Medications Atenolol (Atenolol) 25 Mg Tablet 25 MG PO DAILY Fexofenadine (Fexofenadine) 60 Mg Tablet 60 MG PO DAILY Fluticasone Propionate (Flovent HFA 110 mcg) Unknown Strength Aer.w.adap Unknown Dose IH BID Ipratropium/Albuterol Sulfate (Iprat-Albut 0.5-3(2.5) mg/3 mL Inhalant Soln) 3 Ml Ampul.neb 3 ML IH Q4H Montelukast (Montelukast) 10 Mg Tablet 10 MG PO HS Nicotine 21 mg/24 hr Patch (Nicotine 21 mg/24 hr Patch) 1 Each Patch.dysq 1 PATCH TRANSDERM DAILY Omeprazole (Omeprazole) 20 Mg Tablet.dr 20 MG PO BID Albuterol HFA (Proair HFA) 8.5 Gm Hfa.aer.ad 4 PUFFS INHALATION BID PRN PRN For Shortness of Breath Diphenoxylate/Atropine 2.5-0.025 mg (Lomotil 2.5-0.025 mg) 1 Each Tablet 1 TABLET PO DIRECTED PRN PRN For Diarrhea or Loose Stool 1-2 tabs every 6hrs, hold if constipated PMH RA Sleep apnea COPD GERD Hyperlipidemia Hypertension Surgical History Right great toe arthroplasty Right knee repair Appendectomy Cholecystectomy Family History Father and brother had cancer and father Social History Hx Alcohol Use: No Hx Substance Use: No Hx Tobacco Use: Yes (Quit last year 2008) Smoking Status: Former Smoker Exam Vital Signs Vital Sign - Last Date Time Temp Pulse Resp B/P Pulse Ox O2 Delivery O2 Flow Rate FiO2 03/07/17 15:27 36.4 91 18 144/83 95 Nasal Cannula 2 Exam Gen.: Mentation slow, patient in mild distress HEENT: Membranes dry, nares patent but cracked, scleral anicteric, skin turgor decreased Cardia: Regular rhythm and tachycardia, no murmurs Respiratory: CTA bilaterally though distant, and possible crackles in the lower to mid ferrera Abdomen: Distended, tympanic, nontender, small abrasions, positive bowel sounds were not heard, no rebound tenderness Extremities: Chilled, pulses intact, very weak and 3/5, no edema Psych: Patient's mentation slow Neuro: Sensation and proprioception intact, cranial nerves appear to be intact grossly Skin: No rashes; skin turgor decreased Musculoskeletal: Concave chest Lab and Diagnostics Result Diagram: 03/07/17 1228 03/07/17 1432 X-Rays, CTs and MRIs Chest x-ray IMPRESSION: Source of dyspnea and weakness is not found. No pneumonia seen. Dictated by: Wilmar Kim M.D. on 03/07/2017 at 13:18 Abdomen pelvis/CT 1. Multiple dilated loops of small and large bowel with scattered air-fluid levels but no focal transition point. The findings again likely represent an ileus or gastroenteritis. No definite evidence of obstruction. 2. Pneumobilia redemonstrated likely related to prior surgery or other intervention. 3. Hypoattenuation of the liver compatible with steatosis. 4. Mild anterior compression deformity of L1 vertebral body appears unchanged. Dictated by: Colt Childers M.D. on 03/07/2017 at 14:[address] 1. 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 2. Mild ventricular prominence is likely related to cerebral volume loss given the associated prominence of the sulci. A component of hydrocephalus cannot be fully excluded. 3. Slight rightward midline shift by approximately 3 mm is nonspecific. No definite evidence of uncal herniation. Further evaluation may be obtained with an MRI if clinically indicated. Findings discussed with Dr. Enrique on 03/07/17 at 2:20 PM. Dictated by: Colt Childers M.D. on 03/07/2017 at 14:14 12-lead ECG EKG with sinus tachycardia and low voltage; indiscriminate t-wave depression not significantly different from prior Assessment & Plan 76-year-old male with a history of COPD and ANA who presents with 3 weeks of diarrhea in 1 week of nonbloody emesis and severe weakness. Patient was found hunched over this table but responsive. Acute hypoxic respiratory failure: Present admission; ongoing - does not wear O2 at home - ABG in chart does not show hypercapnia or hypoxia - Requiring 2L NC to maintain sats > 88% - Maintain sats between 88 and 92; O2 nasal cannula SIRS with unknown source; present on admission; ongoing -tachycardic, tachypneic, with leukocytosis; source possibly GI, although this could be due to severe dehydration -denies systemic symptoms of infection except for diarrhea and vomiting -started on meropenem; held vanc as he has no hx of MRSA -Bcx and Ucx ordered -MRSA screen Severe acute hyponatremia second to hypovolemia and encephalopathy; present on admission; ongoing -Patient presents physically dehydrated with history of severe nausea and vomiting and diarrhea -Normal saline 1L in ED -Bolus of LR 1L on floor -LR at 125 -Every 4 hour sodium check; goal is not to exceed correction of more than 10 in 24 hour period Acute Gastroenteritis vs SBO; present on admission; ongoing -3 weeks of diarrhea with negative stool pcr; 1 week of emesis -Recent abx 2 months ago for COPD exacerbation -Zofran for nausea; PPI IV -NPO -If nausea persists will place NG and consult surgery for evaluation of imaging and possible SBO with overflow -Repeat Stool PCR Chronic COPD; present on admission; ongoing -Pt not currently hypercapnic; no complaint of increased cough -Continue home medications -Azithromycin -Duonebs Q4WA -Consider resp PCR if decompensates Respiratory alkalosis with lactic acidosis; was on admission; ongoing -Presented with a lactic acid of 3.3 and anion gap of 25 -Fluids as above -Trend Q2 hr Severe Hypokalemia; present on admission; ongoing -Due to vomiting/diarrhea; EKG low voltage but no sig change from baseline -Potassium 1.8 on admission; mag of 1.6 -Replace with piggyback potassium IV riders - PICC LINE ORDERED AND IV CHANGED TO [facility] Acute kidney injury; present on admission; going -Creatinine on admission was 1.97; baseline is 0.7 -Due to severe volume depletion -Fluids as above Microcytic normochromic anemia; present on admission; ongoing -Iron studies Hypertension -Patient currently volume depleted -Hold home meds Obstructive sleep apnea; present on admission; ongoing -Need machine from home -O2 overnight Dispo: Pt admitted to [facility] under inpatient status for expected LOS > 2 midnights due to severity of presentation, duration of treatment, and risk of complicating factors. Attending Statement The patient was seen and examined together with Dr. Russell on 03/07/2017 and I agree with the history, exam and plan as outlined in the note above. . Presley Russell DO March 07, 2017 16:02 Lino Bucio MD Mar 09, 2017 19:46
[2017-03-07] MEDS ORDERED: Lactated Ringer's 1,000 ML IV ONE (16:05)
[2017-03-07] MEDS ORDERED: Sodium Chloride LOK Flush 10 mL Syringe IVFLUSH PRN ×2 (17:00)
[2017-03-07] MEDS ORDERED: KCl 40 mEq/100 mL (CENTRAL) 40 MEQ in IV Premix 1 EACH IV ONE (17:05)
[2017-03-07 17:32] LABS: TROPONIN T 0.017 ug/L (0.0-0.011)
[2017-03-07] MEDS: Heparin 5,000 Unit/mL Inj SUBQ SCH (17:42)
[2017-03-07] MEDS: Lactated Ringer's 1,000 ML IV SCH (17:42)
[2017-03-07] MEDS: Sodium Chloride LOK Flush 10 mL Syringe IVFLUSH SCH (17:42)
[2017-03-07] MEDS ORDERED: Pantoprazole 4 mg/mL 10 mL Inj IVPUSH ONE (17:45)
[2017-03-07 17:50] LABS: Magnesium 2.4 mg/dL (1.6-2.6); Phosphorus 3.6 mg/dL (2.5-4.9)
[2017-03-07] MEDS ORDERED: Albuterol-Ipratropium 3 mL Inhalation Solution ONE (17:56)
[2017-03-07] MEDS: Albuterol-Ipratropium 3 mL Inhalation Solution NEB SCH ×2 (17:58→21:38)
--- NOTE | 2017-03-07 18:34 | NUR ---
Admit Pt arrived from ER to [facility]. Alert but sleepy and states feeling very fatigued. Answers questions appropriately but has mumbled, garbled, delayed speech. SYED from what I could tell. Continuous requests for water. Drank thin water with no swallowing issues. Tele SR. Sats 91% on 2L. Obvious distress with breathing. Nebulizer treatment started while pt was transporting to PICC suite. RT assessed. No void or BM yes since admission. Bilateral legs mottled, purple-ervin in color. Bilateral feet cold, pedal pulses weak. Face appears pale, diaphoretic. 2 peripheral IVs present. Son visited. Pt concerned about getting phone numbers from his house. Son will address this tomorrow. Pt left at 1815 for picc suite. Saline locked all IVs per MD order.
[2017-03-07] MEDS ORDERED: Magnesium Sulf 4 Gm/100 mL H2O 4 GM in IV Premix 1 EACH IV ONE (18:35)
--- NOTE | 2017-03-07 19:13 | DRSVH ---
PROCEDURE: X-RAY PICC LINE PLACEMENT BY NURSE ([id number]) INDICATIONS: central access; patient preference for arm COMPARISON: None. FINDINGS: PICC was placed by the intravenous therapy team from the right side. Fluoroscopic spot fi lm demonstrates tip of PICC in the distal SVC. IMPRESSION: Tip of PICC lies within the distal SVC. Dictated by: Svetlana Ngo MD, PhD on 03/07/2017 at 19:11 Approved by: Svetlana Ngo MD, PhD on 03/07/2017 at 19:11
--- NOTE | 2017-03-07 20:48 | CONS ---
[address] [address] CONSULTATION REPORT PATIENT: CARRINGTON MARMOLEJO V : 1940 MR#: [id number] ADMIT: 03/07/2017 JOB ID: [id number] DATE OF SERVICE: 03/07/2017 REQUESTING PHYSICIAN: Apollo Enrique. REASON FOR CONSULTATION: Management of electrolyte disturbance. CHIEF COMPLAINT: Watery diarrhea. HISTORY OF PRESENT ILLNESS: This is a 76-year-old male with significant past medical history of COPD, hypertension, tobacco abuse, who came to the hospital due to watery diarrhea and weakness. The patient was recently admitted at [facility] between December 26 and December 27, 2016 due to COPD exacerbation. The patient received IV Solu-Medrol, Rocephin and Azithromycin at that time. The patient was brought to the emergency room by his friend after he was found slumped over the table. The patient stated that he was extremely weak to be able to get up. The patient stated that he has had diarrhea for three weeks. He reported having watery, mucousy diarrhea at least three times a day. He also reported a history of nonbloody and nonbilious vomiting several times over the past week or so. His appetite is also very poor. He reported that his last urination was yesterday. He was later on brought to the hospital by his friend for further investigation. Of note, he was seen at the emergency room on February 19, 2017 for diarrhea. Stool PCR was done at that time and showed nondetected pathogens. Basic metabolic panel on that day was within normal limits. The patient reports no fever, chills, productive cough, no palpitations, no chest pain, no active bleeding. Upon arrival, his initial vitals were temperature of 35.8, pulse 82, respiratory rate 21, blood pressure 132/97. Initial BMP showed sodium of 118, potassium of 1.8, chloride 7.8, bicarbonate 15, BUN 84, creatinine 1.97. He received normal saline bolus in the emergency room. Empirical antibiotics were started including oral vancomycin, IV vancomycin, and IV meropenem. PAST MEDICAL HISTORY: 1. COPD. 2. Sleep apnea. 3. Tobacco abuse. 4. Hypertension. 5. Dyslipidemia. 6. GERD. 7. Per the record, rheumatoid arthritis was documented. PAST SURGICAL HISTORY: 1. Status post tonsillectomy. 2. Transurethral resection of prostate. 3. Status post right knee arthroscopy. 4. Status post right great toe arthroplasty. 5. Status post cholecystectomy. 6. Status post umbilical hernia repair. 7. Status post appendectomy. FAMILY HISTORY: No kidney disease in the family. SOCIAL HISTORY: He is a former smoker, quit smoking in 2008. ALLERGIES: PENICILLIN. REVIEW OF SYSTEMS: CONSTITUTIONAL: No fever, no chills. Positive for fatigue. HEENT: No headaches. No blurry vision. Otherwise clear. CARDIOVASCULAR: No palpitations. PULMONARY: No active productive cough. No hemoptysis. GI: Per HPI. : No dysuria, no hematuria. SKIN: No bruises. No active bleeding. NEURO: No neurological deficits. No headaches. No altered mental status. HEMATOLOGY: No easy bleeding. No bruises. PHYSICAL EXAMINATION: Vitals: Temperature 36.5, pulse 91, respiratory rate 20, blood pressure 121/74, O2 sat 91% on nasal cannula of 2 L. General appearance: Awake, alert, oriented x3, weak, cooperative. HEENT: Atraumatic. Dry mucosal membranes. Poor skin turgor noted on the neck. No pallor. No jaundice. No JVD. No lymphadenopathy. No thyroid enlargement. Heart: Regular rhythm. Normal S1, S2. Tachycardic. Lungs: Good air entry bilaterally. No wheezing or rhonchi. Coarse crackles noted at the bases. Abdomen soft. Decreased bowel sounds. Mild distention. Nontender. No guarding, no rigidity. Extremities: No edema, cyanosis. Positive for clubbing of fingers. Both feet are cold to touch. Good dorsalis pedis bilaterally. LABORATORY DATA: Sodium 120, potassium 1.8, chloride 77, bicarb 13, BUN 84, creatinine 1.98. WBC 23.4, hemoglobin 18.7, platelets 313. CAT scan showed multiple dilated loops of small and large bowel with scattered air-fluid levels but no focal transition point, the findings likely represent an ileus or gastroenteritis, pneumobilia redemonstrated related to prior surgery, hypoattenuation of liver compatible with steatosis. ASSESSMENT: 1. Acute kidney injury secondary to severe intravascular volume depletion. 2. Hypovolemic hyponatremia. 3. Severe hypokalemia secondary to GI loss and increased RAAS due to severe dehydration. 4. Mixed anion gap metabolic acidosis and metabolic alkalosis. 5. Systemic inflammatory response syndrome (SIRS). 6. Chronic diarrhea, onset three weeks ago, associated with vomiting, poor appetite. 7. Chronic obstructive pulmonary disease. The patient will require a large amount of fluid resuscitation. I will recommend bolus with normal saline 1-2 L in 1-2 hour. Monitor BMP closely. To rise sodium not over 10 mEq within 24 hours. Recommend NS + KCL 20 meq 150 m/hr. Aggressively replace potassium given arrhythmic episode. The patient will need potassium at least 240 mEq to be able to maintain normal level. Recommend magnesium supplement at least 2 g infusion today. I will not give any sodium bicarbonate since it may worsen hypokalemia. Likewise, his pH is 7.44. We do not need to give him any bicarb at this moment. Please adjust all of the medications per GFR. Repeat BMP again tonight around 10 p.m. Repeat BMP in the morning. Will order renal sonogram and check postvoid residual. Thank you for allowing me to participate in the care of your patient. STEPHANIA
[2017-03-07] MEDS ORDERED: Meropenem Inj 1,000 MG in IV Premix 1 EACH IV SCH (22:00)
[2017-03-08] VITALS (10 sets, daily range): BP systolic 111–143; BP diastolic 41–79; PULSE 96–112; RESP 17–26; O2SAT 92–97
[2017-03-08] MEDS: Sodium Chloride LOK Flush 10 mL Syringe IVFLUSH SCH ×4 (00:30→23:18)
[2017-03-08] MEDS: Lactated Ringer's 1,000 ML IV SCH (00:42)
[2017-03-08] MEDS: 0.9% NaCl + KCl 20 mEq/L 1,000 ML IV SCH ×3 (00:42→17:34)
[2017-03-08] MEDS: KCl 40 mEq/100 mL IV Premix (K < 3 & Creat <2) IV SCH ×2 (00:43→05:06)
[2017-03-08] MEDS: Heparin 5,000 Unit/mL Inj SUBQ SCH ×3 (00:46→16:57)
[2017-03-08] MEDS: Meropenem 1 Gm/100 mL NS Minibag Plus IV SCH ×4 (02:27→14:45)
[2017-03-08] MEDS: Albuterol-Ipratropium 3 mL Inhalation Solution NEB SCH ×4 (04:40→20:51)
[2017-03-08 05:16] LABS: BASOPHILS % (AUTO) 0 % (0-3); EOSINOPHILS % (AUTO) 0 % (0-5); MONOCYTES % (AUTO) 2 % (4-12); Mean Corpuscular Hemoglobin 29.7 pg (27.0-35.0); Mean Corpuscular Volume 76.4 fL (81-100); NEUTROPHILS % (AUTO) 57 % (40-74); Platelet Count 217 bil/L (150-400)
[2017-03-08] MEDS: Vancomycin Dose per Pharmacist XX SCH ×2 (05:49→08:15)
[2017-03-08] MEDS: Vancomycin Inj 750 MG in 0.9% Sodium Chloride 250 ML IV SCH ×2 (06:44→18:25)
--- NOTE | 2017-03-08 07:40 | NUR ---
Hemodynamics Pt appears drowsy and sluggish but he answers questions appropriately and able to make his needs known. Continues to have foul diarrhea. Pt produced total of 2 L of diarrhea. Lab values and assessment findings reported to Dr. Alvarez. Received multiple orders (refer to paper chart and electronic chart for further details). VSS. Frequent PVCs noted on monitor. Pt status was changed to IM for close monitoring. Addendum: 03/08/17 at 0745 by SAMARA SEARS RN Intra-abdominal Pressure (IAP) = 12
[2017-03-08 07:59] LABS: APPEARANCE,URINE HAZY (CLEAR,HAZY); COLOR,URINE YELLOW (YELLOW); OCCULT BLOOD,URINE MODERATE (NEGATIVE); PH,URINE 5.5 (5.0-8.0)
[2017-03-08 08:00] LABS: UROBILINOGEN,URINE NORMAL (NORMAL)
[2017-03-08 08:01] LABS: OSMOLALITY, URINE 392 mOs/kH2O (250-1200)
[2017-03-08 10:59] LABS: Mean Corpuscular Hemoglobin 29.4 pg (27.0-35.0); Mean Corpuscular Volume 78.4 fL (81-100); Platelet Count 162 bil/L (150-400)
[2017-03-08 11:16] LABS: BASOPHILS % (AUTO) 0 % (0-3); MONOCYTES % (AUTO) 1 % (4-12)
[2017-03-08 11:17] LABS: EOSINOPHILS % (AUTO) 0 % (0-5); NEUTROPHILS % (AUTO) 62 % (40-74)
--- NOTE | 2017-03-08 11:35 | PCM.PNNEPH ---
Sherry Pham DO 03/08/17 1135: Subjective Date of Service March 08, 2017 Subjective No acute events overnight. Patient reports ongoing fatigue and diarrhea. He is awake and answering appropriately but his speech is mumbled and somewhat delayed. He denies abdominal pain, fever, chills, and states that his breathing is at baseline. Exam Vital Signs Vital Sign - Last Date Time Temp Pulse Resp B/P Pulse Ox O2 Delivery O2 Flow Rate FiO2 03/08/17 11:20 100 24 93 Nasal Cannula 2.00 03/08/17 08:32 36.8 111/56 Intake and Output 03/07/17 03/07/17 03/08/17 Cumulative From/Thru 15:00 23:00 07:00 03/07/17 12:27 - 03/08/17 05:32 Intake Total 2000 ml 916 ml 3289 ml 6205 ml Output Total 3100 ml 3100 ml Balance 2000 ml 916 ml 189 ml 3105 ml Intake Oral 890 ml 890 ml IV Total 2000 ml 916 ml 2399 ml 5315 ml Output Urine Total 1100 ml 1100 ml Stool Total 2000 ml 2000 ml # Bowel Movements 1 1 Exam General: Chronically ill-appearing elderly male, appears uncomfortable but in no acute distress HEENT: Normocephalic, atraumatic. PERRLA, no scleral icterus, decreased skin turgor, oral mucosa dry. Neck: No jugular venous distension or lymphadenopathy Cardiovascular: Regular rate and rhythm with no murmurs, rubs, or gallops appreciated Pulmonary: Clear to auscultation bilaterally with no crackles, wheezes, or rhonchi. Abdomen: Soft, moderately distended with diffuse/mild tenderness to palpation. No rebound or guarding. Bowel tones present.No masses appreciated. Extremities: Cool, pulses intact, no cyanosis or edema Skin: N rashes or ulcerations, decreased skin turgor. Neurological: Cranial nerves grossly intact. No focal motor/sensory deficit appreciated IVs and Medications Medications Reviewed: Medications were reviewed in detail Lab and Diagnostics Result Diagram: 03/08/17 1005 03/08/17 1005 X-Rays, CTs and MRIs Chest x-ray IMPRESSION: Source of dyspnea and weakness is not found. No pneumonia seen. Dictated by: Wilmar Kim M.D. on 03/07/2017 at 13:18 Abdomen pelvis/CT 1. Multiple dilated loops of small and large bowel with scattered air-fluid levels but no focal transition point. The findings again likely represent an ileus or gastroenteritis. No definite evidence of obstruction. 2. Pneumobilia redemonstrated likely related to prior surgery or other intervention. 3. Hypoattenuation of the liver compatible with steatosis. 4. Mild anterior compression deformity of L1 vertebral body appears unchanged. Dictated by: Colt Childers M.D. on 03/07/2017 at 14:[address] 1. 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 2. Mild ventricular prominence is likely related to cerebral volume loss given the associated prominence of the sulci. A component of hydrocephalus cannot be fully excluded. 3. Slight rightward midline shift by approximately 3 mm is nonspecific. No definite evidence of uncal herniation. Further evaluation may be obtained with an MRI if clinically indicated. Findings discussed with Dr. Enrique on 03/07/17 at 2:20 PM. Dictated by: Colt Childers M.D. on 03/07/2017 at 14:14 12-lead ECG EKG with sinus tachycardia and low voltage; indiscriminate t-wave depression not significantly different from prior Plan Impression 76-year-old male with a history of COPD, hypertension, tobacco abuse, hyperlipidemia, sleep apnea and rheumatoid arthritis who presented to the emergency department with a three week history of diarrhea, fatigue and vomiting. 1. Acute kidney injury secondary to severe intravascular volume depletion. 2. Hypovolemic hyponatremia. 3. Severe hypokalemia secondary to GI loss and increased RAAS due to severe dehydration. 4. Mixed anion gap metabolic acidosis and metabolic alkalosis. 5. Systemic inflammatory response syndrome (SIRS). 6. Chronic diarrhea, onset three weeks ago, associated with vomiting, poor appetite. 7. Chronic obstructive pulmonary disease. Plan: -Continue fluid resuscitation, NS at 125mls/hr and monitor BMP -Due to severe hypokalemia with arrhythmic episode and ongoing diarrhea, continue with aggressive potassium replacement. -Replete magnesium -Repeat BMP and check magnesium in the morning. -Renal ultrasound, pending. Kal Ochoa MD 03/09/17 1119: Exam Lab and Diagnostics Result Diagram: 03/08/17 1005 03/08/17 1005 Plan Impression I have seen and examined this patient with resident. Agreed as above. Vickie Powell MD Pg [phone] Sherry Pham DO March 08, 2017 11:35 Kal Ochoa MD Mar 09, 2017 11:19
--- NOTE | 2017-03-08 12:14 | CONS ---
[address] [address] CONSULTATION REPORT PATIENT: CARRINGTON MARMOLEJO V : 1940 MR#: [id number] ADMIT: 03/07/2017 JOB ID: [id number] DATE OF SERVICE: 03/08/2017 REQUESTING PHYSICIAN: I thank Dr. Bucio for this timely consult. REASON FOR CONSULTATION: High-volume intractable diarrhea with dehydration. HISTORY OF THE PRESENT ILLNESS: The patient is a 76-year-old gentleman with multiple medical problems revolving around COPD and rheumatoid arthritis. He was recently admitted to this facility back in late December with a COPD exacerbation and was treated with broad-spectrum antibiotics, as well as a short course of high-dose intravenous steroids before would be discharged on his usual array of outpatient medications which include inhaled steroids and a PPI but apparently not oral steroids. The current history of this unfortunate gentleman starts about three weeks ago when he reports he developed nausea, vomiting, and persistent nonbloody diarrhea. This diarrhea was high volume and was associated with some abdominal distention. The patient had some fatigue as well. He attempted to fight through these symptoms until he was found slumped over at a table by a friend and transported to the ER yesterday. The patient states that his diarrhea has been going on for about three weeks, and it has been foul smelling several times a day. He also has had nausea and vomiting which started actually after the diarrhea and has been quite severe. He has been unable to take down any nutrition for many days now and is just slowly getting weaker and weaker to the point he cannot take care of himself. After admission, he was found to have profound leukocytosis with left shift, as well as prerenal azotemia and profound weakness. Throughout this admission, the patient states he has had no fevers, chills, or sweats. He denies really abdominal pain, though notice his abdomen is more distended than normal. He states his respiratory status, which is always a bit impaired, is no worse than it was before. No dysuria, urgency, or frequency. PAST MEDICAL HISTORY: 1. Rheumatoid arthritis. 2. Obstructive sleep apnea. 3. COPD, quite severe. 4. GERD. 5. Hyperlipidemia. 6. Hypertension. SOCIAL HISTORY: The patient was a smoker but quit about a decade ago. He is a drinker and quit about 25 years ago. He lives by himself at this point, and he used to work as a window washer. FAMILY HISTORY: Negative for tuberculosis in first or second degree relatives. REVIEW OF SYSTEMS: The patient today denies having headache. Denies any acute visual change. Denies sores in the mouth or trouble swallowing. No sore throat. He has been unable to eat, however, because of his intractable diarrhea and recently nausea and vomiting. He has been diffusely weak but no fevers, chills, or sweats. He is short of breath but not much worse than normal. He has a minimally productive cough which is similar to his normal cough. No chest pain. No pleuritic chest pain. He notes his abdomen is distended. He is having frequent large volume diarrhea without blood in it, as well as nausea and vomiting. No significant pain, though. No urgency, frequency, or dysuria. He states his lower extremities are not painful, even as we discovered his left foot is relatively cold. He states he is too weak to walk recently, and that started about the time of the nausea, vomiting, and diarrhea. No focal neurologic complaints are reported. Remainder of the review of systems is negative. PHYSICAL EXAMINATION: Reveals an afebrile gentleman. He has been afebrile since admission yesterday about this time. Current temp 36.8, pulse 101, respiratory rate 22, blood pressure 111/56. He is saturating well on 2 L. His respiratory rate, though, seems somewhat labored and rapid which may be due to his underlying acidosis. His mental status is clear in that he is oriented x3. He is fairly laconic, however, and does not give a great deal of history beyond yes or no answers, but he is awake and able to answer some questions. His head is without trauma or temporal wasting. He appears very dehydrated. His eyes are sunken. Conjunctivae without conjunctival hemorrhage. Nose is normal. Oral cavity is dry with diffuse erythema of the oral cavity. His neck is thin and without adenopathy. It is reasonably supple. There is no JVD. His neck veins are really flat. Mucous membranes are dry, as mentioned. His lungs are notable for some crackles at the bases bilaterally. Cardiac tones: There is a fair amount of irregularity superimposed on an underlying regular rhythm. Checking his EKG, it looks like he is in multifocal atrial tachycardia accounting for this. His abdomen is quite distended but without focal tenderness. Very minimal bowel sounds heard anywhere over this distended abdomen, but it is not tender and I did not appreciate hepatosplenomegaly or ascites. His groin is notable for a Cuenca catheter. Normal penis and scrotum. No inguinal adenopathy is appreciated. The lower extremities are relatively normal above the knees. There is no evidence for synovitis, and there is no evidence for skin rash. The patient's left foot, however, lacks pulses. The right foot has excellent pulses. The right foot and ankle are quite cool, as the right is well perfused. Neither one has been covered with blankets, so this cannot be explained by that. He has intact sensation throughout and can move his extremities, including his cool left foot. Remainder of the neuro exam is unremarkable. LABORATORY STUDIES: Include white count 32,000 with 40% bands. His hematocrit is 38, and his MPV is 76. His creatinine is 0.76, and it has been declining from a peak of 1.52 yesterday. Lactic acid was 3.3 when he came in. It is now 1.6. Procalcitonin is 2.13 when he arrived, now 1.67. LFTs are normal, interestingly. Albumin 3.1. Urinalysis without white cells. Urine sodium is less than 10. During his last admission in December, he had cryptococcal and cocci studies which were negative. This time, we have micro including a stool multiplex PCR that is negative, a nasal MRSA swab that is positive. Note that on his last admission two months ago, his MRSA swab was negative. Blood cultures are negative so far. No recent positive blood cultures of interest. IMAGING: There is a great deal of imaging from this admission. His chest x-ray is clear. His abdominal pelvic CT shows dilated loops of small and large bowel with scattered air-fluid levels, which could be consistent with an ileus or gastroenteritis. Pneumobilia is noted which the radiologist said could be due to a prior surgery, though we are not certain about any prior surgery. Brain CT scan shows no notable abnormalities. IMPRESSION: This is a fascinating and difficult case to pull together quickly. The patient has underlying severe chronic obstructive pulmonary disease and was here two months ago and received steroids and antibiotics. The antibiotics could clearly predispose him to Clostridium difficile, and these multiplex PCRs we use are not perfect, so I think it is reasonable to recheck a specific stool PCR for Clostridium difficile. Additionally, the steroids he received could have predisposed him to a variety of conditions, including reactivation Strongyloides in this gentleman who briefly was in [place] many decades ago. Could also predispose him to CMV colitis. Other possibilities here would include some things that are not tested by our multiplex studies, including Microsporidia or Isospora, but I think these are quite unlikely unless he is HIV positive. An HIV test will need to be done. The finding of pneumobilia in a patient without right upper quadrant tenderness is a bit confusing. This certainly raises the possibility of replicating organisms in the biliary tree, but his LFTs are normal and he does not have any tenderness. I note that his gallbladder is surgically absent on imaging studies, so I am not sure how to explain the pneumobilia unless it is left over from his cholecystectomy. This biggest clue, I think, in terms of this current evaluation is his left foot is cool and that he is in multifocal atrial tachycardia. Multifocal atrial tachycardia can be associated with embolic phenomena, and I wonder if he is throwing emboli to both his gut producing hemorrhage or abnormalities leading to the diarrhea and perhaps also to his left foot. Another possibility is he simply became so dehydrated that he has lost blood flow to the left foot, but in any event, that needs to be evaluated. RECOMMENDATIONS: 1. Will check an HIV test. 2. Stool for C. diff will be checked. 3. Strongyloides antibody will be checked. 4. Stool for ova and parasites will be ordered. This is rarely of value, but I think this might be a situation where it could be. 5. I would consult the GI service and see if they think an endoscopic procedure is indicated, perhaps with biopsies of the bowel, upper or lower. 6. It may also be reasonable to do an upper endoscopy and perform biopsies which could be used to look for Whipple's disease, among other things. 7. Arterial studies of the left lower extremity are indicated emergently, as he does appear to have loss of blood flow there. 8. A cardiac echocardiogram will be ordered to look for evidence of vegetation or clot. 9. I agree with the ongoing antibiotics which include meropenem, as well as IV vancomycin in the short run and oral vancomycin. I note that it appears that his oral vancomycin has been discontinued, and I will restart that at this point, as I think C. diff still remains a possibility. Thank you very much for this very complex consultation which took about 1 hour in total, or 70 minutes in total, including some research time, and will be following this patient very closely with you. Note that this case was discussed with the renal farm consultant, as well as the Medicine team.
[2017-03-08 13:09] LABS: Unsaturated Iron Binding 92.7 ug/dL
--- NOTE | 2017-03-08 13:49 | DRSVH ---
PROCEDURE: US DUPLEX DOPPLER UNILATERAL LEG ARTERIES, LEFT INDICATIONS: Loss of DP,PT pulse on L-cool foot TECHNIQUE: Color and pulse Doppler interrogation was performed of the left lower extremity arterial system, with image documentation. COMPARISON: None. FINDINGS: Common femoral artery: 73 cm/sec, with triphasic flow. Deep femoral artery: 75 cm/sec, with triphasic flow. Proximal superficial femoral artery: 67 cm/sec, with triphasic flow. Mid superficial femoral artery: 78 cm/sec, with triphasic flow. Distal superficial femoral artery: 52 cm/sec, with triphasic flow. Popliteal artery: 70 cm/sec, with triphasic flow. Posterior tibial artery: 104 cm/sec, with triphasic flow. Anterior tibial artery/dorsalis pedis: 32 cm/sec, with biphasic flow. Liz-scale imaging description: Scattered plaque IMPRESSION: 20-49% focal stenosis involving the posterior tibial artery. Dictated by: Akash Yung M.D. on 03/08/2017 at 13:45 Approved by: Akash Yung M.D. on 03/08/2017 at 13:47
[2017-03-08] MEDS ORDERED: 0.9% Sodium Chloride 100 ML ONE (14:01)
[2017-03-08] MEDS ORDERED: KCl 40 mEq/100 mL (CENTRAL) 40 MEQ in IV Premix 1 EACH IV ONE ×2 (14:10→18:35)
[2017-03-08] MEDS ORDERED: Vancomycin Inj 1,250 MG in 0.9% Sodium Chloride 250 ML IV SCH (15:00)
--- NOTE | 2017-03-08 15:47 | NUR ---
Social Work: Brief Note / Attempted Initial Assessment Data:Pt is a 76 y/o male admitted for sepsis, hyponatremia, hypokalemia, diarrhea. Pt's insurance is [employer] and PCP is Jane Morales MD. EMR Reviewed. Pt's readmission score is 5, high. [employer]LE[employer] H[employer]ER [employer] RENDER[employer] attempted to meet with pt at bedside, medical staff working with pt during both [employer] attempts. Per initial assessment completed in December of 2016, pt resides at home alone with a fww/cane/ and powerchair, but does not use them. Pt drives and had no HH or SNF history. Pt has no jail care insurance or VA benefits. Assessment:Pt who is independent at baseline. Plan: [employer] will complete initial assessment with pt at a later time. Pt likely to discharge home when medically stable via POV. [employer] will continue to follow for possible d/c planning needs. MIRNA Richards
--- NOTE | 2017-03-08 16:08 | PCM.PNMED ---
Subjective Date of Service March 08, 2017 Subjective Overnight patient did well. His lab work has been frustrating as his sodium, creatinine and potassium are inconsistent with treatment and disease course. Pt states he feels a little better than when admitted. Still putting out about 2L diarrhea today. Nausea is improved with zofran; abdomen is increasingly distended. Case discussed with ID and GI. Lower extremities are intermittently cold/warm. US pending. Exam Vital Signs Vital Sign - Last Date Time Temp Pulse Resp B/P Pulse Ox O2 Delivery O2 Flow Rate FiO2 03/08/17 15:39 105 24 95 Nasal Cannula 2.00 03/08/17 12:40 36.5 143/67 Intake and Output 03/07/17 03/07/17 03/08/17 Cumulative From/Thru 15:00 23:00 07:00 03/07/17 12:27 - 03/08/17 05:32 Intake Total 2000 ml 916 ml 3289 ml 6205 ml Output Total 3100 ml 3100 ml Balance 2000 ml 916 ml 189 ml 3105 ml Intake Oral 890 ml 890 ml IV Total 2000 ml 916 ml 2399 ml 5315 ml Output Urine Total 1100 ml 1100 ml Stool Total 2000 ml 2000 ml # Bowel Movements 1 1 Exam Gen.: Mentation slow, patient in mild distress Cardia: Regular rhythm and tachycardia, no murmurs Respiratory: CTA bilaterally though distant; wheezing Abdomen: more distended, tympanic, nontender, bowel sounds not heard; no rebound tenderness Extremities: Chilled, pulses intact, very weak and 3/5, no edema Psych: Patient's mentation still slow Neuro: Sensation and proprioception intact, cranial nerves appear to be intact grossly IVs and Medications Medications Reviewed: Medications were reviewed in detail Lab and Diagnostics Result Diagram: 03/08/17 1005 03/08/17 1220 X-Rays, CTs and MRIs Chest x-ray IMPRESSION: Source of dyspnea and weakness is not found. No pneumonia seen. Dictated by: Wilmar Kim M.D. on 03/07/2017 at 13:18 Abdomen pelvis/CT 1. Multiple dilated loops of small and large bowel with scattered air-fluid levels but no focal transition point. The findings again likely represent an ileus or gastroenteritis. No definite evidence of obstruction. 2. Pneumobilia redemonstrated likely related to prior surgery or other intervention. 3. Hypoattenuation of the liver compatible with steatosis. 4. Mild anterior compression deformity of L1 vertebral body appears unchanged. Dictated by: Colt Childers M.D. on 03/07/2017 at 14:[address] 1. 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 2. Mild ventricular prominence is likely related to cerebral volume loss given the associated prominence of the sulci. A component of hydrocephalus cannot be fully excluded. 3. Slight rightward midline shift by approximately 3 mm is nonspecific. No definite evidence of uncal herniation. Further evaluation may be obtained with an MRI if clinically indicated. Findings discussed with Dr. Enrique on 03/07/17 at 2:20 PM. Dictated by: Colt Childers M.D. on 03/07/2017 at 14:14 12-lead ECG EKG with sinus tachycardia and low voltage; indiscriminate t-wave depression not significantly different from prior Assessment & Plan 76-year-old male with a history of COPD and ANA who presents with 3 weeks of diarrhea in 1 week of nonbloody emesis and severe weakness. Patient was found hunched over this table but responsive. Acute hypoxic respiratory failure: Present admission; ongoing - does not wear O2 at home; breathing with accessory muscles but saturating ok on O2 NC - ABG in chart does not show hypercapnia or hypoxia - Requiring 2L NC to maintain sats > 88% - Maintain sats between 88 and 92; O2 nasal cannula -Repeat ABG SIRS with unknown source; present on admission; ongoing -tachycardic, tachypneic, with leukocytosis; source possibly GI, although this could be due to severe dehydration -denies systemic symptoms of infection except for diarrhea and vomiting -started on meropenem; held vanc as he has no hx of MRSA -Bcx and Ucx pending -MRSA positive; Stool PCR negative -Patient on vanco, meropenem, and vanco PO despite negative PCR for C. Diff Diarrhea, possibly infectious vs inflammatory; present on admission; ongoing -Outpatient diarrhea 5x daily; negative PCR stool -Recent abx 2 months ago for COPD exacerbation -Stool WBC, crypto, pcr c-diff, etc -Stool osmol, na, k, etc -GI consulted and discussed with Dr. Calloway -Loperamide for diarrhea after pcr stool neg Severe acute hyponatremia second to hypovolemia and encephalopathy; present on admission; ongoing -Patient presents physically dehydrated with history of severe nausea and vomiting and diarrhea -Lab results today have been horribly inconsistent but estimate current Na around 130 and K around 2.5 -Continuing NS at 125ml/hr -Every 4 hour sodium check; goal is not to exceed correction of more than 10 in 24 hour period Ileus vs SBO vs enteritis; present on admission; ongoing -3 weeks of diarrhea with negative stool pcr; 1 week of emesis -Zofran for nausea; PPI IV -Heart healthy diet as tolerated -NG placed today Chronic COPD; present on admission; ongoing -Pt not currently hypercapnic; no complaint of increased cough -Continue home medications -Azithromycin -Duonebs Q4WA -Resp PCR ordered -Considering steroids once infection r/o Respiratory alkalosis with lactic acidosis; was on admission; resolving -Presented with a lactic acid of 3.3 and anion gap of 25 -Fluids as above -Trend Q2 hr Severe Hypokalemia; present on admission; ongoing -Due to vomiting/diarrhea; EKG low voltage but no sig change from baseline -Potassium 1.8 on admission; mag of 1.6 -Continue repletion Acute kidney injury; present on admission; going -Creatinine on admission was 1.97; baseline is 0.7 -Due to severe volume depletion -Fluids as above Microcytic normochromic anemia; present on admission; ongoing -Iron studies in chart -Appears to be due to infection vs anemia of chronic disease Hypertension -Patient currently volume depleted -Hold home meds Obstructive sleep apnea; present on admission; ongoing -Need machine from home -O2 overnight Dispo: Pt admitted to [facility] under inpatient status for expected LOS > 2 midnights due to severity of presentation, duration of treatment, and risk of complicating factors. Pain Evaluation: Adequate Pain Control Attending Statement The patient was seen and examined together with Dr. Russell on 03/08/2017 and I agree with the history, exam and plan as outlined in the note above. . Presley Russell DO March 08, 2017 16:08 Lino Bucio MD Mar 09, 2017 19:52
--- NOTE | 2017-03-08 16:08 | ABG ---
DateTimeAnalyzed 15:54:27 -_ pH ____7.349 - 7.350 7.450 pCO2 ___33.2__ -mmHg 35.0 45.0 pO2 ___76.2__ -mmHg 69.0 116 HCO3- ___18.3__ -mmol/L 22.0 26.0 ABE ___-6.6__ -mmol/L tHb ___14.3__ -g/dL O2Hb ___94.8__ -% COHb ____1.4__ -% 1.5 MetHb ____0.6__ -% sO2 ___96.7__ -% FIO2 ___21.0__ -% Drawn By gj - Date/Time Notified____ 16:07:00 -_ Liter_Flow ____2.00_ -L/min Oxygen Device 1 __CANNULA - Notified By GJ - Notified Whom ___DR. GREENE - K+ ____2.3__ -mmol/L tO2 ___19.1__ -Vol% Carlos test _Positive -
--- NOTE | 2017-03-08 16:27 | DRSVH ---
[facility] [address] [place] [address] Echocardiogram Report Name: CARRINGTON MARMOLEJO VStudy Date : 03/08/2017 Height: 71 in Hospital Exam Location: [facility] Weight: 214 lb Gender: Male BSA: 2.2 m2 : 1940 Age: 76 yrs BP: 111/56 mmHg Reason For Study: Possible Emboli Performed By: Candace Wiseman Referring Physician: YING HORVATH Interpretation Summary The study quality was technically difficult. The left ventricular ejection fraction is grossly normal. The right ventricle is grossly normal size. There is no significant valvular heart disease. Procedure: A two-dimensional transthoracic echocardiogram with color flow Doppler was performed. The study quality was technically difficult. The patient was imaged in a supine and upright posistion and was unable to follow breathing instructions. Images from the parasternal window were difficult to obtain and are suboptimal in quality. The apical views were difficult to obtain and are suboptimal in quality. Comparison is made with the echocardiogram of 12/27/2016. The heart rate ranged between 104-111 bpm during the study. Left Ventricle: The left ventricle is grossly normal size. The left ventricular ejection fraction is grossly normal. Right Ventricle: The right ventricle is grossly normal size. Atria: The left atrium is not well visualized. Right atrium not well visualized. Mitral Valve: The mitral valve is not well visualized. Aortic Valve: The aortic valve is not well visualized. Tricuspid Valve: The tricuspid valve is not well visualized, but is grossly normal. There is mild tricuspid regurgitation. Pulmonic Valve: The pulmonic valve is not well visualized. Great Vessels: The aortic arch could not be visualized. The inferior vena cava was not visualized. Pericardium/ Pleura There is an anterior echo-free space consistent with a fat pad. There is no pericardial effusion. There is no pleural effusion. MMode/2D Measurements & Calculations LVOT diam: 2.7 cm Doppler Measurements & Calculations TR max michelle: 254.2 cm/sec TR max P.8 mmHg Electronically signed by: Micky Brantley on Reading Physician:03/08/2017 04:24 PM
[2017-03-08] MEDS: Pantoprazole 40 mg ER24 Tablet PO SCH (17:33)
[2017-03-08] MEDS: Cholestyramine Resin Powder 4 Gm Packet PO SCH ×2 (18:16→23:14)
--- NOTE | 2017-03-08 18:23 | DRSVH ---
PROCEDURE: X-RAY CHEST ONE VIEW ([id number]) INDICATIONS: dyspnea TECHNIQUE: One view of the chest was acquired. COMPARISON: None. FINDINGS: Surgical changes and devices: manager monitoring leads are seen over the chest. There is a PICC line fro m the right arm with the tip in the region of the superior vena cava above the right atrium. Artifact ual findings are present from overlying clothing or shooting. Lungs and pleura: No pleural effusions or pneumothorax. Allowing for the rotation of the chest, the lungs are considered clear.. Mediastinum: Mediastinal contours appear normal. Heart size is normal. Bones and chest wall: No suspicious bony lesions. Overlying soft tissues appear unremarkable. IMPRESSION: Acute disease is not appreciated. Cause of dyspnea is not identified. Dictated by: Moris Harris M.D. on 03/08/2017 at 18:19 Approved by: Moris Harris M.D. on 03/08/2017 at 18:21
--- NOTE | 2017-03-08 18:23 | CONS ---
[address] [address] CONSULTATION REPORT PATIENT: CARRINGTON MARMOLEJO V : 1940 MR#: [id number] ADMIT: 03/07/2017 JOB ID: [id number] DATE OF SERVICE: 03/08/2017 REASON FOR CONSULTATION: It was a pleasure seeing this patient at [facility] GI service for diarrhea. HISTORY OF PRESENT ILLNESS: This is a 76-year-old gentleman with several medical issues including COPD, tobacco abuse, hypertension, and most recently he was admitted to the hospital back in December due to COPD exacerbation. At that time, he received IV Solu-Medrol, Rocephin and azithromycin, and he was eventually discharged. His story began about three weeks ago when he was in his usual state of health. He was having normal stools without any blood. He was not constipated and he did not have any diarrhea. Then three weeks ago, he suddenly started having multiple episodes of diarrhea. The diarrhea that was described as watery, foul-smelling. He did have up to seven episodes a day. He did not report seeing any blood. There was also associated nausea, sometimes vomiting. The vomitus was nonbloody and nonbilious. During this time, he had poor appetite, decreased p.o. intake and he was feeling quite weak. He was in the emergency department back in February 2014 for diarrhea and they did stool studies which were negative. Labs at that time were normal and he was sent home. Then he came to the emergency department yesterday and the day of the admission he had three episodes of diarrhea and he had one episode of vomiting. During this time, he denied any abdominal pain. Otherwise he denies any fever or chills, headaches, blurred vision, dizziness, lightheadedness, chest pain, shortness of breath. Even if he is breathing quite rapidly, he denies shortness of breath. Decreased urine output noted. No skin rash or joint pain. PAST MEDICAL HISTORY: Includes COPD, sleep apnea, tobacco abuse, hypertension, hyperlipidemia, reflux, and questionable rheumatoid arthritis. PAST SURGICAL HISTORY: Tonsillectomy, knee surgery, cholecystectomy, umbilical repair and appendectomy. FAMILY HISTORY: Noncontributory. SOCIAL HISTORY: He stopped smoking in 2008. No alcohol. ALLERGIES: To PENICILLIN. MEDICATIONS: Here include albuterol nebs, atenolol, meropenem, potassium, loperamide, heparin, vancomycin, potassium, sodium chloride, pantoprazole, azithromycin, Tylenol, polyethylene glycol, senna, Zofran and Maalox. PHYSICAL EXAMINATION: Patient is alert, appears to be in somewhat distress with rapid breathing but denies shortness of breath. Temp 36.5, pulse 105, blood pressure 143/67, respiration 24, 95% on nasal cannula of 2 L. Head and neck: No icterus, no lymphadenopathy. Lungs: Decreased breath sounds and somewhat wheezes diffusely. Cardiovascular: Tachycardic, S1, S2. Abdomen is soft, nontender. Moderately distended with bowel sounds. Extremities: No pitting edema of the ankles. Skin shows no jaundice. Radial pulses bilateral and intact. LABORATORY DATA: White count 19,000, hemoglobin 11.3, platelets are 162,000. Sodium 130, potassium 2.4, CO2 96, Cl 16, BUN 70, creatinine 1.05, and LFTs are normal. Yesterday, total protein 5.7, albumin 3.1. Serology: CMV, Strongyloides, and HIV are pending. IMAGING: Includes chest x-ray, which was unremarkable. CT of the chest, abdomen and pelvis without contrast showed multiple dilated loops of small and large bowel with scattered air-fluid level but no focal transition point suggesting of ileus versus gastroenteritis. Pneumobilia noted. Liver steatosis. IMPRESSION and PLAN: This is a gentleman with three weeks of multiple diarrhea, decreased p.o. intake, and nausea and vomiting. Etiology with elevated white count suggests that this could be infectious in etiology. Theoretically this is not a chronic diarrhea of course because he was having no diarrhea and normal stools up to three weeks ago. He has history of significant antibiotic use. He is getting vancomycin, azithromycin, and meropenem. Infectious Disease is managing the abtibiotics, therefore I will defer the antibiotic issued to Infectious Disease. It appears that microbiology does not reveal any organism that was isolated. However, this does not obviously completely rule out an infectious etiology. He does not appear to be immunocompromised per se. The unusual organisms such as E. histolytica, Cyclospora, Cryptosporidium have been ruled out. Giardia was also ruled out as well. In terms of endoscopy, endoscopy may be indicated if we have no clear etiology. However with low potassium such a high acidosis, there is a risk of arrhythmias but this needs to be addressed prior to doing an elective endoscopy. GI will follow. RECOMMENDATIONS: In the meantime, recommend the followin. Stool osmols, stool sodium, stool chloride. 2. CMV, PCR, DNA. 3. HSV, IgG, IgM level, type 1 and 2. 4. I would still get Giardia and Cryptosporidium as well as E. histolytica with another stool antigen. 5. Other diarrhea such as VIPoma, gastrinoma is probably less likely because this occurred acutely three weeks ago. However if we do not have any etiology, we can obtain these levels. 6. Obtain stool fecal leukocytes, as well as stool fat qualitative. If this is an unidentified infection, I think the antibiotics would treat the diarrhea. In the meantime, consider loperamide, Lomotil. The other thing we could place the patient on is cholestyramine. 7. There is a issue of pneumobilia. He had a cholecystectomy. Pneumobilia is not unusual if he had a sphincterotomy. He has normal liver function tests and CT scan that was done, did not mention any dilated ducts. Therefore,denovo synthesis of stones causing ascending cholangitis is less likely, but recommend the radiologist to get the exact dimension of the CBD. If there is evidence of dilation, consider doing MRCP to see if there is a potential stone. AIDAND
--- NOTE | 2017-03-08 18:33 | DRSVH ---
PROCEDURE: X-RAY KUB ([id number]) INDICATIONS: NG TUBE PLACEMENT, dyspnea TECHNIQUE: One view of the abdomen acquired. COMPARISON: None. FINDINGS: Surgical changes and devices: NG tube has been placed. Side hole is just into the stomach. Adenosine at 10 cm may be of some benefit. Bowel: Bowel gas pattern shows some prominent bowel loops. Whether this is ileus or obstruction can not be determined on this film. Soft tissues: No suspicious abdominal calcifications. Visualized solid organ contours appear normal in size. Bones: No suspicious bony lesions. IMPRESSION: NG tube and sidehole just into the region of the stomach. Advancing it 10 cm may be of so me benefit. Dictated by: Moris Harris M.D. on 03/08/2017 at 18:30 Approved by: Moris Harris M.D. on 03/08/2017 at 18:32
--- NOTE | 2017-03-08 19:19 | NUR ---
NG tube/rectal tube/tele/blister NG tube placed around 1530 today 16 armenian measured at 65cm. Pt tolerated well. Low intermittent suctioning per MD order turned off post pantoprazole PO administration, per MD instruction. To return to suction at 1930, night RN aware. NS with K+ currently hanging per MD instruction. Rectal tube in place, patent. 800cc liquid stool output this shift. Tele SR with very frequent PVCs. Small blister found on upper L buttock, intact. Placed tagaderm for protection. Night RN aware. No c/o pain this shift. Pt very pleasant and cooperative with cares.
[2017-03-08] MEDS ORDERED: Azithromycin Inj 500 MG in Dextrose 5% w/Vial Mate 250 ML IV SCH (21:00)
[2017-03-08] MEDS: Vancomycin 125 mg Oral Capsule PO SCH (21:03)
[2017-03-09] VITALS (17 sets, daily range): BP systolic 102–117; BP diastolic 55–66; PULSE 81–109; RESP 14–24; O2SAT 93–98
[2017-03-09] MEDS: Heparin 5,000 Unit/mL Inj SUBQ SCH ×4 (00:01→23:09)
[2017-03-09] MEDS: 0.9% NaCl + KCl 20 mEq/L 1,000 ML IV SCH ×2 (00:02→02:41)
[2017-03-09] MEDS: Albuterol-Ipratropium 3 mL Inhalation Solution NEB SCH ×4 (01:36→19:10)
[2017-03-09] MEDS: Meropenem 1 Gm/100 mL NS Minibag Plus IV SCH ×4 (01:49→13:58)
[2017-03-09] MEDS: Vancomycin 125 mg Oral Capsule PO SCH ×2 (02:40→08:22)
[2017-03-09 04:01] LABS: INR 1.05 ratio
[2017-03-09 04:10] LABS: BASOPHILS % (AUTO) 0.2 % (0-3); EOSINOPHILS % (AUTO) 0.7 % (0-5); MONOCYTES % (AUTO) 7.4 % (4-12); Mean Corpuscular Hemoglobin 29.3 pg (27.0-35.0); Mean Corpuscular Volume 77.8 fL (81-100); NEUTROPHILS % (AUTO) 83.2 % (40-74); Platelet Count 190 bil/L (150-400)
[2017-03-09 04:16] LABS: Phosphorus 1.3 mg/dL (2.5-4.9)
[2017-03-09] MEDS ORDERED: Potassium Phos (mEq) Inj 40 MEQ in Dextrose 5% 500 ML IV ONE (05:10)
[2017-03-09] MEDS: Cholestyramine Resin Powder 4 Gm Packet PO SCH ×4 (05:16→23:09)
[2017-03-09] MEDS ORDERED: Vancomycin Serum Trough XX ONE (05:30)
[2017-03-09] MEDS: Vancomycin Inj 750 MG in 0.9% Sodium Chloride 250 ML IV SCH (05:47)
--- NOTE | 2017-03-09 05:51 | NUR ---
P: c/o mild dyspnea I: neb tx, 2L NC 02 E: Pt requests neb tx x 2 tonight. States helpful. Denies pain, N/V. Thirsty. Requesting ice water. L NGT to LIS. NGT clamp for one hour after PO med taken. Tele SR/ST w/ multifocal PVCs. BP stable. Afebrile. FMS draining liquid dk brown stool. Cuenca draining light clarence urine. 40K+ rider tonight and now infusing K/phos rider.
[2017-03-09] MEDS: Albuterol-Ipratropium 3 mL Inhalation Solution NEB PRN (07:19)
[2017-03-09] MEDS: Pantoprazole 40 mg ER24 Tablet PO SCH ×2 (08:21→16:46)
[2017-03-09] MEDS: Sodium Chloride LOK Flush 10 mL Syringe IVFLUSH SCH ×3 (08:22→23:09)
--- NOTE | 2017-03-09 08:46 | PROG NOTE ---
[address] [address] PROGRESS NOTE PATIENT: CARRINGTON MARMOLEJO V : 1940 MR#: [id number] ADMIT: 03/07/2017 JOB ID: [id number] DATE: 03/09/2017 REASON FOR FOLLOWUP: Severe diarrhea with associated dehydration. INTERVAL HISTORY: Overnight the patient thinks he is slightly better. He does not have any fever or chills. He denies abdominal pain. He feels mildly shortness of breath and is still requiring supplemental oxygen, but has no cough. He does not have vomiting and cannot quantitate his stool as he has rectal tube in place. Overall he thinks he is a little bit, but still very sick. PHYSICAL EXAMINATION: Reveals an afebrile gentleman. Temperature 36.9, pulse 100, respiratory rate 20, blood pressure 117/60, saturating 94% on 2 L. Examination of the head is unremarkable. Eyes without conjunctivitis. He has an NG tube in place. Oral cavity negative. Lungs fairly clear bilaterally. Cardiac tones with regular rate and rhythm. Abdomen is distended, but entirely soft and nontender. A rectal tube is in place and considerable amounts of thin, brown stool are being collected. Yesterday he had 2 L of stool, today 600 cc. DIAGNOSTIC STUDIES: Labs include a white count which is a little better at 17,000, platelets 190. Creatinine 0.87 which is improved. Potassium 10.6 which will need to be addressed. LFTs normal. Procalcitonin 0.5 which is falling by about 50% per day. Urinalysis without white cells. CMV serologies are pending. HIV is negative. Strongyloides is pending. Stool white cells negative. Stool for occult blood positive. Stool PCR negative. A chest x-ray done yesterday is clear. A KUB done yesterday done yesterday shows prominent bowel loops. The arterial study of the left lower extremity I ordered yesterday shows fairly insignificant stenosis of the posterior tibial artery. IMPRESSION: This is a gentleman with underlying chronic obstructive pulmonary disease who recently received steroids and antibiotics. He is now admitted with 3 weeks of very severe dehydration leading to renal failure, electrolyte abnormalities, and life-threatening illness. Our imaging and studies so far have been negative, but we await any pending studies. I have discussed this case with Dr. Bucio today and late yesterday with Dr. Calloway of GI. We are in agreement that if the patient does not start to improve, we may need endoscopy and/or other invasive studies to try and obtain tissue. I think this is probably a bacterial process, however, as his procalcitonin is falling, though that could simply be related to improving renal function. RECOMMENDATIONS: 1. Repeat stool C. diff should be done and I will call the [facility] to make sure it is not cancelled. 2. We await Strongylouides serology. 3. We await the CMV and other pending serologies. 4. Will continue with our current antibiotics which include meropenem and oral vanco. 5. The patient is receiving IV vanco, but I am not certain why, and we will discontinue that today. 6. The patient is receiving IV azithromycin and I am also not sure why that would be so I will just take this up with the primary team before stopping it. 7. If a repeat C. diff comes back negative, we will go ahead and stop the oral vanco. Invasive diarrhea such as C. diff without a pos PCR would be quite unusual. MTDD
[2017-03-09] MEDS ORDERED: Potassium Phos (mMol) Inj 30 MMOL in Dextrose 5% 500 ML IV ONE (08:50)
--- NOTE | 2017-03-09 09:28 | PCM.PNNEPH ---
Sherry Pham DO 03/09/17 0927: Subjective Date of Service Mar 09, 2017 Subjective Patient remains afebrile with no acute events overnight. This morning he states that he is feeling a bit better but overall no significant change. He denies chest pain, fever, chills, nausea, vomiting, or abdominal pain. However, he notes mild and diffuse tenderness on palpation of his abdomen. He reports shortness of breath which is chronic and reportedly at baseline. Exam Vital Signs Vital Sign - Last Date Time Temp Pulse Resp B/P Pulse Ox O2 Delivery O2 Flow Rate FiO2 03/09/17 09:10 Supplement Oxygen 03/09/17 09:09 36.8 102 14 102/66 93 2.00 Intake and Output 03/08/17 03/08/17 03/09/17 Cumulative From/Thru 15:00 23:00 07:00 03/07/17 12:27 - 03/09/17 05:38 Intake Total 2227 ml 2534 ml 60470 ml Output Total 875 ml 2555 ml 6530 ml Balance 1352 ml -21 ml 4436 ml Intake Oral 300 ml 620 ml 1810 ml IV Total 1927 ml 1914 ml 9156 ml Output Urine Total 1280 ml 2380 ml Stool Total 600 ml 2600 ml Gastric Drainage Total 875 ml 675 ml 1550 ml # Bowel Movements 1 Exam General: Chronically ill-appearing elderly male, appears uncomfortable but in no acute distress HEENT: Normocephalic, atraumatic. PERRLA, no scleral icterus, decreased skin turgor, oral mucosa dry. Cardiovascular: Regular rate and rhythm with no murmurs, rubs, or gallops appreciated Pulmonary: Clear to auscultation bilaterally with no crackles, wheezes, or rhonchi. Abdomen: Soft, moderately distended with diffuse/mild tenderness to palpation. No rebound or guarding. Bowel tones present. Extremities: Warm, dry with distal pulses intact, no cyanosis or edema Skin: No rashes or ulcerations, decreased skin turgor. Neurological: Cranial nerves grossly intact. No focal motor/sensory deficit appreciated IVs and Medications Medications Reviewed: Medications were reviewed in detail Lab and Diagnostics Laboratory Tests Test 03/08/17 10:05 03/08/17 11:10 03/08/17 12:20 03/08/17 14:15 White Blood Count 19.9th/mm3 (3.8-10.1) Red Blood Count 3.84mil/mm3 (4.40-5.80) Hemoglobin 11.3g/dL (13.8-17.2) Hematocrit 30.1% (41.0-50.0) Mean Corpuscular Volume 78.4fL (81-100) Mean Corpuscular Hemoglobin 29.4pg (27.0-35.0) Mean Corpuscular Hemoglobin Concent 37.5% (32.0-37.0) Red Cell Distribution Width 13.3% (12.3-15.4) Platelet Count 162bil/L (150-400) Neutrophils (%) (Auto) 62% (40-74) Lymphocytes (%) (Auto) 2% (14-46) Monocytes (%) (Auto) 1% (4-12) Eosinophils (%) (Auto) 0% (0-5) Basophils (%) (Auto) 0% (0-3) Band Neutrophils % 34% (1-5) Metamyelocytes % 1% (0-0) Sodium Level 133mEq/L (134-144) 139mEq/L (134-144) 130mEq/L (134-144) Potassium Level 5.4mEq/L (3.5-5.2) 5.0mEq/L (3.5-5.2) 2.4mEq/L (3.5-5.2) Chloride Level 106mEq/L (97-108) 100mEq/L (97-108) 96mEq/L (97-108) Carbon Dioxide Level 14mmol/L (18-29) 24mmol/L (18-29) 16mmol/L (18-29) Blood Urea Nitrogen 58mg/dL (8-27) 40mg/dL (8-27) 70mg/dL (8-27) Creatinine 0.76mg/dL (0.76-1.27) 1.55mg/dL (0.76-1.27) 1.05mg/dL (0.76-1.27) Estimat Glomerular Filtration Rate 106mL/min (>59) 47mL/min (>59) 73mL/min (>59) Glucose Level 89mg/dL (60-99) 135mg/dL (60-99) 116mg/dL (60-99) Calcium Level 6.0mg/dL (8.5-10.1) 9.5mg/dL (8.5-10.1) 7.9mg/dL (8.5-10.1) Iron Level 97ug/dL (35-150) Total Iron Binding Capacity 190ug/dL (250-450) Percent Iron Saturation 51%sat (15-50) Unsaturated Iron Binding 92.7ug/dL Ferritin 424ng/mL (30-400) HIV (1&2) Ag and Ab, 4th Generation Non reactive (Non Reactive) Test 03/08/17 16:29 03/08/17 20:45 03/09/17 03:30 Sodium Level 129mEq/L (134-144) 131mEq/L (134-144) 135mEq/L (134-144) Potassium Level 2.5mEq/L (3.5-5.2) 2.5mEq/L (3.5-5.2) 2.6mEq/L (3.5-5.2) Chloride Level 93mEq/L (97-108) 96mEq/L (97-108) 100mEq/L (97-108) Carbon Dioxide Level 16mmol/L (18-29) 17mmol/L (18-29) 17mmol/L (18-29) Blood Urea Nitrogen 65mg/dL (8-27) 58mg/dL (8-27) 52mg/dL (8-27) Creatinine 0.95mg/dL (0.76-1.27) 0.95mg/dL (0.76-1.27) 0.87mg/dL (0.76-1.27) Estimat Glomerular Filtration Rate 82mL/min (>59) 82mL/min (>59) 91mL/min (>59) Glucose Level 102mg/dL (60-99) 92mg/dL (60-99) 83mg/dL (60-99) Calcium Level 7.8mg/dL (8.5-10.1) 8.0mg/dL (8.5-10.1) 8.1mg/dL (8.5-10.1) Total Bilirubin 0.3mg/dL (0.0-1.2) Aspartate Amino Transf (AST/SGOT) 28U/L (0-50) Alanine Aminotransferase (ALT/SGPT) 33U/L (0-44) Alkaline Phosphatase 106U/L (25-160) Total Protein 5.5g/dL (6.4-8.4) Albumin 3.3g/dL (3.4-5.0) Hold Anton Top Tube Received (Received) White Blood Count 17.6th/mm3 (3.8-10.1) Red Blood Count 4.51mil/mm3 (4.40-5.80) Hemoglobin 13.2g/dL (13.8-17.2) Hematocrit 35.1% (41.0-50.0) Mean Corpuscular Volume 77.8fL (81-100) Mean Corpuscular Hemoglobin 29.3pg (27.0-35.0) Mean Corpuscular Hemoglobin Concent 37.6% (32.0-37.0) Red Cell Distribution Width 14.1% (12.3-15.4) Platelet Count 190bil/L (150-400) Neutrophils (%) (Auto) 83.2% (40-74) Lymphocytes (%) (Auto) 6.7% (14-46) Monocytes (%) (Auto) 7.4% (4-12) Eosinophils (%) (Auto) 0.7% (0-5) Basophils (%) (Auto) 0.2% (0-3) Prothrombin Time 11.3sec (8.1-12.5) Prothromb Time International Ratio 1.05ratio Phosphorus Level 1.3mg/dL (2.5-4.9) Magnesium Level 2.0mg/dL (1.6-2.6) Lipase 4U/L (13-60) Procalcitonin 0.52ng/mL (0.00-0.08) Vancomycin Level Trough 14.1mcg/mL Result Diagram: 03/09/17 0330 03/09/17 0330 Microbiology 03/08/17 Stool WBC, FOBT- No WBCs seen, Positive for occult blood. 03/07/17 Blood Culture -NO GROWTH AFTER 24 HOURS 03/08/17 Resp viral PCR- negative 03/08/17 CMV IgG, IgM- pending 03/08/17 HIV nonreactive 03/08/17 Strongyloides Ab- pending. 03/09/17 C. difficile DNA Amplification- Pending . X-Rays, CTs and MRIs Chest x-ray IMPRESSION: Source of dyspnea and weakness is not found. No pneumonia seen. Dictated by: Wilmar Kim M.D. on 03/07/2017 at 13:18 Abdomen pelvis/CT 1. Multiple dilated loops of small and large bowel with scattered air-fluid levels but no focal transition point. The findings again likely represent an ileus or gastroenteritis. No definite evidence of obstruction. 2. Pneumobilia redemonstrated likely related to prior surgery or other intervention. 3. Hypoattenuation of the liver compatible with steatosis. 4. Mild anterior compression deformity of L1 vertebral body appears unchanged. Dictated by: Colt Childers M.D. on 03/07/2017 at 14:[address] 1. 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 2. Mild ventricular prominence is likely related to cerebral volume loss given the associated prominence of the sulci. A component of hydrocephalus cannot be fully excluded. 3. Slight rightward midline shift by approximately 3 mm is nonspecific. No definite evidence of uncal herniation. Further evaluation may be obtained with an MRI if clinically indicated. Findings discussed with Dr. Enrique on 03/07/17 at 2:20 PM. Dictated by: Colt Childers M.D. on 03/07/2017 at 14:14 12-lead ECG EKG with sinus tachycardia and low voltage; indiscriminate t-wave depression not significantly different from prior Plan Impression 76-year-old male with a history of COPD, hypertension, tobacco abuse, hyperlipidemia, sleep apnea and rheumatoid arthritis who presented to the emergency department with a three week history of diarrhea, fatigue and vomiting. 1. Acute kidney injury secondary to severe intravascular volume depletion- Improving. 2. Severe hypokalemia secondary to GI loss and increased RAAS due to severe dehydration. 3. Mixed anion gap metabolic acidosis and metabolic alkalosis. 4. Hypophosphatemia 5. Hypovolemic hyponatremia- resolved with fluids. 6. Chronic diarrhea, onset three weeks ago, associated with vomiting, poor appetite. 7. Chronic obstructive pulmonary disease. Plan: -Continue IV fluids, NS at 125mls/hr and monitor BMP -Due to severe hypokalemia with arrhythmic episode and ongoing diarrhea, continue with aggressive potassium replacement. -Potassium phosphate 30mmol -Repeat BMP, magnesium and phosphorus in the morning. Kal Ochoa MD 03/09/17 1141: Exam Lab and Diagnostics Result Diagram: 03/09/1732903/09/17329 Plan Plan: I have seen and examined this patient with resident. Agreed as above. He has persistent hypokalemia in the setting of ongoing watery diarrhea and volume depletion. Na has been normalized. He will require at least 200 meq of K replacement per day. KPO4 30 mmol ordered by primary team in am. I will add another KPO4 30 mmol. NS+KCL 40 meq 125 ml/hr. Repeat BMP in am. Vickie Powell MD Pg [phone] Sherry Pham DO Mar 09, 2017 09:27 Kal Ochoa MD Mar 09, 2017 11:41
--- NOTE | 2017-03-09 10:00 | NUR ---
NG tube Pt stated he wanted the NG tube taken out, MD's rounded when I was giving meds, NG was clamped and MD's stated that by 0900 if no nausea I could remove the NG tube. Waited till the pt ate his clear liquid breakfast, no nausea noted. NG tube removed at 1000.
--- NOTE | 2017-03-09 10:57 | PCM.PNMED ---
Subjective Date of Service Mar 09, 2017 Subjective Patient improving slowly. NG was placed yesterday with little liquid out. Bowels seem to be slowing down with the use of loperamide and cholestyramine. ID is involved and multiple studies are pending. Repeat CDIFF was negative and so far cause of diarrhea is not appreciated. GI is also involved. Consult notes are available in the chart. Exam Vital Signs Vital Sign - Last Date Time Temp Pulse Resp B/P Pulse Ox O2 Delivery O2 Flow Rate FiO2 03/09/17 09:10 Supplement Oxygen 03/09/17 09:09 36.8 102 14 102/66 93 2.00 Intake and Output 03/08/17 03/08/17 03/09/17 Cumulative From/Thru 15:00 23:00 07:00 03/07/17 12:27 - 03/09/17 05:38 Intake Total 2227 ml 2534 ml 84141 ml Output Total 875 ml 2555 ml 6530 ml Balance 1352 ml -21 ml 4436 ml Intake Oral 300 ml 620 ml 1810 ml IV Total 1927 ml 1914 ml 9156 ml Output Urine Total 1280 ml 2380 ml Stool Total 600 ml 2600 ml Gastric Drainage Total 875 ml 675 ml 1550 ml # Bowel Movements 1 Exam Gen.: mentation improved today Cardia: Regular rhythm and tachycardia, no murmurs Respiratory: CTA bilaterally though distant; wheezing Abdomen: more distended, tympanic, nontender, bowel sounds not heard; no rebound tenderness Extremities: pulses intact, very weak and 3/5, no edema IVs and Medications Medications Reviewed: Medications were reviewed in detail Lab and Diagnostics Result Diagram: 03/09/17 0330 03/09/17 0330 Microbiology 03/08/17 Stool WBC, FOBT- No WBCs seen, Positive for occult blood. 03/07/17 Blood Culture -NO GROWTH AFTER 24 HOURS 03/08/17 Resp viral PCR- negative 03/08/17 CMV IgG, IgM- pending 03/08/17 HIV nonreactive 03/08/17 Strongyloides Ab- pending. 03/09/17 C. difficile DNA Amplification- Pending . X-Rays, CTs and MRIs Chest x-ray IMPRESSION: Source of dyspnea and weakness is not found. No pneumonia seen. Dictated by: Wilmar Kim M.D. on 03/07/2017 at 13:18 Abdomen pelvis/CT 1. Multiple dilated loops of small and large bowel with scattered air-fluid levels but no focal transition point. The findings again likely represent an ileus or gastroenteritis. No definite evidence of obstruction. 2. Pneumobilia redemonstrated likely related to prior surgery or other intervention. 3. Hypoattenuation of the liver compatible with steatosis. 4. Mild anterior compression deformity of L1 vertebral body appears unchanged. Dictated by: Colt Childers M.D. on 03/07/2017 at 14:[address] 1. 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 2. Mild ventricular prominence is likely related to cerebral volume loss given the associated prominence of the sulci. A component of hydrocephalus cannot be fully excluded. 3. Slight rightward midline shift by approximately 3 mm is nonspecific. No definite evidence of uncal herniation. Further evaluation may be obtained with an MRI if clinically indicated. Findings discussed with Dr. Enrique on 03/07/17 at 2:20 PM. Dictated by: Colt Childers M.D. on 03/07/2017 at 14:14 12-lead ECG EKG with sinus tachycardia and low voltage; indiscriminate t-wave depression not significantly different from prior Assessment & Plan 76-year-old male with a history of COPD and ANA who presents with 3 weeks of diarrhea in 1 week of nonbloody emesis and severe weakness. Patient was found hunched over this table but responsive. Acute hypoxic respiratory failure: Present admission; stable - does not wear O2 at home; breathing with accessory muscles but saturating ok on O2 NC - ABG in chart does not show hypercapnia or hypoxia - Requiring 2L NC to maintain sats > 88% - Maintain sats between 88 and 92; O2 nasal cannula Severe Hypokalemia; present on admission; improved -Due to vomiting/diarrhea; EKG low voltage but no sig change from baseline; currently 2.5 -Potassium 1.8 on admission; mag of 1.6 -Continue repletion Persistent sinus tachycardia tachypnea; present on admission; ongoing -Patient presented in sepsis and thought to be initial cause; intermittent runs of PVC's that are non-sustained likely related to hypokalemia -Current cause of tachy unknown -Pt has been very well hydrated, although perhaps not enough as he still makes large amounts of diarrhea -Continue with fluid hydration -Metoprolol 25mg once today to monitor response Weakness; present on admission; ongoing -Palliative medicine consulted; PT consulted -Up and out of bed -Diet is heart healthy -Check prealbumin tomorrow Diarrhea, possibly infectious vs inflammatory; present on admission; improved -Outpatient diarrhea 5x daily for 3 weeks; negative PCR stool -Recent abx 2 months ago for COPD exacerbation -Stool WBC, crypto, pcr c-diff, etc pending -Stool osmol, na, k, etc pending -GI consulted and discussed with Dr. Calloway -Loperamide and cholestyramine for diarrhea seems to be improving Severe acute hyponatremia second to hypovolemia with encephalopathy; present on admission; resolving -Patient presents physically dehydrated with history of severe nausea and vomiting and diarrhea -Lab results today have been horribly inconsistent but estimate current Na around 130 and K around 2.5 -Continuing NS at 125ml/hr -Every 4 hour sodium check; goal is not to exceed correction of more than 10 in 24 hour period SIRS with unknown source; present on admission; resolving -tachycardic, tachypneic, with leukocytosis; source possibly GI, although this could be due to severe dehydration -denies systemic symptoms of infection except for diarrhea and vomiting -started on meropenem; held vanc as he has no hx of MRSA -Bcx and Ucx pending -MRSA positive; Stool PCR negative -Patient on vanco, meropenem, and vanco PO despite negative PCR for C. Diff ? Ileus vs SBO vs enteritis; present on admission; stable -3 weeks of diarrhea with negative stool pcr; 1 week of emesis; not terribly convinced this is either ileus/sbo -Zofran for nausea; PPI IV -Heart healthy diet as tolerated -NG placed yesterday with little out; removing this am after clamped Chronic COPD; present on admission; stable -Pt not currently hypercapnic; no complaint of increased cough; continues to be tachypneic -Continue home medications -Azithromycin discontinued today -Duonebs Q4WA -Resp PCR negative -ABG's within limits and expectations; non-acidemic Respiratory alkalosis with lactic acidosis; resolved -Presented with a lactic acid of 3.3 and anion gap of 25 -Fluids as above -Trend Q2 hr Acute kidney injury; present on admission; resolved -Creatinine on admission was 1.97; baseline is 0.7 -Due to severe volume depletion -Fluids as above Microcytic normochromic anemia; present on admission; stable -Iron studies in chart -Appears to be due to infection vs anemia of chronic disease Hypertension; stable -Patient currently volume depleted -restarted home atenolol tomorrow Obstructive sleep apnea; present on admission; stable -Need machine from home -O2 overnight Dispo: Will need at least 2 more days Pain Evaluation: Adequate Pain Control Attending Statement The patient was seen and examined together with Dr. Russell on 03/09/2017 and I agree with the history, exam and plan as outlined in the note above. . Presley Russell DO Mar 09, 2017 10:57 Lino Bucio MD Mar 09, 2017 19:53
[2017-03-09] MEDS: Potassium Chloride Inj 40 MEQ in 0.9% Sodium Chloride 1,000 ML IV SCH ×2 (12:07→20:25)
--- NOTE | 2017-03-09 13:39 | NUR ---
NUTRITION ASSESSMENT: ASSESS: Pt is a 76yo M admitted for severe weakness, hyponatremia and persistent diarrhea and nausea. Pt reported minimal PO intake x1 week. Pt had NGT in place overnight with minimal output and no reported nausea so NGT was removed this am. Pt tolerated CL diet so NGT was removed. Pt currently has heart healthy diet order. GI and nephrology involved. Per chart review, no major wt loss noted. PMHX: RA, ANA, COPD, HLD, HTN LABS: Reviewed. K 2.8, Bun 43, Glu 103, ca 8.1, alb 3.3 MEDS: Reviewed. GI: pt has rectal tube d/t diarrhea. 875ml output 03/08 SKIN: no major issues noted CURRENT WTS: 95.9kg, BMI 29.5kg/m2. DIET: Heart Healthy, PO 100%x1 meal of CL diet EST. NEEDS: WALTER Kcals: 2400-2875kcal/day (25-30kcal/kg) Pro: 75-95g/day (.8-1.0g/kg) NUTRITION DIAGNOSIS: 1.) Inadequate oral intake related to altered GI function as evidence by pt with persistent diarrhea, emesis and reported poor PO intake x1 week prior to admit NUTRITION INTERVENTION: 1.) Continue to encourage fluid intake. Will add Ensure L tray. MONITOR / EVAL: PO, wt, GI, labs, POC, nutrition status. Will continue to monitor per moderate nutrition risk guidelines
--- NOTE | 2017-03-09 13:47 | NUR ---
TASHIA Signed @ 842AM
--- NOTE | 2017-03-09 14:31 | NUR ---
Social Work note - initial assessment Rl Dorman is a 76 yr old admitted for sepsis, hyponatremia, Diarrhea. EMR reviewed: Pt has Medicare and for life. His PCP is Dr Morales. No LTC insurance, has [place] benefits. Pt states his daughter is his DPOA - CLINICAL NURSING INSTRUCTOR asked for family to bring in paperwork. Readmit score is high. See attached CM initial assessment. CLINICAL NURSING INSTRUCTOR met with pt - introduced D/C planning and explained SW role. Pt lives at home alone. He admits that he has not been doing well at home - has felt weak and has not had the energy to "take care of things". Pt states he has food at home, but did not make anything. He has a FWW, cane and power chair at home. He states he tries not to use them, but has them as needed. He states he still drives. CLINICAL NURSING INSTRUCTOR explored more help at d/c - Pt states he does not want to go to SNF - is interested in HH for RN and PT - has used them in the past, but does not know what agency. Choices list provided. PT is ordered - will evaluate function. Pt asked that a referral be started for [facility] - Gave CLINICAL NURSING INSTRUCTOR permission to call - CLINICAL NURSING INSTRUCTOR spoke with Selma at [facility] - [phone]. She will start pt on Monday at home. Pt states that Kyle, his step son will help with transportation home [phone]. Assessment: Pt who is malnourished, weak who would benefit from SNF for rehab but is refusing. Plan: Likely home with HH RN PT LLOYD, CLINICAL NURSING INSTRUCTOR - CLINICAL NURSING INSTRUCTOR will continue to follow. KADEEM Varela Addendum: 03/09/17 at 1442 by ESTEFANI HANNAH SS Amended: Links added.
--- NOTE | 2017-03-09 16:02 | NUR ---
Evaluation completed. Please go to "Notes" then click on "Assessments and Notes" (bottom left corner of screen). Then select appropriate discipline tab on top of screen.
--- NOTE | 2017-03-09 17:16 | PCM.PNMED ---
Subjective Date of Service Mar 09, 2017 Subjective Patient says he feels better. However his stool output is still diarrhea. He is on Imodium and cholestyramine and it did decrease his stool output earlier today. Exam Vital Signs Vital Sign - Last Date Time Temp Pulse Resp B/P Pulse Ox O2 Delivery O2 Flow Rate FiO2 03/09/17 16:47 36.5 93 17 116/63 95 Nasal Cannula 2.00 Intake and Output 03/08/17 03/08/17 03/09/17 Cumulative From/Thru 15:00 23:00 07:00 03/07/17 12:27 - 03/09/17 05:38 Intake Total 2227 ml 2534 ml 04731 ml Output Total 875 ml 2555 ml 6530 ml Balance 1352 ml -21 ml 4436 ml Intake Oral 300 ml 620 ml 1810 ml IV Total 1927 ml 1914 ml 9156 ml Output Urine Total 1280 ml 2380 ml Stool Total 600 ml 2600 ml Gastric Drainage Total 875 ml 675 ml 1550 ml # Bowel Movements 1 Exam Patient is alert and comfortable Head and neck no icterus Lungs clear Cardia vascular regular rate and rhythm normal S1-S2 Abdomen soft nontender moderately distended normoactive bowel sounds Extremities minimal edema of the ankles Lab and Diagnostics Result Diagram: 03/09/17 0330 03/09/17 1050 Microbiology 03/08/17 Stool WBC, FOBT- No WBCs seen, Positive for occult blood. 03/07/17 Blood Culture -NO GROWTH AFTER 24 HOURS 03/08/17 Resp viral PCR- negative 03/08/17 CMV IgG, IgM- pending 03/08/17 HIV nonreactive 03/08/17 Strongyloides Ab- pending. 03/09/17 C. difficile DNA Amplification- Pending . X-Rays, CTs and MRIs Chest x-ray IMPRESSION: Source of dyspnea and weakness is not found. No pneumonia seen. Dictated by: Wilmar Kim M.D. on 03/07/2017 at 13:18 Abdomen pelvis/CT 1. Multiple dilated loops of small and large bowel with scattered air-fluid levels but no focal transition point. The findings again likely represent an ileus or gastroenteritis. No definite evidence of obstruction. 2. Pneumobilia redemonstrated likely related to prior surgery or other intervention. 3. Hypoattenuation of the liver compatible with steatosis. 4. Mild anterior compression deformity of L1 vertebral body appears unchanged. Dictated by: Colt Childers M.D. on 03/07/2017 at 14:[address] 1. 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 2. Mild ventricular prominence is likely related to cerebral volume loss given the associated prominence of the sulci. A component of hydrocephalus cannot be fully excluded. 3. Slight rightward midline shift by approximately 3 mm is nonspecific. No definite evidence of uncal herniation. Further evaluation may be obtained with an MRI if clinically indicated. Findings discussed with Dr. Enrique on 03/07/17 at 2:20 PM. Dictated by: Colt Childers M.D. on 03/07/2017 at 14:14 12-lead ECG EKG with sinus tachycardia and low voltage; indiscriminate t-wave depression not significantly different from prior Assessment & Plan 76-year-old male with a history of COPD and ANA who presents with 3 weeks of diarrhea in 1 week of nonbloody emesis and severe weakness. Patient was found hunched over this table but responsive. The diarrhea has improved on cholestyramine and Imodium. The output seems to be less. Stool study request that I recommended is still pending. Electrolyte abnormality is somewhat better. The cause of diarrhea at this point is still unknown. Thus far stool PCR is negative. Stools WBC crypto Osmo sodium potassium are pending. Consider colonoscopy were random biopsies if patient does not improve and no etiology is found. Omid Calloway MD Mar 09, 2017 17:16
[2017-03-10] VITALS (13 sets, daily range): BP systolic 104–139; BP diastolic 48–86; PULSE 60–107; RESP 16–26; O2SAT 91–98
[2017-03-10] MEDS: Albuterol-Ipratropium 3 mL Inhalation Solution NEB PRN ×3 (00:13→23:29)
[2017-03-10] MEDS: Meropenem 1 Gm/100 mL NS Minibag Plus IV SCH ×4 (02:18→14:31)
[2017-03-10] MEDS: Cholestyramine Resin Powder 4 Gm Packet PO SCH ×3 (04:53→17:00)
[2017-03-10 05:18] LABS: Mean Corpuscular Hemoglobin 29.3 pg (27.0-35.0); Platelet Count 168 bil/L (150-400)
[2017-03-10 05:34] LABS: BASOPHILS % (AUTO) 0 % (0-3); EOSINOPHILS % (AUTO) 3 % (0-5); MONOCYTES % (AUTO) 10 % (4-12); NEUTROPHILS % (AUTO) 60 % (40-74)
[2017-03-10 05:38] LABS: Magnesium 1.8 mg/dL (1.6-2.6); Phosphorus 1.4 mg/dL (2.5-4.9)
--- NOTE | 2017-03-10 05:40 | NUR ---
Respiratory Pt on 2L NC throughout shift, SpO2 with poor pleth approx. 80s; finger probe replaced and true oxygen saturation approx. 96% throughout night. Labored breathing and accessory muscle use upon observation but pt reports breathing status at baseline at time of assessment. Nebulizer treatments requested x3 this shift. AOX3, independent in bed mobility, denies pain, VSS, tele SR 90s with PVCs. [place] and FMS draining to gravity; low FMS output noted this shift.
[2017-03-10] MEDS: Albuterol-Ipratropium 3 mL Inhalation Solution NEB SCH ×4 (07:56→19:30)
[2017-03-10] MEDS ORDERED: Potassium Phos (mMol) Inj 30 MMOL in Dextrose 5% 500 ML IV ONE (08:15)
[2017-03-10] MEDS ORDERED: Potassium Chloride Inj 40 MEQ in 0.9% Sodium Chloride 1,000 ML IV SCH ×2 (08:15→14:15)
[2017-03-10] MEDS: Sodium Chloride LOK Flush 10 mL Syringe IVFLUSH SCH ×2 (08:30→17:04)
[2017-03-10] MEDS ORDERED: KCl 40 mEq/100 mL (CENTRAL) 40 MEQ in IV Premix 1 EACH IV ONE (08:30)
[2017-03-10] MEDS ORDERED: 0.9% Sodium Chloride 1,000 ML IV SCH (08:30)
[2017-03-10] MEDS: Pantoprazole 40 mg ER24 Tablet PO SCH ×2 (08:45→17:03)
[2017-03-10] MEDS: Heparin 5,000 Unit/mL Inj SUBQ SCH ×2 (08:48→17:03)
[2017-03-10 11:12] LABS: Fecal Osmolality 247 mOsmol/kg (Not Estab.)
--- NOTE | 2017-03-10 13:28 | PCM.PNNEPH ---
Sherry Pham DO 03/10/17 1328: Subjective Date of Service Mar 10, 2017 Subjective Patient remains afebrile with no acute events overnight. Etiology of diarrhea remains unknown. Per nursing, oxygen sats maintained in 90s but patient using accessory muscles to breath. Patient continues to report breathing is at baseline. He denies chest pain, fever, chills, nausea, vomiting, or abdominal pain. Abdominal tenderness to palpation improved from yesterday and patient denies nausea, vomiting, or night sweats. Exam Vital Signs Vital Sign - Last Date Time Temp Pulse Resp B/P Pulse Ox O2 Delivery O2 Flow Rate FiO2 03/10/17 11:21 86 26 97 Nasal Cannula 2.50 03/10/17 08:49 36.4 115/58 Intake and Output 03/09/17 03/09/17 03/10/17 Cumulative From/Thru 15:00 23:00 07:00 03/07/17 12:27 - 03/10/17 06:11 Intake Total 5855 ml 2496 ml 88570 ml Output Total 2100 ml 2300 ml 42376 ml Balance 3755 ml 196 ml 8387 ml Intake Oral 2050 ml 600 ml 4460 ml IV Total 3805 ml 1896 ml 03065 ml Output Urine Total 2000 ml 2300 ml 6680 ml Stool Total 50 ml 2650 ml Gastric Drainage Total 50 ml 1600 ml # Bowel Movements 1 Exam General: Chronically ill-appearing elderly male, appears uncomfortable with labored breathing but in no acute distress HEENT: Normocephalic, atraumatic. PERRLA, no scleral icterus, decreased skin turgor, oral mucosa dry. Cardiovascular: Regular rate and rhythm with no murmurs, rubs, or gallops appreciated Pulmonary: Clear to auscultation bilaterally with no crackles, wheezes, or rhonchi. Abdomen: Soft, moderately distended with diffuse/mild tenderness to palpation. No rebound or guarding. Bowel tones present. Extremities: Warm, dry with distal pulses intact, no cyanosis or edema Skin: No rashes or ulcerations, decreased skin turgor. Neurological: Cranial nerves grossly intact. No focal motor/sensory deficit appreciated IVs and Medications Medications Reviewed: Medications were reviewed in detail Lab and Diagnostics Laboratory Tests Test 03/10/17 05:07 White Blood Count 9.4th/mm3 (3.8-10.1) Red Blood Count 4.20mil/mm3 (4.40-5.80) Hemoglobin 12.3g/dL (13.8-17.2) Hematocrit 34.0% (41.0-50.0) Mean Corpuscular Volume 81.0fL (81-100) Mean Corpuscular Hemoglobin 29.3pg (27.0-35.0) Mean Corpuscular Hemoglobin Concent 36.2% (32.0-37.0) Red Cell Distribution Width 14.5% (12.3-15.4) Platelet Count 168bil/L (150-400) Neutrophils (%) (Auto) 60% (40-74) Lymphocytes (%) (Auto) 25% (14-46) Monocytes (%) (Auto) 10% (4-12) Eosinophils (%) (Auto) 3% (0-5) Basophils (%) (Auto) 0% (0-3) Band Neutrophils % 2% (1-5) Sodium Level 137mEq/L (134-144) Potassium Level 3.2mEq/L (3.5-5.2) Chloride Level 105mEq/L (97-108) Carbon Dioxide Level 21mmol/L (18-29) Blood Urea Nitrogen 25mg/dL (8-27) Creatinine 0.74mg/dL (0.76-1.27) Estimat Glomerular Filtration Rate 110mL/min (>59) Glucose Level 97mg/dL (60-99) Calcium Level 8.1mg/dL (8.5-10.1) Phosphorus Level 1.4mg/dL (2.5-4.9) Magnesium Level 1.8mg/dL (1.6-2.6) Total Bilirubin 0.3mg/dL (0.0-1.2) Aspartate Amino Transf (AST/SGOT) 28U/L (0-50) Alanine Aminotransferase (ALT/SGPT) 29U/L (0-44) Alkaline Phosphatase 85U/L (25-160) Total Protein 4.5g/dL (6.4-8.4) Albumin 2.6g/dL (3.4-5.0) Result Diagram: 03/10/17 0507 03/10/17 0507 Microbiology 03/08/17 Stool WBC, FOBT- No WBCs seen, Positive for occult blood. 03/07/17 Blood Culture -no growth to date 03/08/17 Resp viral PCR- negative 03/08/17 CMV IgG, IgM- negative 03/08/17 HIV nonreactive 03/08/17 Strongyloides Ab- negative 03/09/17 C. difficile DNA Amplification- negative . X-Rays, CTs and MRIs Chest x-ray IMPRESSION: Source of dyspnea and weakness is not found. No pneumonia seen. Dictated by: Wilmar Kim M.D. on 03/07/2017 at 13:18 Abdomen pelvis/CT 1. Multiple dilated loops of small and large bowel with scattered air-fluid levels but no focal transition point. The findings again likely represent an ileus or gastroenteritis. No definite evidence of obstruction. 2. Pneumobilia redemonstrated likely related to prior surgery or other intervention. 3. Hypoattenuation of the liver compatible with steatosis. 4. Mild anterior compression deformity of L1 vertebral body appears unchanged. Dictated by: Colt Childers M.D. on 03/07/2017 at 14:[address] 1. 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 2. Mild ventricular prominence is likely related to cerebral volume loss given the associated prominence of the sulci. A component of hydrocephalus cannot be fully excluded. 3. Slight rightward midline shift by approximately 3 mm is nonspecific. No definite evidence of uncal herniation. Further evaluation may be obtained with an MRI if clinically indicated. Findings discussed with Dr. Enrique on 03/07/17 at 2:20 PM. Dictated by: Colt Childers M.D. on 03/07/2017 at 14:14 12-lead ECG EKG with sinus tachycardia and low voltage; indiscriminate t-wave depression not significantly different from prior Plan Impression 76-year-old male with a history of COPD, hypertension, tobacco abuse, hyperlipidemia, sleep apnea and rheumatoid arthritis who presented to the emergency department with a three week history of diarrhea, fatigue and vomiting. 1. Acute kidney injury secondary to severe intravascular volume depletion- Improving. 2. Severe hypokalemia secondary to GI loss and increased RAAS due to severe dehydration. 3. Mixed anion gap metabolic acidosis and metabolic alkalosis. 4. Hypophosphatemia 5. Hypovolemic hyponatremia- resolved with fluids. 6. Chronic diarrhea, onset three weeks ago, associated with vomiting, poor appetite. 7. Chronic obstructive pulmonary disease. Plan: -Continue IV fluids, NS with 40meq KCl- at 100mls/hr. -Decreased stool output via FMS tube in last 24hrs with Imodium and cholestyramine. -Despite improvement in diarrhea with Imodium and cholestyramine, will continue with aggressive potassium replacement due to the severity of hypokalemia and extent of diarrhea/GI loss. -Patient will likely need 200meq of potassium replacement per day. -Repeat BMP in morning -Replete phosphorus, magnesium as needed. Kal Ochoa MD 03/10/17 1418: Exam Lab and Diagnostics Result Diagram: 03/10/17 7897 03/10/17 0523 Plan Impression Patient was seen and examined. Case discussed with resident. NS 100ml+KCL 40 meq 100 mL/hr x 1 L. KPO4 30 mmol IVPB. Repeat BMP in am. Vickie Powell MD. Pg [phone]. Sherry Pham DO Mar 10, 2017 13:28 Kal Ochoa MD Mar 10, 2017 14:18
[2017-03-10] MEDS ORDERED: Vancomycin Serum Trough XX ONE (14:00)
--- NOTE | 2017-03-10 14:21 | PROG NOTE ---
[address] [address] PROGRESS NOTE PATIENT: CARRINGTON MARMOLEJO V : 1940 MR#: [id number] ADMIT: 03/07/2017 JOB ID: [id number] DATE: 03/10/2017 REASON FOR FOLLOWUP: Severe diarrhea complicated by renal failure. INTERVAL HISTORY: Overnight, the patient has dramatically improved. His diarrhea has essentially resolved with cholestyramine and antimotility agents. He has no fever, no chills today, and notes he is starting to feel somewhat better. Many of his lab abnormalities have dramatically improved over the past 24-48 hours. At this point, as mentioned, no fevers, no chills. No more diarrhea. No abdominal pain and no pulmonary symptoms. PHYSICAL EXAMINATION: Reveals an afebrile gentleman. Pulse 86, respiratory rate is the mid 20s, blood pressure 115/58. He is in no acute distress, sitting up at the bedside commode. Saturating well on room air. Alert and oriented. Oral cavity negative. Lungs clear. Abdomen soft and nontender. A few crackles noted at the bases bilaterally. Bowel sounds are hyperactive. No focal abdominal tenderness. No skin rash. LABORATORY DATA: Include remarkably improved numbers. The white count has gone from 32,000 to 9000 in 3 days. His creatinine has gone from 2 basically down to 0.74. His CMV serologies have come back negative. HIV negative. Strongyloides negative. Stool fecal white cells negative. Stool multiplex PCR negative. MRSA screen negative. Blood culture negative. C. difficile negative twice. IMPRESSION: This patient presented with longstanding diarrhea which was leading to renal failure, electrolyte abnormalities, and an overall life threatening illness with leukemoid reaction and a white count about 30,000. We still have no etiology for this, but the patient is dramatically improved. It seems clear this was not due to Clostridium difficile, and two Clostridium difficiles were NG. We do not have any positive culture or serology to explain what has happened, however. RECOMMENDATIONS: 1. I agree with stopping the IV vancomycin, azithromycin, and oral vancomycin. 2. I would continue meropenem cautiously through the weekend. This is a very broad spectrum antibiotic, and I have no idea what we are treating, but he has improved dramatically and has an almost septic like picture on arrival, so I think it is reasonable to continue that for at least the next couple days with the plan towards just stopping it on day six or seven which would be Monday or Monday.
--- NOTE | 2017-03-10 16:19 | PCM.PNMED ---
Subjective Date of Service Mar 10, 2017 Subjective Patient continues to improve. Appetite improved and he is more conversive. More willing to get out of bed. Nausea has resolved and diarrhea has drastically improved. Exam Vital Signs Vital Sign - Last Date Time Temp Pulse Resp B/P Pulse Ox O2 Delivery O2 Flow Rate FiO2 03/10/17 11:21 86 26 97 Nasal Cannula 2.50 03/10/17 08:49 36.4 115/58 Intake and Output 03/09/17 03/09/17 03/10/17 Cumulative From/Thru 15:00 23:00 07:00 03/07/17 12:27 - 03/10/17 06:11 Intake Total 5855 ml 2496 ml 57396 ml Output Total 2100 ml 2300 ml 79480 ml Balance 3755 ml 196 ml 8387 ml Intake Oral 2050 ml 600 ml 4460 ml IV Total 3805 ml 1896 ml 05451 ml Output Urine Total 2000 ml 2300 ml 6680 ml Stool Total 50 ml 2650 ml Gastric Drainage Total 50 ml 1600 ml # Bowel Movements 1 Exam Gen.: mentation improved today Cardia: Regular rhythm and tachycardia, no murmurs Respiratory: CTA bilaterally though distant; wheezing Abdomen: mildly distended, obese, non-tender Extremities: pulses intact IVs and Medications Medications Reviewed: Medications were reviewed in detail Lab and Diagnostics Result Diagram: 03/10/17 0507 03/10/17 0507 Microbiology 03/08/17 Stool WBC, FOBT- No WBCs seen, Positive for occult blood. 03/07/17 Blood Culture -no growth to date 03/08/17 Resp viral PCR- negative 03/08/17 CMV IgG, IgM- negative 03/08/17 HIV nonreactive 03/08/17 Strongyloides Ab- negative 03/09/17 C. difficile DNA Amplification- negative . X-Rays, CTs and MRIs Chest x-ray IMPRESSION: Source of dyspnea and weakness is not found. No pneumonia seen. Dictated by: Wilmar Kim M.D. on 03/07/2017 at 13:18 Abdomen pelvis/CT 1. Multiple dilated loops of small and large bowel with scattered air-fluid levels but no focal transition point. The findings again likely represent an ileus or gastroenteritis. No definite evidence of obstruction. 2. Pneumobilia redemonstrated likely related to prior surgery or other intervention. 3. Hypoattenuation of the liver compatible with steatosis. 4. Mild anterior compression deformity of L1 vertebral body appears unchanged. Dictated by: Colt Childers M.D. on 03/07/2017 at 14:[address] 1. 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 2. Mild ventricular prominence is likely related to cerebral volume loss given the associated prominence of the sulci. A component of hydrocephalus cannot be fully excluded. 3. Slight rightward midline shift by approximately 3 mm is nonspecific. No definite evidence of uncal herniation. Further evaluation may be obtained with an MRI if clinically indicated. Findings discussed with Dr. Enrique on 03/07/17 at 2:20 PM. Dictated by: Colt Childers M.D. on 03/07/2017 at 14:14 12-lead ECG EKG with sinus tachycardia and low voltage; indiscriminate t-wave depression not significantly different from prior Assessment & Plan 76-year-old male with a history of COPD and ANA who presents with 3 weeks of diarrhea in 1 week of nonbloody emesis and severe weakness. Patient was found hunched over this table but responsive. Acute hypoxic respiratory failure: Present admission; improved - does not wear O2 at home; breathing with accessory muscles but saturating ok on O2 NC - ABG in chart does not show hypercapnia or hypoxia - Requiring 2L NC to maintain sats > 88% - Maintain sats between 88 and 92; O2 nasal cannula Severe Hypokalemia; present on admission; improved -Due to vomiting/diarrhea; EKG low voltage but no sig change from baseline; currently 3.2 -Potassium 1.8 on admission; mag of 1.6 -Continue repletion Persistent sinus tachycardia tachypnea; present on admission; controlled -Patient presented in sepsis and thought to be initial cause; intermittent runs of PVC's that are non-sustained likely related to hypokalemia -Current cause of tachy unknown -Continue with fluid hydration -Metoprolol 25mg PO BID; will discharge on this medication as well Weakness; present on admission; ongoing -Palliative medicine consulted; Physical therapy assessed and recommends snf -Up and out of bed -PT working with him Diarrhea, possibly infectious vs inflammatory; present on admission; resolving -Outpatient diarrhea 5x daily for 3 weeks; negative PCR stool -Recent abx 2 months ago for COPD exacerbation -Stool WBC, crypto, pcr c-diff, etc pending -Stool osmol, na, k, etc pending -GI consulted and discussed with Dr. Calloway -Loperamide and cholestyramine discontinued today -Discussed with patient need for biopsy and Dr. Calloway ready for flex sig this afternoon, however, patient declined. Discussed current recs for colonoscopy as outpatient Severe acute hyponatremia second to hypovolemia with encephalopathy; present on admission; resolving -Patient presents physically dehydrated with history of severe nausea and vomiting and diarrhea -Labs intermittently erroneous -Continuing NS at 125ml/hr with K -Change BMP's to daily SIRS with unknown source; present on admission; resolving -tachycardic, tachypneic, with leukocytosis; source possibly GI, although this could be due to severe dehydration -denies systemic symptoms of infection except for diarrhea and vomiting -Initially treated with Vanco IV/PO and meropenem; currently only on meropenem which will stop in 2 days -started on meropenem; held vanc as he has no hx of MRSA -Bcx and Ucx negative -MRSA positive; Stool PCR negative ? Ileus vs SBO vs enteritis; present on admission; stable -3 weeks of diarrhea with negative stool pcr; 1 week of emesis; not terribly convinced this is either ileus/sbo -Zofran for nausea; PPI IV -Heart healthy diet as tolerated -NG discontinued yesterday with no residual nausea Chronic COPD; present on admission; stable -Pt not currently hypercapnic; no complaint of increased cough; continues to be tachypneic -Continue home medications -Azithromycin discontinued today -Duonebs Q4WA -Resp PCR negative -ABG's within limits and expectations; non-acidemic Respiratory alkalosis with lactic acidosis; resolved -Presented with a lactic acid of 3.3 and anion gap of 25 -Fluids as above -Trend Q2 hr Acute kidney injury; present on admission; resolved -Creatinine on admission was 1.97; baseline is 0.7 -Due to severe volume depletion -Fluids as above Microcytic normochromic anemia; present on admission; stable -Iron studies in chart -Appears to be due to infection vs anemia of chronic disease Hypertension; stable -Patient currently volume depleted -restarted home atenolol tomorrow Obstructive sleep apnea; present on admission; stable -Need machine from home -O2 overnight Dispo: Will need at least 2 more days for IV antibiotics and to discuss plans for SNF vs home health Pain Evaluation: Adequate Pain Control Resuscitation Status: CPR: Attempt Resuscitation Attending Statement The patient was seen and examined together with Dr. Russell on 03/10/2017 and I agree with the history, exam and plan as outlined in the note above. . Presley Russell DO Mar 10, 2017 16:19 Lino Bucio MD Mar 11, 2017 16:41
--- NOTE | 2017-03-10 17:08 | NUR ---
O2 Needs Noticed the pt was staying in the high 90's. Titrated down from NC2L to RA, Currently on RA and sitting at the side of the bed and he is at 98%. Will continue to monitor.
--- NOTE | 2017-03-10 18:23 | PCM.PNMED ---
Subjective Date of Service Mar 10, 2017 Subjective He has no diarrhea and he declined to have endoscopy Exam Vital Signs Vital Sign - Last Date Time Temp Pulse Resp B/P Pulse Ox O2 Delivery O2 Flow Rate FiO2 03/10/17 17:00 Supplement Oxygen 03/10/17 16:29 36.7 60 22 139/86 91 1.00 Intake and Output 03/09/17 03/09/17 03/10/17 Cumulative From/Thru 15:00 23:00 07:00 03/07/17 12:27 - 03/10/17 06:11 Intake Total 5855 ml 2496 ml 80359 ml Output Total 2100 ml 2300 ml 85061 ml Balance 3755 ml 196 ml 8387 ml Intake Oral 2050 ml 600 ml 4460 ml IV Total 3805 ml 1896 ml 32640 ml Output Urine Total 2000 ml 2300 ml 6680 ml Stool Total 50 ml 2650 ml Gastric Drainage Total 50 ml 1600 ml # Bowel Movements 1 Exam Alert comfortable HEENT no icterus LUNG diffuse mild wheezing CV Tachy S1S2 ABD soft moderately distended nabs Lab and Diagnostics Result Diagram: 03/10/17 0507 03/10/17 0507 Microbiology 03/08/17 Stool WBC, FOBT- No WBCs seen, Positive for occult blood. 03/07/17 Blood Culture -no growth to date 03/08/17 Resp viral PCR- negative 03/08/17 CMV IgG, IgM- negative 03/08/17 HIV nonreactive 03/08/17 Strongyloides Ab- negative 03/09/17 C. difficile DNA Amplification- negative . X-Rays, CTs and MRIs Chest x-ray IMPRESSION: Source of dyspnea and weakness is not found. No pneumonia seen. Dictated by: Wilmar Kim M.D. on 03/07/2017 at 13:18 Abdomen pelvis/CT 1. Multiple dilated loops of small and large bowel with scattered air-fluid levels but no focal transition point. The findings again likely represent an ileus or gastroenteritis. No definite evidence of obstruction. 2. Pneumobilia redemonstrated likely related to prior surgery or other intervention. 3. Hypoattenuation of the liver compatible with steatosis. 4. Mild anterior compression deformity of L1 vertebral body appears unchanged. Dictated by: Colt Childers M.D. on 03/07/2017 at 14:[address] 1. 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 2. Mild ventricular prominence is likely related to cerebral volume loss given the associated prominence of the sulci. A component of hydrocephalus cannot be fully excluded. 3. Slight rightward midline shift by approximately 3 mm is nonspecific. No definite evidence of uncal herniation. Further evaluation may be obtained with an MRI if clinically indicated. Findings discussed with Dr. Enrique on 03/07/17 at 2:20 PM. Dictated by: Colt Childers M.D. on 03/07/2017 at 14:14 12-lead ECG EKG with sinus tachycardia and low voltage; indiscriminate t-wave depression not significantly different from prior Assessment & Plan 76-year-old male with a history of COPD and ANA who presents with 3 weeks of diarrhea in 1 week of nonbloody emesis and severe weakness. Patient was found hunched over this table but responsive. The diarrhea has improved on cholestyramine and Imodium. In fact, he feels he needs to go have BM but now nothing is coming out. We were going to do endoscopy but patient declined. Now there is a question there could also be a ileus per CT on admission. I think he maybe constipated now. If no BM by tomorrow am, would start stool softners and or enemas and abd X ray to rule out ileus. Stop imodium and cholestramine. Resuscitation Status: CPR: Attempt Resuscitation Omid Calloway MD Mar 10, 2017 18:23
[2017-03-11] VITALS (13 sets, daily range): BP systolic 105–125; BP diastolic 63–78; PULSE 87–110; RESP 18–26; O2SAT 93–99
[2017-03-11] MEDS: Cholestyramine Resin Powder 4 Gm Packet PO SCH ×5 (00:05→22:06)
[2017-03-11] MEDS: Sodium Chloride LOK Flush 10 mL Syringe IVFLUSH SCH ×3 (00:11→17:16)
[2017-03-11] MEDS: Heparin 5,000 Unit/mL Inj SUBQ SCH ×3 (00:11→17:16)
[2017-03-11] MEDS: Meropenem 1 Gm/100 mL NS Minibag Plus IV SCH ×4 (02:52→15:15)
[2017-03-11] MEDS: Albuterol-Ipratropium 3 mL Inhalation Solution NEB PRN (03:13)
[2017-03-11 03:29] LABS: BASOPHILS % (AUTO) 1.2 % (0-3); EOSINOPHILS % (AUTO) 2.7 % (0-5); MONOCYTES % (AUTO) 10.2 % (4-12); Mean Corpuscular Hemoglobin 29.5 pg (27.0-35.0); Mean Corpuscular Volume 82.9 fL (81-100); NEUTROPHILS % (AUTO) 52.7 % (40-74); Platelet Count 175 bil/L (150-400)
[2017-03-11 03:44] LABS: INR 0.99 ratio
[2017-03-11 04:21] LABS: Magnesium 1.6 mg/dL (1.6-2.6); Phosphorus 2.1 mg/dL (2.5-4.9)
--- NOTE | 2017-03-11 05:44 | NUR ---
Tele/O2 Not on tele, O2 sat 88-94, very SOB to transfer to [facility], Lung sounds distant, Paged night resident about lung sounds, ordered CXR , results to be determined, NS @ TKO, ABX as ordered, 2 L O2 per NC. Doctors aware of respiratory status, WCTM.
[2017-03-11] MEDS: Albuterol-Ipratropium 3 mL Inhalation Solution NEB SCH ×5 (06:07→20:41)
[2017-03-11] MEDS ORDERED: Potassium Phos (mEq) Inj 20 MEQ in Dextrose 5% 250 ML IV ONE (07:30)
--- NOTE | 2017-03-11 08:36 | DRSVH ---
PROCEDURE: X-RAY CHEST ONE VIEW, PORTABLE ([id number]) INDICATIONS: SOB TECHNIQUE: One view of the chest was acquired. COMPARISON: [facility], CR, XR CHEST 1VW (PORTABLE), 03/07/2017, 12:37. FINDINGS: Surgical changes and devices: PICC line projects in the distal SVC via a right-sided approach. Lungs and pleura: No pleural effusions or pneumothorax. Increasing opacification noted in the right lung base which could represent atelectasis versus developing pneumonia. Mediastinum: Mediastinal contours appear normal. Heart size is normal. Bones and chest wall: No suspicious bony lesions. Overlying soft tissues appear unremarkable. IMPRESSION: Subtle right basilar increased opacification consistent with atelectasis versus developin g pneumonia. Dictated by: Svetlana Ngo MD, PhD on 03/11/2017 at 8:34 Approved by: Svetlana Ngo MD, PhD on 03/11/2017 at 8:35
[2017-03-11] MEDS: Pantoprazole 40 mg ER24 Tablet PO SCH ×2 (08:44→17:16)
--- NOTE | 2017-03-11 12:47 | PCM.PNMED ---
Subjective Date of Service Mar 11, 2017 Subjective Mr. Dorman states that he continues to feel better day by day. He has a robust appetite at breakfast, and expressed willingness to increase his physical activity today. He has no active complaints at this time. No significant overnight events Comprehensive ROS negative except as listed above. Exam Vital Signs Vital Sign - Last Date Time Temp Pulse Resp B/P Pulse Ox O2 Delivery O2 Flow Rate FiO2 03/11/17 12:20 36.5 93 23 111/65 95 Nasal Cannula 1.50 Intake and Output 03/10/17 03/10/17 03/11/17 Cumulative From/Thru 15:00 23:00 07:00 03/07/17 12:27 - 03/11/17 06:17 Intake Total 2874 ml 855 ml 30036 ml Output Total 1175 ml 1625 ml 79086 ml Balance 1699 ml -770 ml 9316 ml Intake Oral 1200 ml 500 ml 6160 ml IV Total 1674 ml 355 ml 03125 ml Output Urine Total 1100 ml 1625 ml 9405 ml Stool Total 75 ml 2725 ml Gastric Drainage Total 1600 ml # Voids 2 2 # Bowel Movements 1 Exam Gen: A/O x3 elderly gentleman in NAD Neck: Supple, non tender, Full ROM HEENT: PERRL, EOMI, no scleral icterus, no conjunctival pallor, mucous membranes moist CV: RRR, no murmurs rubs or gallops Resp: Lungs CTA BL, no wheezing rales or rhonchi Abd: Soft, non tender, no organomegaly Extr: No clubbing cyanosis or edema, peripheral pulses intact Neuro: CN 2-12 grossly intact, no focal neurologic deficit IVs and Medications IV Fluids 100 ml delivered with IV meds Medications Reviewed: Medications were reviewed in detail Lab and Diagnostics Item Value Date Time Red Blood Count 4.03 mil/mm3 L 03/11/17 0310 Mean Corpuscular Volume 82.9 fL 03/11/17 0310 Mean Corpuscular Hemoglobin 29.5 pg 03/11/17 031 Mean Corpuscular Hemoglobin Concent 35.6 % 03/11/17 031 Red Cell Distribution Width 14.9 % 03/11/17 0310 Neutrophils (%) (Auto) 52.7 % 03/11/17 0310 Lymphocytes (%) (Auto) 22.7 % 03/11/17 031 Monocytes (%) (Auto) 10.2 % 03/11/17 031 Eosinophils (%) (Auto) 2.7 % 03/11/17 031 Basophils (%) (Auto) 1.2 % 03/11/17 031 Estimat Glomerular Filtration Rate 134 mL/min 03/11/17 031 Calcium Level 8.8 mg/dL 03/11/17 031 Phosphorus Level 2.1 mg/dL L 03/11/17 031 Magnesium Level 1.6 mg/dL 03/11/17 031 Total Bilirubin 0.3 mg/dL 03/11/17 031 Aspartate Amino Transf (AST/SGOT) 26 U/L 03/11/17 031 Alanine Aminotransferase (ALT/SGPT) 29 U/L 03/11/17 031 Alkaline Phosphatase 88 U/L 03/11/17309 Total Protein 4.5 g/dL L 03/11/17 031 Albumin 2.6 g/dL L 03/11/17 031 Procalcitonin 0.15 ng/mL H 03/11/17309 Result Diagram: 03/11/17 03103/11/17 031 Microbiology 03/08/17 Stool WBC, FOBT- No WBCs seen, Positive for occult blood. 03/07/17 Blood Culture -no growth to date 03/08/17 Resp viral PCR- negative 03/08/17 CMV IgG, IgM- negative 03/08/17 HIV nonreactive 03/08/17 Strongyloides Ab- negative 03/09/17 C. difficile DNA Amplification- negative . X-Rays, CTs and MRIs Chest x-ray IMPRESSION: Source of dyspnea and weakness is not found. No pneumonia seen. Dictated by: Wilmar Kim M.D. on 03/07/2017 at 13:18 Abdomen pelvis/CT 1. Multiple dilated loops of small and large bowel with scattered air-fluid levels but no focal transition point. The findings again likely represent an ileus or gastroenteritis. No definite evidence of obstruction. 2. Pneumobilia redemonstrated likely related to prior surgery or other intervention. 3. Hypoattenuation of the liver compatible with steatosis. 4. Mild anterior compression deformity of L1 vertebral body appears unchanged. Dictated by: Colt Childers M.D. on 03/07/2017 at 14:[address] 1. 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 2. Mild ventricular prominence is likely related to cerebral volume loss given the associated prominence of the sulci. A component of hydrocephalus cannot be fully excluded. 3. Slight rightward midline shift by approximately 3 mm is nonspecific. No definite evidence of uncal herniation. Further evaluation may be obtained with an MRI if clinically indicated. Findings discussed with Dr. Enrique on 03/07/17 at 2:20 PM. Dictated by: Colt Childers M.D. on 03/07/2017 at 14:14 12-lead ECG EKG with sinus tachycardia and low voltage; indiscriminate t-wave depression not significantly different from prior Cardiac Echo Impressions Interpretation Summary The study quality was technically difficult. The left ventricular ejection fraction is grossly normal. The right ventricle is grossly normal size. There is no significant valvular heart disease. Electronically signed by: Micky Brantley on Reading Physician:03/08/2017 04:24 PM . Assessment & Plan 76-year-old male with a history of COPD and ANA who presents with 3 weeks of diarrhea in 1 week of nonbloody emesis and severe weakness. Patient was found hunched over this table but responsive. Patient with likely occult infectious process that has yet to be fully elucidated, improving clinically on IV Meropenem which will continued until 03/13/17 after which he will likely DC Acute hypoxic respiratory failure: Present admission; improved - does not wear O2 at home; breathing with accessory muscles but saturating ok on O2 NC - ABG in chart does not show hypercapnia or hypoxia - Requiring 2L NC to maintain sats > 88% - Maintain sats between 88 and 92; O2 nasal cannula Severe Hypokalemia; present on admission; improved -Due to vomiting/diarrhea; EKG low voltage but no sig change from baseline; currently 3.2 -Potassium 1.8 on admission; mag of 1.6 on admission -Continue repletion Persistent sinus tachycardia tachypnea; present on admission; controlled -Patient presented in sepsis and thought to be initial cause; intermittent runs of PVC's that are non-sustained likely related to hypokalemia -Current cause of tachy unknown -Continue with fluid hydration -Metoprolol 25mg PO BID; will discharge on this medication as well Weakness; present on admission; ongoing -Palliative medicine consulted; Physical therapy assessed and recommends snf, patient adamantly declines -Up and out of bed -PT working with him Diarrhea, possibly infectious vs inflammatory; present on admission; resolving -Outpatient diarrhea 5x daily for 3 weeks; negative PCR stool -Recent abx 2 months ago for COPD exacerbation -Stool WBC, crypto, pcr c-diff, etc pending -Stool osmol, na, k, etc pending -GI consulted and discussed with Dr. Calloway -Loperamide and cholestyramine discontinued -Discussed with patient need for biopsy and Dr. Calloway ready for flex sig this, however, patient declined. Discussed current recs for colonoscopy as outpatient Severe acute hyponatremia second to hypovolemia with encephalopathy; present on admission; resolving -Patient presents physically dehydrated with history of severe nausea and vomiting and diarrhea -Labs intermittently erroneous -Continuing NS at 125ml/hr with K -Change BMP's to daily SIRS with unknown source; present on admission; resolving -tachycardic, tachypneic, with leukocytosis; source possibly GI, although this could be due to severe dehydration -denies systemic symptoms of infection except for diarrhea and vomiting -Initially treated with Vanco IV/PO and meropenem; currently only on meropenem which will stop on 03/13/17 -started on meropenem; held vanc as he has no hx of MRSA -Bcx and Ucx negative -MRSA positive; Stool PCR negative Questionable Ileus, SBO or enteritis; present on admission; stable -3 weeks of diarrhea with negative stool pcr; 1 week of emesis; not terribly convinced this is either ileus/sbo -Zofran for nausea; PPI IV -Heart healthy diet as tolerated -NG discontinued with no residual nausea Chronic COPD; present on admission; stable -Continue home medications -Azithromycin discontinued -Duonebs Q4WA -Resp PCR negative -ABG's within limits and expectations; non-acidemic Respiratory alkalosis with lactic acidosis; resolved -Presented with a lactic acid of 3.3 and anion gap of 25 -Fluids as above -Trend Q2 hr Acute kidney injury; present on admission; resolved -Creatinine on admission was 1.97; baseline is 0.7 -Due to severe volume depletion -Fluids as above Microcytic normochromic anemia; present on admission; stable -Iron studies in chart -Appears to be due to infection vs anemia of chronic disease Hypertension; stable -Patient currently volume depleted Obstructive sleep apnea; present on admission; stable -Need machine from home -O2 overnight Disposition: Patient will continue current course of antibiotics until 03/13/17, at which time he will discharge, the destination of which is uncertain at this point, PT recommends SNF however patient is steadfast in his refusal of this recommendation, will attempt to coordinate an alternative solution such as home health prior to discharge. Pain Evaluation: Adequate Pain Control GI Prophylaxis: Proton Pump Inhibitor VTE Prophylaxis: Sub-Q Heparin (Unfractionated) Resuscitation Status: CPR: Attempt Resuscitation Rasheed Perea DO Mar 11, 2017 12:47
--- NOTE | 2017-03-11 13:39 | PCM.PNNEPH ---
Subjective Date of Service Mar 11, 2017 Subjective He is doing better. Serum creatinine has been normalized. Appetite has come back. Exam Vital Signs Vital Sign - Last Date Time Temp Pulse Resp B/P Pulse Ox O2 Delivery O2 Flow Rate FiO2 03/11/17 12:20 36.5 93 23 111/65 95 Nasal Cannula 1.50 Intake and Output 03/10/17 03/10/17 03/11/17 Cumulative From/Thru 15:00 23:00 07:00 03/07/17 12:27 - 03/11/17 06:17 Intake Total 2874 ml 855 ml 98709 ml Output Total 1175 ml 1625 ml 42759 ml Balance 1699 ml -770 ml 9316 ml Intake Oral 1200 ml 500 ml 6160 ml IV Total 1674 ml 355 ml 72172 ml Output Urine Total 1100 ml 1625 ml 9405 ml Stool Total 75 ml 2725 ml Gastric Drainage Total 1600 ml # Voids 2 2 # Bowel Movements 1 Exam General: AAOx3, NAD. HEENT: Normocephalic, atraumatic. PERRLA, no scleral icterus. Cardiovascular: Regular rate and rhythm with no murmurs, rubs, or gallops appreciated Pulmonary: Clear to auscultation bilaterally with no crackles, wheezes, or rhonchi. Abdomen: Soft, mild distension. No rebound or guarding. Bowel tones present. Extremities: Warm, dry with distal pulses intact, no cyanosis or edema Neurological: Cranial nerves grossly intact. No focal motor/sensory deficit appreciated Lab and Diagnostics Result Diagram: 03/11/17 0310 03/11/17 0310 Microbiology 03/08/17 Stool WBC, FOBT- No WBCs seen, Positive for occult blood. 03/07/17 Blood Culture -no growth to date 03/08/17 Resp viral PCR- negative 03/08/17 CMV IgG, IgM- negative 03/08/17 HIV nonreactive 03/08/17 Strongyloides Ab- negative 03/09/17 C. difficile DNA Amplification- negative . X-Rays, CTs and MRIs Chest x-ray IMPRESSION: Source of dyspnea and weakness is not found. No pneumonia seen. Dictated by: Wilmar Kim M.D. on 03/07/2017 at 13:18 Abdomen pelvis/CT 1. Multiple dilated loops of small and large bowel with scattered air-fluid levels but no focal transition point. The findings again likely represent an ileus or gastroenteritis. No definite evidence of obstruction. 2. Pneumobilia redemonstrated likely related to prior surgery or other intervention. 3. Hypoattenuation of the liver compatible with steatosis. 4. Mild anterior compression deformity of L1 vertebral body appears unchanged. Dictated by: Colt Childers M.D. on 03/07/2017 at 14:[address] 1. 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 2. Mild ventricular prominence is likely related to cerebral volume loss given the associated prominence of the sulci. A component of hydrocephalus cannot be fully excluded. 3. Slight rightward midline shift by approximately 3 mm is nonspecific. No definite evidence of uncal herniation. Further evaluation may be obtained with an MRI if clinically indicated. Findings discussed with Dr. Enrique on 03/07/17 at 2:20 PM. Dictated by: Colt Childers M.D. on 03/07/2017 at 14:14 12-lead ECG EKG with sinus tachycardia and low voltage; indiscriminate t-wave depression not significantly different from prior Cardiac Echo Impressions Interpretation Summary The study quality was technically difficult. The left ventricular ejection fraction is grossly normal. The right ventricle is grossly normal size. There is no significant valvular heart disease. Electronically signed by: Micky Brantley on Reading Physician:03/08/2017 04:24 PM . Plan Impression 1. Acute kidney injury secondary to severe intravascular volume depletion- resolved. 2. Severe hypokalemia secondary to GI loss and increased RAAS due to severe dehydration-resolved. 3. Hypophosphatemia, improving. 4. Hypovolemic hyponatremia- resolved. 5. Diarrhea. 6. Chronic obstructive pulmonary disease. Plan: Will sign off, please do not hesitate to call with any question or concern. Thank you for allowing me to participate in the care of your patient. Kal Ochoa MD Mar 11, 2017 13:39
--- NOTE | 2017-03-11 14:09 | NUR ---
Social Work: Continued Discharge Planning D: Pt discussed in am rounds. Pt is on day 4 of stay and not medically stable for discharge at this time. Pt is anticipated to require hospitalization through the weekend. Pt has been working with physical therapy with recommendation for skilled rehab via cabulance. CHIEF NURSING EXECUTIVE discussed this with MD and informed him that based on previous conversations with case management, pt is unwilling to go to rehab. MD has placed order for CHIEF NURSING EXECUTIVE to coordinate home health services for the patient. CHIEF NURSING EXECUTIVE met with pt at bedside to discuss discharge planning and MD order to arrange for home health services. HH CHOICE LIST PROVIDED. At this time, the pt states "I don't know what I will need at home yet because I am not allowed to walk" and is requesting CHIEF NURSING EXECUTIVE return on day of discharge to discuss his current needs. Pt continues to decline SNF recommendation. CHIEF NURSING EXECUTIVE informed pt that [employer] has been arranged and his first delivery will be on Monday. Pt is pleased and grateful to hear of this. A: Pt who lives at home, alone. P: Anticipate pt to discharge home via POV with home health for RN, PT, CHIEF NURSING EXECUTIVE with [employer] Whe[employer] delivery; CHIEF NURSING EXECUTIVE to follow up with pt on day of discharge (per pt's request) to coordinate discharge services. MIRNA Martínez
--- NOTE | 2017-03-11 15:29 | NUR ---
BM Medications We are to hold Questran Powder medication to see if the pt will produce stool. If no stool by the end of the day we are to give an enema. Pt had a sm liquid stool around 1400. Will inform MD and see if we are still to give an enema. Will pass along to fast food shift lead to hold powder if its still available on the [place] Addendum: 03/11/17 at 1745 by JO ANN COLEMAN RN Pt had another large BM around 1730.
--- NOTE | 2017-03-11 22:25 | NUR ---
Activity/transfer Pt independent to BSC with steady gait and wearing non slip socks. Denies chest pain/pressure, shortness of breath, and general discomfort. No telemetry noted at this time. Pt now in route via to [facility] in care of Anastasia Dunlap RN. VSS. Care ongoing.
--- NOTE | 2017-03-11 22:40 | NUR ---
Arrival onto unit Pt transferred from [facility] with EQUIPMENT PLANNER walking with steady gait, report given prior by BALDO Gupta. Denies Pain, SOB, VSS. Oriented to room, call light, etc. Pt expressed disapproval of being moved to another unit, and snapped at EQUIPMENT PLANNER about lack of bedside commode. Bedside commode was just out of his vision, but in the room. He apologized later to the EQUIPMENT PLANNER. Pt currently resting comfortably, frequent rounding continues.
[2017-03-12] VITALS (11 sets, daily range): BP systolic 112–127; BP diastolic 67–74; PULSE 91–112; RESP 16–22; O2SAT 93–97
[2017-03-12] MEDS: Sodium Chloride LOK Flush 10 mL Syringe IVFLUSH SCH ×3 (00:30→16:30)
[2017-03-12] MEDS: Heparin 5,000 Unit/mL Inj SUBQ SCH ×3 (01:13→17:28)
[2017-03-12] MEDS: Meropenem 1 Gm/100 mL NS Minibag Plus IV SCH ×4 (01:45→16:45)
[2017-03-12] MEDS: Cholestyramine Resin Powder 4 Gm Packet PO SCH ×4 (01:45→23:26)
[2017-03-12] MEDS: Albuterol-Ipratropium 3 mL Inhalation Solution NEB PRN ×4 (01:50→23:27)
[2017-03-12 06:42] LABS: BASOPHILS % (AUTO) 0.5 % (0-3); EOSINOPHILS % (AUTO) 2.9 % (0-5); MONOCYTES % (AUTO) 7.6 % (4-12); Mean Corpuscular Hemoglobin 29.2 pg (27.0-35.0); Mean Corpuscular Volume 82.6 fL (81-100); NEUTROPHILS % (AUTO) 52.7 % (40-74); Platelet Count 48 bil/L (150-400)
[2017-03-12 06:46] LABS: INR 1.05 ratio
--- NOTE | 2017-03-12 06:56 | NUR ---
O2 Pt on 2L NC throughout night, sats in mid-90's. Pt requested breathing treatments 2xs during shift. Pt uses call light appropriately and frequent rounding continues.
[2017-03-12 07:03] LABS: Magnesium 1.4 mg/dL (1.6-2.6)
--- NOTE | 2017-03-12 08:30 | NUR ---
O2 Pt sating 96% on 2L O2 via NC. Sats to be 88-92%. O2 removed, pt sating 93% on RA. Resting quietly, no complains of increased SOB. Will continue to monitor. Call light with in reach.
[2017-03-12] MEDS: Pantoprazole 40 mg ER24 Tablet PO SCH ×2 (08:36→17:27)
--- NOTE | 2017-03-12 09:00 | NUR ---
TASHIA signed. MIRNA Storey
[2017-03-12] MEDS: Albuterol-Ipratropium 3 mL Inhalation Solution NEB SCH ×3 (11:11→19:57)
[2017-03-12] MEDS ORDERED: Magnesium Sulf 4 Gm/100 mL H2O 4 GM in IV Premix 1 EACH IV ONE (12:25)
--- NOTE | 2017-03-12 12:26 | NUR ---
Social Work-readiness for discharge: Data:EMR Reviewed. Pt is on day 5 of hospitalization for sepsis per H&P. Pt is not medically stable anticipate 1-2 more days. PT continues to work with pt and recommend SNF placement. SW followed up with pt at bedside, SW role explained. SW explained recommendation of SNF, pt continues to decline this stating he will return home. SW followed up with further discussion around services, Choice list provided. Pt is agreeable to services and has no agency preference. SW referred to [facility] and made referral to [facility] for RN,PT, and SPARK TESTER. Prior SW has setup pt with meals on wheels to start on Monday. MD order received for services. SW placed a call to Ashley at [facility] and provided her with referral and access for RN,PT,and SPARK TESTER. Pt states his friend will be providing transport home. MD to complete F2F at discharge. SW will continue to follow. Assessment:Pt who would benefit from . Plan:Pt to discharge to home when medically stable via POV. Pt declining SNF. Referral made to [facility] for RN,Pt, and SPARK TESTER. MALCOM has setup [facility] Whe[employer] to start with pt on Monday. MD to complete F2F at discharge. SW will continue to follow. MIRNA Storey
--- NOTE | 2017-03-12 12:31 | NUR ---
choice list provided. MIRNA Storey
--- NOTE | 2017-03-12 18:19 | PCM.PNMED ---
Subjective Date of Service Mar 12, 2017 Subjective Patient denies chest pain, dyspnea, nausea or vomiting. He has come to the conclusion that probably he is not strong enough to go home and is agreeable to going to SNF now. Exam Vital Signs Vital Sign - Last Date Time Temp Pulse Resp B/P Pulse Ox O2 Delivery O2 Flow Rate FiO2 03/12/17 16:26 103 20 93 Room Air 03/12/17 14:27 36.9 112/70 2.00 Intake and Output 03/11/17 03/11/17 03/12/17 Cumulative From/Thru 15:00 23:00 07:00 03/07/17 12:27 - 03/12/17 06:28 Intake Total 322 ml 746 ml 47603 ml Output Total 1950 ml 87504 ml Balance 322 ml -1204 ml 8434 ml Intake Oral 600 ml 6760 ml IV Total 322 ml 146 ml 67797 ml Output Urine Total 1950 ml 95511 ml Stool Total 2725 ml Gastric Drainage Total 1600 ml # Voids 2 # Bowel Movements 9 1 11 Exam Gen.- A+ O 3 no apparent distress. Thin male sitting up in a chair Eyes- open conjunctiva clear, pupils equal nonicteric ENT- ears normal, nose normal Neck- supple/trach midline CVS- RRR no murmur or gallop Lungs CTA GI- NABS/NT soft Musc- moving 4 no obvious deformity Neuro- cranial nerves II through XII intact to gross examination, nonfocal Skin- warm and dry, no rashes/lesions/wounds noted Psych- pleasant and appropriate, Lab and Diagnostics Result Diagram: 03/12/17 0610 03/12/17 0610 Microbiology 03/08/17 Stool WBC, FOBT- No WBCs seen, Positive for occult blood. 03/07/17 Blood Culture -no growth to date 03/08/17 Resp viral PCR- negative 03/08/17 CMV IgG, IgM- negative 03/08/17 HIV nonreactive 03/08/17 Strongyloides Ab- negative 03/09/17 C. difficile DNA Amplification- negative . X-Rays, CTs and MRIs Chest x-ray IMPRESSION: Source of dyspnea and weakness is not found. No pneumonia seen. Dictated by: Wilmar Kim M.D. on 03/07/2017 at 13:18 Abdomen pelvis/CT 1. Multiple dilated loops of small and large bowel with scattered air-fluid levels but no focal transition point. The findings again likely represent an ileus or gastroenteritis. No definite evidence of obstruction. 2. Pneumobilia redemonstrated likely related to prior surgery or other intervention. 3. Hypoattenuation of the liver compatible with steatosis. 4. Mild anterior compression deformity of L1 vertebral body appears unchanged. Dictated by: Colt Childers M.D. on 03/07/2017 at 14:[address] 1. 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 2. Mild ventricular prominence is likely related to cerebral volume loss given the associated prominence of the sulci. A component of hydrocephalus cannot be fully excluded. 3. Slight rightward midline shift by approximately 3 mm is nonspecific. No definite evidence of uncal herniation. Further evaluation may be obtained with an MRI if clinically indicated. Findings discussed with Dr. Enrique on 03/07/17 at 2:20 PM. Dictated by: Colt Childers M.D. on 03/07/2017 at 14:14 12-lead ECG EKG with sinus tachycardia and low voltage; indiscriminate t-wave depression not significantly different from prior Cardiac Echo Impressions Interpretation Summary The study quality was technically difficult. The left ventricular ejection fraction is grossly normal. The right ventricle is grossly normal size. There is no significant valvular heart disease. Electronically signed by: Micky Brantley on Reading Physician:03/08/2017 04:24 PM . Assessment & Plan 76-year-old male admitted 03/07 found hunched over this table but responsive when his son came to check on him 03/12 I am meeting this medically complex patient for the first time today who has been in the intensive care unit for weak and was just transferred out. We are still managing some electrolyte abnormalities hypomagnesemia today. His diarrhea was pretty bad yesterday 9 episodes. Patient is agreeable to SNF placement. Nephrology signed off 03/11 most of the renal failure and electrolyte issues have been corrected. Infectious disease I believe is still following we will stop her earlier mom ertapemem probably 03/13 no source for what appeared to be sepsis. Patient declined endoscopy. Appears GI has signed off. If there is no severe GI issues any longer I think we have cleared that. We are nearing point discharge probably 03/13 or 6/6 2 SNF. Weakness; present on admission; ongoing -Palliative medicine consulted; -Up and out of bed -PT working with him -Patient is agreeable to going to SNF 03/12 Acute hypoxic respiratory failure: Present admission; improved - does not wear O2 at home; breathing with accessory muscles but saturating ok on O2 NC - ABG in chart does not show hypercapnia or hypoxia - Requiring 2L NC to maintain sats > 88% - Maintain sats between 88 and 92; O2 nasal cannula Severe Hypokalemia; present on admission; improved -Due to vomiting/diarrhea; EKG low voltage but no sig change from baseline; currently 3.2 -Potassium 1.8 on admission; mag of 1.6 on admission -Continue repletion Persistent sinus tachycardia tachypnea; present on admission; controlled -Patient presented in sepsis and thought to be initial cause; intermittent runs of PVC's that are non-sustained likely related to hypokalemia -Current cause of tachy unknown -Continue with fluid hydration -Metoprolol 25mg PO BID; will discharge on this medication as well Diarrhea, possibly infectious vs inflammatory; present on admission; resolving -Outpatient diarrhea 5x daily for 3 weeks; negative PCR stool -Recent abx 2 months ago for COPD exacerbation -Stool WBC, crypto, pcr c-diff, etc pending -Stool osmol, na, k, etc pending -GI consulted and discussed with Dr. Calloway -Loperamide and cholestyramine discontinued -Discussed with patient need for biopsy and Dr. Calloway ready for flex sig this, however, patient declined. Discussed current recs for colonoscopy as outpatient Severe acute hyponatremia second to hypovolemia with encephalopathy; present on admission; resolving -Patient presents physically dehydrated with history of severe nausea and vomiting and diarrhea -Labs intermittently erroneous -Continuing NS at 125ml/hr with K -Change BMP's to daily SIRS with unknown source; present on admission; resolving -tachycardic, tachypneic, with leukocytosis; source possibly GI, although this could be due to severe dehydration -denies systemic symptoms of infection except for diarrhea and vomiting -Initially treated with Vanco IV/PO and meropenem; currently only on meropenem which will stop on 03/13/17 -started on meropenem; held vanc as he has no hx of MRSA -Bcx and Ucx negative -MRSA positive; Stool PCR negative Questionable Ileus, SBO or enteritis; present on admission; stable -3 weeks of diarrhea with negative stool pcr; 1 week of emesis; not terribly convinced this is either ileus/sbo -Zofran for nausea; PPI IV -Heart healthy diet as tolerated -NG discontinued with no residual nausea Chronic COPD; present on admission; stable -Continue home medications -Azithromycin discontinued -Duonebs Q4WA -Resp PCR negative -ABG's within limits and expectations; non-acidemic Respiratory alkalosis with lactic acidosis; resolved -Presented with a lactic acid of 3.3 and anion gap of 25 -Fluids as above -Trend Q2 hr Acute kidney injury; present on admission; resolved -Creatinine on admission was 1.97; baseline is 0.7 -Due to severe volume depletion -Fluids as above Microcytic normochromic anemia; present on admission; stable -Iron studies in chart -Appears to be due to infection vs anemia of chronic disease Hypertension; stable -Patient currently volume depleted Obstructive sleep apnea; present on admission; stable -Need machine from home -O2 overnight Disposition: Patient will continue current course of antibiotics until 03/13/17, at which time he will discharge, the destination of which is uncertain at this point, PT recommends SNF however patient is steadfast in his refusal of this recommendation, will attempt to coordinate an alternative solution such as home health prior to discharge. GI Prophylaxis: Proton Pump Inhibitor VTE Prophylaxis: Sub-Q Heparin (Unfractionated) Resuscitation Status: CPR: Attempt Resuscitation Martín Britton MD Mar 12, 2017 18:19
[2017-03-13] MEDS: Heparin 5,000 Unit/mL Inj SUBQ SCH ×2 (00:30→08:30)
[2017-03-13] MEDS: Meropenem 1 Gm/100 mL NS Minibag Plus IV SCH ×2 (02:40)
[2017-03-13] MEDS: Sodium Chloride LOK Flush 10 mL Syringe IVFLUSH SCH ×2 (02:41→08:43)
[2017-03-13] MEDS: Albuterol-Ipratropium 3 mL Inhalation Solution NEB PRN ×2 (03:18→09:04)
[2017-03-13 03:19] VITALS: PULSE 92; RESP 20; O2SAT 94
[2017-03-13 04:28] VITALS: BP 112/69; PULSE 106; RESP 18; O2SAT 94
[2017-03-13] MEDS: Cholestyramine Resin Powder 4 Gm Packet PO SCH ×2 (05:49→11:58)
[2017-03-13] MEDS: Albuterol-Ipratropium 3 mL Inhalation Solution NEB SCH ×2 (06:03→12:23)
[2017-03-13 06:05] VITALS: PULSE 100; RESP 20; O2SAT 93
--- NOTE | 2017-03-13 06:05 | NUR ---
Edema/Held Heparin: Pt has bilateral LE edema which pt states is not normal for him. RN noted that pt's weight has increased during his stay. Heparin held due to platelet count. Pt slept off/on throughout the night, pleasant and cooperative with care.
[2017-03-13] MEDS: Pantoprazole 40 mg ER24 Tablet PO SCH (08:43)
[2017-03-13 09:05] VITALS: PULSE 105; RESP 24; O2SAT 94
--- NOTE | 2017-03-13 10:18 | NUR ---
Gave access and faxed facesheet to Colleen powers MSW
--- NOTE | 2017-03-13 10:22 | NUR ---
Social Work-readiness for discharge: Data:EMR Reviewed. Pt is on day 6 of hospitalization for sepsis per H&P. Pt is likely ready later today or tomorrow. PT continues to recommend SNF placement. SW followed up with pt at bedside to further discuss, MD order obtained. SW provided pt with SNF choice, pt would like a referral to [facility]. SW requested that UR specialist send referral to [facility]. SW faxed [facility]. Paperwork placed in the chart. SW will continue to follow. Assessment:Pt who would benefit from SNF. Plan:Referral has been made to [facility]. Paperwork and PASRR in the chart. SW will continue to follow. MIRNA Storey
--- NOTE | 2017-03-13 10:44 | NUR ---
Wt gain/edema/Heparin Pt's admit wt 97kg, this AM 102.3kg. Pt is requesting PRN neb tx's more frequently, states he's feeling "a little" more SOB but declines offer for supplemental 02. 02 level has been mid-high 90's this morning. Pt with +1 edema to bilat LE's, keeping elevated. AM Heparin held due to platelet level of 48 on last lab check. The above was discussed with hospitalist.
--- NOTE | 2017-03-13 10:47 | PROG NOTE ---
[address] [address] PROGRESS NOTE PATIENT: CARRINGTON MARMOLEJO V : 1940 MR#: [id number] ADMIT: 03/07/2017 JOB ID: [id number] DATE: 03/13/2017 REASON FOR FOLLOW UP: Profuse diarrhea with profound leukocytosis. INTERVAL HISTORY: Over the weekend, the patient has improved dramatically. His diarrhea has completely ended, and he has no fevers, chills, sweats, shortness of breath or any untoward symptoms. He states he is nearing his normal state of health and is looking forward to being discharged to a rehab facility. PHYSICAL EXAMINATION: Reveals an afebrile gentleman. Temperature 36.7, pulse 105, respiratory rate 24, blood pressure 112/69, saturating well on room air. He is in no acute distress. Oral cavity negative. Lungs clear. Cardiac tones without new murmur. Abdomen entirely benign. LABORATORIES: Include a white count 5500 with normal diff. His platelets are reported to be 48,000, however, which would be an amazing drop from 175,000, yesterday. Creatinine 0.51. LFTs are normal. Procalcitonin down to 0.12. It had been as high as 2.13. Serologic studies include negative CMV, HIV and Strongyloides serologies. Stool for C. diff was negative twice. The rest of the stool PCR panel was negative. Our last chest x-ray was done on the , showed what was probably atelectasis. IMPRESSION: This patient is basically back to his normal state of health after fulminant diarrhea with profound leukocytosis and renal failure. The only concern is his platelet count which has been consistently about 175,000, is reported to be 48,000 today, which seems highly unlikely. I have ordered a stat repeat CBC with a fresh blood draw. RECOMMENDATIONS: 1. A stat CBC will be drawn now. I have ordered a stat CBC with platelet count to see if his platelet count really has dropped over 100,000 overnight to 48,000, which seems unlikely. 2. Meropenem will be discontinued. 3. Infectious Disease will go ahead and sign off as we have no evidence of any ongoing infectious issues. 4. Thank you very much for this consult.
--- NOTE | 2017-03-13 10:59 | NUR ---
SNF choice list provided. MIRNA Storey
--- NOTE | 2017-03-13 11:30 | NUR ---
[facility] can accept pt with Dr. Lundy to follow. MIRNA Storey
[2017-03-13 11:39] LABS: Mean Corpuscular Hemoglobin 29.5 pg (27.0-35.0); Mean Corpuscular Volume 87.3 fL (81-100); NEUTROPHILS % (AUTO) 75 % (40-74); Platelet Count 124 bil/L (150-400)
[2017-03-13 11:40] LABS: BASOPHILS % (AUTO) 1 % (0-3); EOSINOPHILS % (AUTO) 2 % (0-5); MONOCYTES % (AUTO) 10 % (4-12)
--- NOTE | 2017-03-13 11:57 | PCM.DIMED ---
Discharge Instructions Date of Service Mar 13, 2017 Dates of Hospitalization March 07, 2017 at 15:11 Discharge Diagnosis Discharge Diagnosis Diarrhea, metabolic abnormalities, sepsis, chronic respiratory failure secondary to CHF/COPD Diet Discharge Diet: Heart Healthy Activity Discharge Activity: No restrictions Call your provider Call your provider for: Shortness of breath, Excessive diarrhea Patient Instructions Follow-up plan Patient to SNF, consider furosemide for some diuresis patient weighed up probably from fluids however recent renal failure/electrolyte abnormalities preclude aggressive treatment at this time. Follow-up Provider: Jane Morales MD Follow-up with PCP in: 1 week (call for follow-up either with SNF provider and/ or primary care as soon as possible on discharge) Martín Britton MD Mar 13, 2017 11:57
[2017-03-13] MEDS ORDERED: ALBU8.5H2 INHALATION (12:07)
[2017-03-13] MEDS ORDERED: METO25TA6 PO (12:07)
[2017-03-13] MEDS ORDERED: TIOT18CA3 IH (12:07)
[2017-03-13] MEDS ORDERED: ALBU2.5V4 INHALATION (12:07)
[2017-03-13] MEDS ORDERED: Acetaminophen PO (12:07)
[2017-03-13] MEDS ORDERED: FLUT1DIS5 IH (12:07)
[2017-03-13 12:23] VITALS: PULSE 103; RESP 24; O2SAT 95
--- NOTE | 2017-03-13 12:44 | NUR ---
Social Work-discharge: Data:EMR Reviewed. Pt is on day 6 of hospitalization for sepsis per H&P. Pt is medically stable for discharge. PT continues to recommend SNF. Pt is ready to discharge to [facility] today. MALCOM spoke with Enma at [facility] and they are ready to accept pt today. [facility] has arranged w/c van for 1500. MALCOM updated pt at bedside and he is agreeable to plan. Pt declined having MALCOM speak with any of his family stating he will call them himself. MALCOM faxed orders and created packet. MALCOM updated Margaret of discharge to SNF. RN,UC,pt/family, and [facility] all updated and agreeable to plan. Assessment:Pt who would benefit from SNF. Plan:Pt to discharge to [facility] today via cabulance at 1500. RN,UC,pt/family, and [facility] all updated and agreeable to plan. MIRNA Storey
[2017-03-13 13:18] VITALS: BP 116/71; PULSE 103; RESP 18; O2SAT 94
--- NOTE | 2017-03-13 15:35 | NUR ---
DISCHARGE Pt discharged to [facility] this afternoon at 1515, off unit in w/c provided by [facility] transport team. Dtr and son in law present. Pt A&O, denies any pain and in no apparent distress. PICC line had been dc'd this morning by IVT. All belongings returned. All instructions for diet, activity, medication, prescriptions and follow up provided in dc packet. Report called to JONAH at [facility] at 1530. Jonah aware that pt is branden martinez.
--- NOTE | 2017-03-13 18:14 | PCM.DC.MED ---
Discharge Summary Date of Service Mar 13, 2017 Dates of Hospitalization Date of Hospital Admission March 07, 2017 at 15:11 Date of Discharge: Mar 13, 2017 Providers: Admitting Physician: Lino Bucio MD Primary Care Physician: Jane Morales MD Attending Physician: Lino Bucio MD Diagnosis at Time of Discharge Diagnosis at Time of Discharge Diarrhea, metabolic abnormalities, sepsis, chronic respiratory failure secondary to CHF/COPD Consultations Infectious disease, Fraire. Andre, nephrology. Calloway, GI. Procedures XRay, CTs & MRIs Chest x-ray IMPRESSION: Source of dyspnea and weakness is not found. No pneumonia seen. Dictated by: Wilmar Kim M.D. on 03/07/2017 at 13:18 Abdomen pelvis/CT 1. Multiple dilated loops of small and large bowel with scattered air-fluid levels but no focal transition point. The findings again likely represent an ileus or gastroenteritis. No definite evidence of obstruction. 2. Pneumobilia redemonstrated likely related to prior surgery or other intervention. 3. Hypoattenuation of the liver compatible with steatosis. 4. Mild anterior compression deformity of L1 vertebral body appears unchanged. Dictated by: Colt Childers M.D. on 03/07/2017 at 14:[address] 1. 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 2. Mild ventricular prominence is likely related to cerebral volume loss given the associated prominence of the sulci. A component of hydrocephalus cannot be fully excluded. 3. Slight rightward midline shift by approximately 3 mm is nonspecific. No definite evidence of uncal herniation. Further evaluation may be obtained with an MRI if clinically indicated. Findings discussed with Dr. Enrique on 03/07/17 at 2:20 PM. Dictated by: Colt Childers M.D. on 03/07/2017 at 14:14 ECG 12 Lead EKG with sinus tachycardia and low voltage; indiscriminate t-wave depression not significantly different from prior Cardiac Echo Impression Interpretation Summary The study quality was technically difficult. The left ventricular ejection fraction is grossly normal. The right ventricle is grossly normal size. There is no significant valvular heart disease. Electronically signed by: Micky Brantley on Reading Physician:03/08/2017 04:24 PM . Invasive Procedures Patient declined endoscopy 03/10. GI signed off on the diarrhea resolved. It is still recommended. Brief History 76-year-old male smoker with a history of COPD, hyperlipidemia, rheumatoid arthritis, sleep apnea and hypertension who presented to the emergency Department via EMS after a friend found him slumped over on the table and responsive. Patient states that he has had 3 weeks of nonbloody diarrhea, fatigue, weakness, and 1 week of severe nonbloody emesis. Patient states that 3 weeks ago he began having watery and foul smelling diarrhea and states that this occurs up to 5 times daily. Vomiting began last week and occurs postprandial up to 5 times daily. Patient has been unable to eat or drink. Patient denies fever, chills, cough, abdominal pain, dysuria, or chest pain. Patient was recently admitted in December with acute COPD exacerbation with negative MRSA and negative viral PCR. COPD who was diagnosed in 2014 with PFTs showing no response to bronchodilators in FEV1/FEC of 53. Patient states that he is compliant with his allergy medications, Flovent, DuoNeb's, and albuterol inhaler. The emergency department patient's vitals were 36.4, 114, 24, 113/87, 94 in room air. Patient seeing required 2 L of nasal cannula with saturation 95%. Meeting sirs and increased lactic acid, patient was treated with IV resuscitation. Patient had a moderate leukocytosis of 23.4, with a hemoglobin/hematocrit of 18.7/47.8. Was left shift with neutrophils of 83%. Patient also has macrocytosis. CMP was drastically worse with a sodium of 118, potassium of 1.8, chloride of 78 , bicarbonate 15, BUN/creatinine of 84, creatinine of 1.97, glucose of 1.77. Hospital Course 76-year-old male admitted 03/07 found hunched over this table but responsive when his son came to check on him. Patient came in septic with severe diarrhea and electrolyte abnormalities spent 1 week in ICU status and transferred out on 03/12 to [facility]. The entire GI workup was unrevealing and when the diarrhea subsided the patient declined colonoscopy. Renal failure and electrolyte abnormalities resolved when diarrhea subsided. Etiology to the diarrhea and septic presentation not clear he got a 7 day course of ertapenem per infectious disease remained clinically stable for the 36 hours that I saw him for and was discharged to [facility]. 03/12 I am meeting this medically complex patient for the first time today who has been in the intensive care unit for weak and was just transferred out. We are still managing some electrolyte abnormalities hypomagnesemia today. His diarrhea was pretty bad yesterday 9 episodes. Patient is agreeable to SNF placement. Nephrology signed off 03/11 most of the renal failure and electrolyte issues have been corrected. Infectious disease I believe is still following we will stop her earlier mom ertapemem probably 03/13 no source for what appeared to be sepsis. Patient declined endoscopy. Appears GI has signed off. If there is no severe GI issues any longer I think we have cleared that. We are nearing point discharge probably 03/13 or 03/14 2 SNF. atient remained medically stable. Platelet count seen artificially down back up to 124 on discharge.patient might benefit from follow-up electrolytes 03/15 are slick/ and perhaps the following week to verify that they are stable improving.patient realized that he was not strong enough to go home and was agreeable to going to [facility] that is around the corner from his son's house.patient might benefit from some furosemide to diurese off about 10 or 11 kg that he seems to picked up in fluid but given the recent renal failure and severe electrolyte abnormalities I opted not to do that at discharge. Weakness; present on admission; ongoing -Up and out of bed -PT working with him -Patient is agreeable to going to SNF 03/12 Acute hypoxic respiratory failure: resolved 03/13 he is a little dyspneic but does not require oxygen when was declining it. - does not wear O2 at home; breathing with accessory muscles but saturating ok on O2 NC - ABG in chart does not show hypercapnia or hypoxia - Requiring 2L NC to maintain sats > 88% - Maintain sats between 88 and 92; O2 nasal cannula Severe Hypokalemia; present on admission; resolved 03/12 -Due to vomiting/diarrhea; EKG low voltage but no sig change from baseline; currently 3.2 -Potassium 1.8 on admission; mag of 1.6 on admission -Continue repletion Persistent sinus tachycardia tachypnea; present on admission; controlled6/follow -Patient presented in sepsis and thought to be initial cause; intermittent runs of PVC's that are non-sustained likely related to hypokalemia -Current cause of tachy unknown -Continue with fluid hydration -Metoprolol 25mg PO BID; will discharge on this medication as well Diarrhea, possibly infectious vs inflammatory; present on admission; patient has 1-2 bowel movements per day for the last couple days it was 03/10 last time he had 9 bowel movements -Outpatient diarrhea 5x daily for 3 weeks; negative PCR stool -Recent abx 2 months ago for COPD exacerbation -Stool WBC, crypto, pcr c-diff, etc pending -Stool osmol, na, k, etc pending -GI consulted and discussed with Dr. Calloway -Loperamide and cholestyramine discontinued -Discussed with patient need for biopsy and Dr. Calloway ready for flex sig this, however, patient declined. Discussed current recs for colonoscopy as outpatient Severe acute hyponatremia second to hypovolemia with encephalopathy; present on admission; resolved 03/13 -Patient presents physically dehydrated with history of severe nausea and vomiting and diarrhea -Labs intermittently erroneous -Continuing NS at 125ml/hr with K -Change BMP's to daily SIRS with unknown source; present on admission; result 03/13 etiology unclear -tachycardic, tachypneic, with leukocytosis; source possibly GI, although this could be due to severe dehydration -denies systemic symptoms of infection except for diarrhea and vomiting -Initially treated with Vanco IV/PO and meropenem; currently only on meropenem which will stop on 03/13/17 -started on meropenem; held vanc as he has no hx of MRSA -Bcx and Ucx negative -MRSA positive; Stool PCR negative Chronic COPD; present on admission; chronic respiratory status marginal -Continue home medications -Azithromycin discontinued -Duonebs Q4WA -Resp PCR negative -ABG's within limits and expectations; non-acidemic Acute kidney injury; present on admission; resolved -Creatinine on admission was 1.97; baseline is 0.7 -Due to severe volume depletion -Fluids as above Microcytic normochromic anemia; present on admission; stablemild 03/13 -Iron studies in chart -Appears to be due to infection vs anemia of chronic disease Hypertension; stable -Patient currently volume depleted Obstructive sleep apnea; present on admission; stable -Need machine from home -O2 overnight Follow fluids patient might benefit from some diuresis however given recent severe electrolyte abnormalities and renal failure this was not done at the time of discharge. Exam Vital Signs (Last) Date Time Temp Pulse Resp B/P Pulse Ox O2 Delivery O2 Flow Rate FiO2 03/13/17 13:18 36.6 103 18 116/71 94 Room Air 03/12/17 14:27 2.00 Exam Gen.- A+ O 3 no apparent distress. Thin male sitting up in a chair Eyes- open conjunctiva clear, pupils equal nonicteric ENT- ears normal, nose normal Neck- supple/trach midline CVS- RRR no murmur or gallop some pedal edema Lungs CTA, subtle tachypnea GI- NABS/NT soft Musc- moving 4 no obvious deformity Neuro- cranial nerves II through XII intact to gross examination, nonfocal Skin- warm and dry, no rashes/lesions/wounds noted Psych- pleasant and appropriate, Test 03/07/17 12:28 03/07/17 17:02 03/08/17 04:20 03/08/17 06:36 Hemoglobin A1c 5.7% (4.8-5.6) Troponin T 0.017ug/L (0.0-0.011) Thyroid Stimulating Hormone (TSH) 0.209uIU/mL (0.450-4.500) Free Thyroxine 1.17ng/dL (0.82-1.77) Urine Color Yellow (YELLOW) Urine Appearance Hazy (CLEAR,HAZY) Urine pH 5.5 (5.0-8.0) Urine Specific [place] 1.015 (1.003-1.035) Urine Protein Tracemg/dL (NEG,TRACE) Urine Glucose (UA) Negativemg/dL (NEGATIVE) Urine Ketones Negativemg/dL (NEGATIVE) Urine Occult Blood Moderate (NEGATIVE) Urine Nitrite Negative (NEGATIVE) Urine Bilirubin Negative (NEGATIVE) Urine Urobilinogen Normalmg/dL (NORMAL) Urine Leukocyte Esterase Negative (NEGATIVE) Urine RBC 0-2/hpf (0-2) Urine WBC 0-5/hpf (0-5) Urine Epithelial Cells Occasional/hpf (NONE-MOD) Urine Crystals None seen (NONE SEEN) Urine Bacteria Few/hpf (NONE-FEW) Urine Hyaline Casts None/lpf (NONE) Urine Granular Casts Rare (NONE SEEN) Urine Waxy Casts None seen (NONE SEEN) Urine Red Blood Cell Casts None seen (NONE SEEN) Urine White Blood Cell Casts None seen (NONE SEEN) Urine Mucus Present (None Seen) Urine Trichomonas None seen (NONE SEEN) Urine Yeast None (NONE SEEN) Urinalysis Comment None Urine Culture Reflexed Not indicated Urine Osmolality 392mOs/kH2O (250-1200) Urine Random Sodium < 10mEq/L Test 03/08/17 10:05 03/08/17 12:20 03/08/17 14:15 03/08/17 20:45 Metamyelocytes % 1% (0-0) Iron Level 97ug/dL (35-150) Total Iron Binding Capacity 190ug/dL (250-450) Percent Iron Saturation 51%sat (15-50) Unsaturated Iron Binding 92.7ug/dL Ferritin 424ng/mL (30-400) Cytomegalovirus IgG Antibody <0.60U/mL (0.00-0.59) Cytomegalovirus IgM Antibody <30.0AU/mL (0.0-29.9) HIV (1&2) Ag and Ab, 4th Generation Non reactive (Non Reactive) Strongyloides IgG Antibody Negative (Negative) Stool Osmolality 247mOsmol/kg (Not Estab.) Hold [place] Top Tube Received (Received) Test 03/09/17 03:30 03/09/17 10:50 03/12/17 06:10 03/13/17 10:36 Lipase 4U/L (13-60) Vancomycin Level Trough 14.1mcg/mL Lactic Acid Level 0.7mmol/L (0.4-2.0) Prothrombin Time 11.2sec (8.1-12.5) Prothromb Time International Ratio 1.05ratio Sodium Level 142mEq/L (134-144) Potassium Level 3.7mEq/L (3.5-5.2) Chloride Level 103mEq/L (97-108) Carbon Dioxide Level 27mmol/L (18-29) Blood Urea Nitrogen 9mg/dL (8-27) Creatinine 0.51mg/dL (0.76-1.27) Estimat Glomerular Filtration Rate 168mL/min (>59) Glucose Level 91mg/dL (60-99) Calcium Level 8.7mg/dL (8.5-10.1) Phosphorus Level 3.0mg/dL (2.5-4.9) Magnesium Level 1.4mg/dL (1.6-2.6) Total Bilirubin 0.4mg/dL (0.0-1.2) Aspartate Amino Transf (AST/SGOT) 23U/L (0-50) Alanine Aminotransferase (ALT/SGPT) 31U/L (0-44) Alkaline Phosphatase 89U/L (25-160) Total Protein 4.7g/dL (6.4-8.4) Albumin 2.7g/dL (3.4-5.0) Procalcitonin 0.12ng/mL (0.00-0.08) Hold Nguyen Top Tube Received (Received) White Blood Count 7.4th/mm3 (3.8-10.1) Red Blood Count 3.86mil/mm3 (4.40-5.80) Hemoglobin 11.4g/dL (13.8-17.2) Hematocrit 33.7% (41.0-50.0) Mean Corpuscular Volume 87.3fL (81-100) Mean Corpuscular Hemoglobin 29.5pg (27.0-35.0) Mean Corpuscular Hemoglobin Concent 33.8% (32.0-37.0) Red Cell Distribution Width 15.2% (12.3-15.4) Platelet Count 124bil/L (150-400) Neutrophils (%) (Auto) 75% (40-74) Lymphocytes (%) (Auto) 11% (14-46) Monocytes (%) (Auto) 10% (4-12) Eosinophils (%) (Auto) 2% (0-5) Basophils (%) (Auto) 1% (0-3) Band Neutrophils % 3% (1-5) Myelocytes % 3% (0-0) Microbiology Results 03/08/17 Stool WBC, FOBT- No WBCs seen, Positive for occult blood. 03/07/17 Blood Culture -no growth to date 03/08/17 Resp viral PCR- negative 03/08/17 CMV IgG, IgM- negative 03/08/17 HIV nonreactive 03/08/17 Strongyloides Ab- negative 03/09/17 C. difficile DNA Amplification- negative . Discharge Medications Discharge Medications Albuterol HFA (Proair HFA) 8.5 Gm Hfa.aer.ad 2 PUFFS INHALATION Q4H Prescribed by: FARIDA REBOLLEDO MD Fexofenadine (Fexofenadine) 60 Mg Tablet 60 MG PO QAM (Reported) Fluticasone Propionate (Flonase Allergy Relief) 50 Mcg/Actuation [place].susp 1 SPRAY NS BID (Reported) Fluticasone/Salmeterol (Advair 500-50 Diskus) 1 Each Disk.w.dev 1 PUFF IH BID Prescribed by: FARIDA REBOLLEDO MD Metoprolol Tartrate (Metoprolol Tartrate) 25 Mg Tablet 25 MG PO BID Prescribed by: FARIDA REBOLLEDO MD Montelukast (Montelukast) 10 Mg Tablet 10 MG PO HS (Reported) Omeprazole (Omeprazole) 20 Mg Tablet.dr 20 MG PO BIDAC (Reported) Tiotropium [place] (Spiriva) 18 Mcg Cap.w.dev 18 MCG IH DAILY Prescribed by: FARIDA REBOLLEDO MD Varenicline Tartrate (Chantix) 1 Mg Tablet 1 MG PO BID (Reported) As needed ([Acetaminophen]) 325 MG TABLET 650 MG PO Q4H PRN PRN For Pain Prescribed by: FARIDA REBOLLEDO MD Albuterol HFA (Proair HFA) 8.5 Gm Hfa.aer.ad 2 PUFFS INHALATION Q4H PRN PRN For Shortness of Breath (Reported) Albuterol Neb Soln (Albuterol Neb Soln) 2.5 Mg/3 Ml Vial.neb 2.5 MG INHALATION Q4H PRN PRN For Shortness of Breath Prescribed by: FARIDA REBOLLEDO MD Followup Plan Follow-up plan Patient to SNF, consider furosemide for some diuresis patient weighed up probably from fluids however recent renal failure/electrolyte abnormalities preclude aggressive treatment at this time. Discharge Diet: Heart Healthy Discharge Activity: No restrictions Follow-up Provider: Jane Morales MD Follow-up with PCP in: 1 week (call for follow-up either with SNF provider and/ or primary care as soon as possible on discharge) Time spent Greater than 30 minutes Attending Statement Follow fluids patient might benefit from some diuresis however given recent severe electrolyte abnormalities and renal failure this was not done at the time of discharge.CBC/BMP probably 68 or 69 in the following week to verified stable may be more frequently if you start furosemide to diurese him to optimize his pulmonary condition. copies to: Jane Morales MD, Andris E MD Mar 13, 2017 18:14
== END 2017-03-13 15:23 | DRG 871 ==
LOC: SED 12:15 → PCC 15:11 → MPC 03-11 22:37
PROVIDERS: ADMIT Internal Medicine; ATTEND Internal Medicine
PROC: 4A033R1 Measurement of Arterial Saturation, Peripheral, Percutaneous Approach (ICD-10-PCS; principal; 2017-03-07)
DX: A41.9 Sepsis, unspecified organism (principal); J96.01 Acute respiratory failure with hypoxia; G93.40 Encephalopathy, unspecified; N17.9 Acute kidney failure, unspecified; E87.1 Hypo-osmolality and hyponatremia; E87.3 Alkalosis; E87.2 Acidosis; R19.7 Diarrhea, unspecified; E78.5 Hyperlipidemia, unspecified; J44.9 Chronic obstructive pulmonary disease, unspecified; M06.9 Rheumatoid arthritis, unspecified; I10 Essential (primary) hypertension; E87.6 Hypokalemia; E86.0 Dehydration; G47.33 Obstructive sleep apnea (adult) (pediatric); F17.210 Nicotine dependence, cigarettes, uncomplicated